=== PATIENT | male | born 1980 | race Caucasian/White ===

== ENCOUNTER 2016-06-01 19:56 | Emergency (ER) | payer MEDICARE, MEDICAID ==
[~2016-06-01 19:56] MED LIST: /ESCI10TA PO; /LOR25TA PO; /OXYC15TA PO; ALBU17IN INH; AMBI5TAB PO; AMIT25TA PO; AMOX875T PO; ANEXSIA PO; BACT2CRE TOP; BACT800T OR; BISA5TAB7 PO; BISAC5TA PO; CEFT250T8 PO; CEPH2CAP PO; COLA100C2 OR; COLA50CA3 PO; CYMB1CAP5 PO; DIAZ10TA2 PO; DIAZ5TAB PO; DRON5CAP6 PO; DULO30CA PO; ENOX40IN3 SC; EXCETAB OR; FENT50PA TD; GABA300C3 PO; GABA600T PO; GILENYA OR; GILENYA PO; HYDROCODONE; HYDROCODONE OR; HYDROCODONE PO; KLON0.5T OR; LEVA500T PO; LEVA750T PO; LEVE750T5 PO; LEVO750T33 PO; MACR100C3 PO; MACR100C42 PO; MARI2.5C PO; MEGA40SU PO; MEGA625S PO; MEGE400SUS PO; METH5TA PO; MILKSUS OR; MOVA1TAB2 PO; MUCI600T34 PO; MULTIVIT PO; NICO14DI3 TD; NICO21PAT TD; NITR100C37 PO; OLAN5TAB PO; ONDA1TAB15 PO; OXYB5TA PO; OXYC10TA12 OR; OXYC10TA97 OR; OXYC30TA72 PO; OXYC30TA84 PO; OXYC40TA6 PO; OXYCO5TA PO; PEG1POW PO; PERC5TAB8 PO; POTA20TA2 OR; PRED10TA2 OR; PSEUDOEPHEDRINE PO; RITA10TA OR; RITA5TAB OR; ROXICODONE PO; SENN1TAB2 PO; TECF240C PO; TYLE325T5 PO; Trimethoprim/Sulfamethoxazole PO; VALI5TAB PO; VENL100T PO; VENL150C43 PO; VENL75TA3 PO; VICODINES TAB OR; ZOLO100T PO; ZYPR5TAB2 PO; [UNRECOGNIZED DRUG - CODE]; [UNRECOGNIZED DRUG - CODE] PO; [UNRECOGNIZED DRUG - CODE] PO; [UNRECOGNIZED DRUG - CODE] PO; [UNRECOGNIZED DRUG - CODE] PO; antibiotic PO
[2016-06-01] MEDS ORDERED: KETOROLAC 30 MG/ML VIAL (J1885) As Ordered ONE (20:31)
--- NOTE | 2016-06-01 21:49 | EDDOCDS ---
Physician Documentation [facility] Name: Seth Faith Age: 36 yrs Sex: Male : 1980 Arrival Date: 06/01/2016 Time: 19:56 Bed 9 Private MD: Ernie Diane Disposition: 06/01/16 20:29 Discharged to Home/Self Care. Impression: Chronic pain syndrome, Opioid dependence. - Condition is Stable. - Medication Reconciliation, Local Pharmacy Hours form. - Follow up: Private Physician; When: Call to arrange an appointment; Reason: Recheck today's complaints. - Problem is chronic. - Symptoms are unchanged. Historical: - Allergies: Latex (Rash); muscle relaxers (makes spasms worse); - Home Meds: 1. Ambien 5 mg Oral tab 1 tab as needed 2. Cipro 500 mg Oral tab 1 tab every 12 hours 3. diazepam 10 mg Oral tab 1 tab 3 times per day 4. gabapentin 300 mg Oral tab 2 tab three times a day 5. Keppra 750 mg Oral tab 2 times per day 6. oxycodone 30 mg Oral tab 1 tab 4-5 times per day 7. ProAir HFA inhalation as needed - PMHx: Multiple Sclerosis; UTI; - PSHx: none; - Social history: Smoking status: Patient uses tobacco products, light tobacco smoker. Patient uses street drugs, marijuana, No barriers to communication noted, The patient speaks fluent Gabonese. - Family history: Not pertinent. - : The pt / caregiver states he / she is not on anticoagulants. Home medication list is obtained from the patient, [employer] import data. - Exposure Risk Screening:: None identified. Vital Signs: 06/01 20:09 BP 122 / 73; Pulse 75; Resp 20; Temp 96.5(O); Pulse Ox 98% on R/A; Weight 58.97 kg / jmv 130.01 lbs (R); Height 6 ft. 2 in. (187.96 cm) (R); Pain 9/10; 21:11 BP 112 / 56; Pulse 82; Resp 20; Temp 97.5(O); Pulse Ox 97% on R/A; Pain 8/10; jmv 20:09 Body Mass Index 16.69 (58.97 kg, 187.96 cm) [facility] MDM: 20:28 ketorolac 60 mg IM once ordered. cs11 20:45 Financial registration complete. zo 20:55 [facility] Payment Agreement was scanned into [employer] and attached to record. zo Administered Medications: 20:36 Drug: ketorolac 60 mg [ketorolac 30 mg/mL (1 mL) injection solution (2 mL)] Route: IM; mlc Site: left gluteus; Signatures: Ravi De Souza Craig, DO DO cs11 Randee Gallardo RN RN mlc The chart was reviewed and I authenticate all verbal orders and agree with the evaluation and treatment provided.Attachments: 20:55 [facility] Payment Agreement zo MTDD
--- NOTE | 2016-06-01 21:49 | EDDOCDS ---
Nurse's Notes [facility] Name: Seth Faith Age: 36 yrs Sex: Male : 1980 Arrival Date: 06/01/2016 Time: 19:56 Bed 9 Private MD: Ernie Diane Diagnosis: Chronic pain syndrome;Opioid dependence Presentation: 06/01 19:59 Presenting complaint: EMS states: back spasms, radiating down to legs. diagnosed with mlc UTI a few days ago. Acute neurological deficits are not present. Mechanism of Injury: No Mechanism of Injury. Adult Sepsis Screening: The patient does not have new or worsening altered mentation. Patient's respiratory rate is less than 22. Systolic blood pressure is greater than 100. Patient has a qSOFA score of 0- Negative Sepsis Screen. Suicide/Homicide risk assessment- the patient denies having any suicidal and/or homicidal ideations and does not present with any other emotional, behavioral or mental health complaints. Status: Patient is not a government services professional or dependent. Transition of care: patient was not received from another setting of care. 19:59 Acuity: ROBYN Level 4 mlc 19:59 Method Of Arrival: Ambulance mlc Triage Assessment: 20:04 General: Appears in no apparent distress, Behavior is cooperative. Pain: Location: low mlc back area and mid back area Pain currently is 9 out of 10 on a pain scale. Pain radiates to right leg and left leg. HIV screening NA for this visit Offered previously. The patient is triaged at the bedside. See Assessment in Nurses Notes section of ED record. Neurological: Level of Consciousness is awake, alert, obeys commands, Oriented to person, place, time. Respiratory: Airway is patent Respiratory effort is even, unlabored, Respiratory pattern is regular. Derm: Skin is normal. Musculoskeletal: Circulation, motion, and sensation intact. Historical: - Allergies: Latex (Rash); muscle relaxers (makes spasms worse); - Home Meds: 1. Ambien 5 mg Oral tab 1 tab as needed 2. Cipro 500 mg Oral tab 1 tab every 12 hours 3. diazepam 10 mg Oral tab 1 tab 3 times per day 4. gabapentin 300 mg Oral tab 2 tab three times a day 5. Keppra 750 mg Oral tab 2 times per day 6. oxycodone 30 mg Oral tab 1 tab 4-5 times per day 7. ProAir HFA inhalation as needed - PMHx: Multiple Sclerosis; UTI; - PSHx: none; - Social history: Smoking status: Patient uses tobacco products, light tobacco smoker. Patient uses street drugs, marijuana, No barriers to communication noted, The patient speaks fluent Persian. - Family history: Not pertinent. - : The pt / caregiver states he / she is not on anticoagulants. Home medication list is obtained from the patient, [employer] import data. - Exposure Risk Screening:: None identified. Screenin:06 Screening information is obtained from the patient. Fall risk: At risk due to gait mlc disturbance. Assistance ADL's: requires no assistance with activities of daily living. Abuse/DV Screen: The patient / caregiver reports he/she is: not in a situation that causes fear, pain or injury. Nutritional screening: No deficits noted. Advance Directives: Currently, there is no health care proxy. There is an active DNR order but there is no copy available at this time. There is no Power of Visiting Professor. home support is inadequate. Assessment: 20:07 General: see triage assessment . mlc 20:36 Reassessment: Patient appears in no apparent distress at this time. pt medicated per mlc order. pt states that a [employer]ICAL INFORMAT[employer] SPEC is supposed to be coming to his home and helping but has not been showing up. pt states he wishes to speak to a PSA. Kati Yeung, PSA at bedside. . 21:30 General: Appears in no apparent distress, comfortable, Behavior is cooperative. mlc Neurological: Level of Consciousness is awake, alert, obeys commands, Oriented to person, place, time. Respiratory: Airway is patent Respiratory effort is even, unlabored, Respiratory pattern is regular. Derm: Skin is normal. Social Work Consult: 21:07 Social Work Note: Met pt at bedside regarding home care services at home. Pt reports ml4 having [facility] in the home, but does not feel his services are adequate. Admits his elementary school social worker is attempting to transfer his care to [place], however awaiting approval. Correction and Assisting Nursing Care was discussed, however pt refused. Additional referrals for outp services was given at bedside, no concerns noted. Vital Signs: 20:09 BP 122 / 73; Pulse 75; Resp 20; Temp 96.5(O); Pulse Ox 98% on R/A; Weight 58.97 kg (R); jmv Height 6 ft. 2 in. (187.96 cm) (R); Pain 9/10; 21:11 BP 112 / 56; Pulse 82; Resp 20; Temp 97.5(O); Pulse Ox 97% on R/A; Pain 8/10; jmv 20:09 Body Mass Index 16.69 (58.97 kg, 187.96 cm) [facility] Vitals: 20:04 Log In Time N/A - ambulance arrival. mlc ED Course: 19:58 Patient visited by Karli Rodríguez PCA. tmm1 19:58 Ernie Diane is Private Physician. tmm1 19:58 Randee Gallardo RN is Primary Nurse. tmm1 19:58 Patient moved to Waiting tmm1 19:58 Patient moved to 9 tmm1 19:59 Zachary Camara DO is Attending Physician. cs11 19:59 Patient visited by Zachary Camara DO. cs11 20:01 Triage Initiated mlc 20:08 Patient visited by Randee Gallardo RN. mlc 20:12 Patient visited by Catalino Grant PCA. jmv 20:12 Pt greeted and oriented to ED. Patient advised of names of staff involved in care, [facility] location of call cary, wait times and NPO status. Patient has correct armband on for positive identification. Placed in gown. Bed in low position. Call light in reach. Side rails up X2. Pulse ox on. NIBP on. 20:29 Patient visited by Kati Yeung PSA. ml4 20:37 Patient visited by Randee Gallardo RN. mlc 20:55 [facility] Payment Agreement was scanned into [employer] and attached to record. zo 21:07 Patient visited by Kati Yeung PSA. ml4 21:12 Patient visited by Catalino Grant PCA. jmv 21:30 The patient / caregiver is instructed regarding the plan of care and ED course. mlc 21:30 No IV's were initiated during this patient's visit. No procedures done that require mlc assistance. 21:31 Patient visited by Randee Gallardo RN. mlc 21:48 Cleaned of incontinence. alvaro 21:49 Patient visited by Stephanie Singer PCA. alvaro Administered Medications: 20:36 Drug: ketorolac 60 mg [ketorolac 30 mg/mL (1 mL) injection solution (2 mL)] Route: IM; mlc Site: left gluteus; Order Results: There are currently no results for this order. Outcome: 20:29 Discharge ordered by Provider. cs11 21:30 Discharge Assessment: Patient awake, alert and oriented x 3. No cognitive and/or mlc functional deficits noted. Patient verbalized understanding of disposition instructions. patient administered narcotics - no. The following High Risk Discharge criteria are identified: None. Discharged to home via ambulance. Condition: stable. Discharge instructions given to patient, Instructed on discharge instructions, Demonstrated understanding of instructions, Pt was receptive of discharge instructions/ teaching. No special radiology studies were completed. Property sent home with patient. 21:49 Patient left the ED. mlc Signatures: Kati Yeung, PSA PSA ml4 Ravi De Souza Destiny, LAUNDRY BAG PUNCH OPERATOR LAUNDRY BAG PUNCH OPERATOR alvaro Zachary Camara, DO DO cs11 aKrli Rodríguez, LAUNDRY BAG PUNCH OPERATOR LAUNDRY BAG PUNCH OPERATOR tmm1 Randee Gallardo,RN RN mlc Catalino Grant, LAUNDRY BAG PUNCH OPERATOR LAUNDRY BAG PUNCH OPERATOR jmv MTDD
--- NOTE | 2016-06-03 22:49 | EDDOCDS ---
Physician Documentation [facility] Name: Seth Faith Age: 36 yrs Sex: Male : 1980 Arrival Date: 06/01/2016 Time: 19:56 Bed 9 Private MD: Ernie Diane Disposition: 06/01/16 20:29 Discharged to Home/Self Care. Impression: Chronic pain syndrome, Opioid dependence. - Condition is Stable. - Medication Reconciliation, Local Pharmacy Hours form. - Follow up: Private Physician; When: Call to arrange an appointment; Reason: Recheck today's complaints. - Problem is chronic. - Symptoms are unchanged. Historical: - Allergies: Latex (Rash); muscle relaxers (makes spasms worse); - Home Meds: 1. Ambien 5 mg Oral tab 1 tab as needed 2. Cipro 500 mg Oral tab 1 tab every 12 hours 3. diazepam 10 mg Oral tab 1 tab 3 times per day 4. gabapentin 300 mg Oral tab 2 tab three times a day 5. Keppra 750 mg Oral tab 2 times per day 6. oxycodone 30 mg Oral tab 1 tab 4-5 times per day 7. ProAir HFA inhalation as needed - PMHx: Multiple Sclerosis; UTI; - PSHx: none; - Social history: Smoking status: Patient uses tobacco products, light tobacco smoker. Patient uses street drugs, marijuana, No barriers to communication noted, The patient speaks fluent Comoran. - Family history: Not pertinent. - : The pt / caregiver states he / she is not on anticoagulants. Home medication list is obtained from the patient, [place] import data. - Exposure Risk Screening:: None identified. Vital Signs: 06/01 20:09 BP 122 / 73; Pulse 75; Resp 20; Temp 96.5(O); Pulse Ox 98% on R/A; Weight 58.97 kg / jmv 130.01 lbs (R); Height 6 ft. 2 in. (187.96 cm) (R); Pain 9/10; 21:11 BP 112 / 56; Pulse 82; Resp 20; Temp 97.5(O); Pulse Ox 97% on R/A; Pain 8/10; jmv 20:09 Body Mass Index 16.69 (58.97 kg, 187.96 cm) [facility] MDM: 20:28 ketorolac 60 mg IM once ordered. cs11 20:45 Financial registration complete. zo 20:55 [facility] Payment Agreement was scanned into [employer] and attached to record. zo 06/02 06:23 T-Sheet-- Draft Copy was scanned into [employer] and attached to record. hs2 Administered Medications: 06/01 20:36 Drug: ketorolac 60 mg [ketorolac 30 mg/mL (1 mL) injection solution (2 mL)] Route: IM; mlc Site: left gluteus; Signatures: Ravi De Souza Craig, DO cs11 Randee GallardoRN RN mlc Adelina Chowdhury, Reg Reg hs2 The chart was reviewed and I authenticate all verbal orders and agree with the evaluation and treatment provided.Attachments: 20:55 [facility] Payment Agreement zo 06/02 06:23 T-Sheet-- Draft Copy hs2 Chart Complete MTDD
--- NOTE | 2016-06-03 22:49 | EDDOCDS ---
Physician Documentation [facility] Name: Seth Faith Age: 36 yrs Sex: Male : 1980 Arrival Date: 06/01/2016 Time: 19:56 Bed 9 Private MD: Ernie Diane Disposition: 06/01/16 20:29 Discharged to Home/Self Care. Impression: Chronic pain syndrome, Opioid dependence. - Condition is Stable. - Medication Reconciliation, Local Pharmacy Hours form. - Follow up: Private Physician; When: Call to arrange an appointment; Reason: Recheck today's complaints. - Problem is chronic. - Symptoms are unchanged. Historical: - Allergies: Latex (Rash); muscle relaxers (makes spasms worse); - Home Meds: 1. Ambien 5 mg Oral tab 1 tab as needed 2. Cipro 500 mg Oral tab 1 tab every 12 hours 3. diazepam 10 mg Oral tab 1 tab 3 times per day 4. gabapentin 300 mg Oral tab 2 tab three times a day 5. Keppra 750 mg Oral tab 2 times per day 6. oxycodone 30 mg Oral tab 1 tab 4-5 times per day 7. ProAir HFA inhalation as needed - PMHx: Multiple Sclerosis; UTI; - PSHx: none; - Social history: Smoking status: Patient uses tobacco products, light tobacco smoker. Patient uses street drugs, marijuana, No barriers to communication noted, The patient speaks fluent Honduran. - Family history: Not pertinent. - : The pt / caregiver states he / she is not on anticoagulants. Home medication list is obtained from the patient, [employer] import data. - Exposure Risk Screening:: None identified. Vital Signs: 06/01 20:09 BP 122 / 73; Pulse 75; Resp 20; Temp 96.5(O); Pulse Ox 98% on R/A; Weight 58.97 kg / jmv 130.01 lbs (R); Height 6 ft. 2 in. (187.96 cm) (R); Pain 9/10; 21:11 BP 112 / 56; Pulse 82; Resp 20; Temp 97.5(O); Pulse Ox 97% on R/A; Pain 8/10; jmv 20:09 Body Mass Index 16.69 (58.97 kg, 187.96 cm) [facility] MDM: 20:28 ketorolac 60 mg IM once ordered. cs11 20:45 Financial registration complete. zo 20:55 [facility] Payment Agreement was scanned into [employer] and attached to record. zo 06/02 06:23 T-Sheet-- Draft Copy was scanned into [employer] and attached to record. hs2 Administered Medications: 06/01 20:36 Drug: ketorolac 60 mg [ketorolac 30 mg/mL (1 mL) injection solution (2 mL)] Route: IM; mlc Site: left gluteus; Signatures: Ravi De Souza Craig, DO cs11 Randee GallardoRN RN mlc Adelina Chowdhury, Reg Reg hs2 The chart was reviewed and I authenticate all verbal orders and agree with the evaluation and treatment provided.Attachments: 20:55 [facility] Payment Agreement zo 06/02 06:23 T-Sheet-- Draft Copy hs2 Chart Complete MTDD
--- NOTE | 2016-06-03 22:49 | EDDOCDS ---
Nurse's Notes [facility] Name: Seth Faith Age: 36 yrs Sex: Male : 1980 Arrival Date: 06/01/2016 Time: 19:56 Bed 9 Private MD: Ernie Diane Diagnosis: Chronic pain syndrome;Opioid dependence Presentation: 06/01 19:59 Presenting complaint: EMS states: back spasms, radiating down to legs. diagnosed with mlc UTI a few days ago. Acute neurological deficits are not present. Mechanism of Injury: No Mechanism of Injury. Adult Sepsis Screening: The patient does not have new or worsening altered mentation. Patient's respiratory rate is less than 22. Systolic blood pressure is greater than 100. Patient has a qSOFA score of 0- Negative Sepsis Screen. Suicide/Homicide risk assessment- the patient denies having any suicidal and/or homicidal ideations and does not present with any other emotional, behavioral or mental health complaints. Status: Patient is not a family services manager or dependent. Transition of care: patient was not received from another setting of care. 19:59 Acuity: ROBYN Level 4 mlc 19:59 Method Of Arrival: Ambulance mlc Triage Assessment: 20:04 General: Appears in no apparent distress, Behavior is cooperative. Pain: Location: low mlc back area and mid back area Pain currently is 9 out of 10 on a pain scale. Pain radiates to right leg and left leg. HIV screening NA for this visit Offered previously. The patient is triaged at the bedside. See Assessment in Nurses Notes section of ED record. Neurological: Level of Consciousness is awake, alert, obeys commands, Oriented to person, place, time. Respiratory: Airway is patent Respiratory effort is even, unlabored, Respiratory pattern is regular. Derm: Skin is normal. Musculoskeletal: Circulation, motion, and sensation intact. Historical: - Allergies: Latex (Rash); muscle relaxers (makes spasms worse); - Home Meds: 1. Ambien 5 mg Oral tab 1 tab as needed 2. Cipro 500 mg Oral tab 1 tab every 12 hours 3. diazepam 10 mg Oral tab 1 tab 3 times per day 4. gabapentin 300 mg Oral tab 2 tab three times a day 5. Keppra 750 mg Oral tab 2 times per day 6. oxycodone 30 mg Oral tab 1 tab 4-5 times per day 7. ProAir HFA inhalation as needed - PMHx: Multiple Sclerosis; UTI; - PSHx: none; - Social history: Smoking status: Patient uses tobacco products, light tobacco smoker. Patient uses street drugs, marijuana, No barriers to communication noted, The patient speaks fluent Korean. - Family history: Not pertinent. - : The pt / caregiver states he / she is not on anticoagulants. Home medication list is obtained from the patient, Glio import data. - Exposure Risk Screening:: None identified. Screenin:06 Screening information is obtained from the patient. Fall risk: At risk due to gait mlc disturbance. Assistance ADL's: requires no assistance with activities of daily living. Abuse/DV Screen: The patient / caregiver reports he/she is: not in a situation that causes fear, pain or injury. Nutritional screening: No deficits noted. Advance Directives: Currently, there is no health care proxy. There is an active DNR order but there is no copy available at this time. There is no Power of Telecommunication Operator. home support is inadequate. Assessment: 20:07 General: see triage assessment . mlc 20:36 Reassessment: Patient appears in no apparent distress at this time. pt medicated per mlc order. pt states that a BIOMEDICAL ENGINEERING SUPERVISOR is supposed to be coming to his home and helping but has not been showing up. pt states he wishes to speak to a PSA. Kati Yeung, PSA at bedside. . 21:30 General: Appears in no apparent distress, comfortable, Behavior is cooperative. mlc Neurological: Level of Consciousness is awake, alert, obeys commands, Oriented to person, place, time. Respiratory: Airway is patent Respiratory effort is even, unlabored, Respiratory pattern is regular. Derm: Skin is normal. Social Work Consult: 21:07 Social Work Note: Met pt at bedside regarding home care services at home. Pt reports ml4 having [facility] in the home, but does not feel his services are adequate. Admits his social security benefits interviewer is attempting to transfer his care to [place], however awaiting approval. Long Term and Assisting Nursing Care was discussed, however pt refused. Additional referrals for outp services was given at bedside, no concerns noted. Vital Signs: 20:09 BP 122 / 73; Pulse 75; Resp 20; Temp 96.5(O); Pulse Ox 98% on R/A; Weight 58.97 kg (R); jmv Height 6 ft. 2 in. (187.96 cm) (R); Pain 9/10; 21:11 BP 112 / 56; Pulse 82; Resp 20; Temp 97.5(O); Pulse Ox 97% on R/A; Pain 8/10; jmv 20:09 Body Mass Index 16.69 (58.97 kg, 187.96 cm) [facility] Vitals: 20:04 Log In Time N/A - ambulance arrival. mlc ED Course: 19:58 Patient visited by Karli Rodríguez PCA. tmm1 19:58 Ernie Diane is Private Physician. tmm1 19:58 Randee Gallardo RN is Primary Nurse. tmm1 19:58 Patient moved to Waiting tmm1 19:58 Patient moved to 9 tmm1 19:59 Zachary Camara DO is Attending Physician. cs11 19:59 Patient visited by Zachary Camara DO. cs11 20:01 Triage Initiated mlc 20:08 Patient visited by Randee Gallardo RN. mlc 20:12 Patient visited by Catalino Grant PCA. jmv 20:12 Pt greeted and oriented to ED. Patient advised of names of staff involved in care, [facility] location of call cary, wait times and NPO status. Patient has correct armband on for positive identification. Placed in gown. Bed in low position. Call light in reach. Side rails up X2. Pulse ox on. NIBP on. 20:29 Patient visited by Kati Yeung PSA. ml4 20:37 Patient visited by Randee Gallardo RN. mlc 20:55 [facility] Payment Agreement was scanned into [employer] and attached to record. zo 21:07 Patient visited by Kati Yeung PSA. ml4 21:12 Patient visited by Catalino Grant PCA. jmv 21:30 The patient / caregiver is instructed regarding the plan of care and ED course. mlc 21:30 No IV's were initiated during this patient's visit. No procedures done that require mlc assistance. 21:31 Patient visited by Randee Gallardo RN. mlc 21:48 Cleaned of incontinence. alvaro 21:49 Patient visited by Stephanie Singer PCA. alvaro 06/02 06:23 T-Sheet-- Draft Copy was scanned into [employer] and attached to record. hs2 Administered Medications: 01/01 20:36 Drug: ketorolac 60 mg [ketorolac 30 mg/mL (1 mL) injection solution (2 mL)] Route: IM; mlc Site: left gluteus; Order Results: There are currently no results for this order. Outcome: 20:29 Discharge ordered by Provider. cs11 21:30 Discharge Assessment: Patient awake, alert and oriented x 3. No cognitive and/or mlc functional deficits noted. Patient verbalized understanding of disposition instructions. patient administered narcotics - no. The following High Risk Discharge criteria are identified: None. Discharged to home via ambulance. Condition: stable. Discharge instructions given to patient, Instructed on discharge instructions, Demonstrated understanding of instructions, Pt was receptive of discharge instructions/ teaching. No special radiology studies were completed. Property sent home with patient. 21:49 Patient left the ED. [facility] [place] Signatures: Kati Yeung, PSA PSA ml4 Ravi De Souza Destiny, CONTENT ANALYST CONTENT ANALYST alvaro Zachary Camara, DO DO cs11 Karli Rodríguez, CONTENT ANALYST CONTENT ANALYST tmm1 Randee Gallardo,CHERISE RN mlc Adelnia Chowdhury, Reg Reg hs2 Catalino Grant, CONTENT ANALYST CONTENT ANALYST jmv Chart Complete MTDD
== END 2016-06-01 21:49 | disposition home or self-care (01) ==
LOC: M ED 19:56
DX: G89.29 Other chronic pain (principal); F11.20 Opioid dependence, uncomplicated; G35 Multiple sclerosis; Z72.0 Tobacco use; Z79.899 Other long term (current) drug therapy; Z91.040 Latex allergy status; Z88.8 Allergy status to other drugs, medicaments and biological substances
CPT/HCPCS: 96372; 99283; J1885

== ENCOUNTER 2016-06-02 15:14 | Emergency (ER) | payer MEDICARE, MEDICAID ==
[2016-06-02 18:35] LABS: BASO % 0.5 % (0.0-1.0); EOS # 0.2 K/mm3 (0.0-0.50); EOS % 1.8 % (0.0-3.0); LARGE UNSTAINED CELL # 0.2 K/mm3 (0.0-0.4); LARGE UNSTAINED CELL % 2.4 % (0.0-4.0); LYMPH # 2.7 K/mm3 (1.5-4.5); LYMPH % 31.5 % (24.0-44.0); MEAN CORPUSCULAR VOLUME 87.4 fl (80.0-96.0); MONO # 0.6 K/mm3 (0.0-0.8); MONO % 6.7 % (0.0-5.0); NEUTROPHILS # 4.8 K/mm3 (1.8-7.7); PLATELET COUNT, AUTOMATED 370 k/mm3 (150-450); RED CELL DISTRIBUTION WIDTH 13.9 % (11.5-14.5); WHITE BLOOD COUNT 8.4 K/mm3 (4.0-10.0)
[2016-06-02 19:01] LABS: ALBUMIN 3.6 GM/DL (3.2-5.2); ALBUMIN/GLOBULIN RATIO 1.09 (1.00-1.93); ALKALINE PHOSPHATASE 126 U/L (45-117); ALT/SGPT 12 U/L (12-78); ANION GAP 8 MEQ/L (8-16); AST/SGOT 11 U/L (15-37); BILIRUBIN,DIRECT < 0.1 MG/DL (0.0-0.2); BILIRUBIN,TOTAL 0.3 MG/DL (0.2-1.0); BLOOD UREA NITROGEN 20 MG/DL (7-18); CARBON DIOXIDE LEVEL 29 MEQ/L (21-32); CHLORIDE LEVEL 109 MEQ/L (98-107); CREATININE FOR GFR 0.68 MG/DL (0.70-1.30); GLOMERULAR FILTRATION RATE > 60.0 (>60); GLUCOSE, FASTING 79 MG/DL (70-105); POTASSIUM SERUM 3.6 MEQ/L (3.5-5.1); SODIUM LEVEL 146 MEQ/L (136-145); TOTAL PROTEIN 6.9 GM/DL (6.4-8.2)
--- NOTE | 2016-06-02 20:00 | EDDOCDS ---
Physician Documentation [facility] Name: Seth Faith Age: 36 yrs Sex: Male : 1980 Arrival Date: 06/02/2016 Time: 15:14 Bed 14 Private MD: Disposition: 06/02 19:12 Critical Care: Critical care not applicable. pc Disposition: 06/02/16 19:14 Discharged to Home/Self Care. Impression: Chronic pain syndrome, Malingerer [conscious simulation], Multiple sclerosis. - Condition is Stable. - Discharge Instructions: Chronic Pain. - Medication Reconciliation, Local Pharmacy Hours form. - Follow up: Ernie Diane; When: Tomorrow; Reason: Continuance of care. - Problem is chronic. - Symptoms are unchanged. Historical: - Allergies: Latex (Rash); muscle relaxers (makes spasms worse); - Home Meds: 1. Ambien 5 mg Oral tab 1 tab as needed 2. Cipro 500 mg Oral tab 1 tab every 12 hours 3. diazepam 10 mg Oral tab 1 tab 3 times per day hasnt taken in 1 week 4. gabapentin 300 mg Oral tab 2 tab three times a day 5. Keppra 750 mg Oral tab 2 times per day 6. oxycodone 30 mg Oral tab 1 tab 4-5 times per day couple of days 7. ProAir HFA inhalation as needed - PMHx: Multiple Sclerosis; UTI; - PSHx: none; - Social history: Smoking status: Patient states former smoker of tobacco. No barriers to communication noted, The patient speaks fluent Mauritanian, Speaks appropriately for age. - Family history: Not pertinent. - : The pt / caregiver states he / she is not on anticoagulants. Home medication list is obtained from the patient. - Exposure Risk Screening:: None identified. Vital Signs: 15:22 BP 117 / 72; Pulse 74; Resp 18; Temp 98.5(O); Pulse Ox 99% on R/A; Weight 58.97 kg / nb2 130.01 lbs (R); Height 6 ft. 2 in. (187.96 cm) (R); Pain 9/10; 17:16 BP 112 / 68; Pulse 78; Resp 16; Pulse Ox 100% on R/A; js13 19:24 BP 125 / 81; Pulse 70; Resp 18; Temp 98.3(TE); Pulse Ox 100% on R/A; Pain 8/10; alvaro 15:22 Body Mass Index 16.69 (58.97 kg, 187.96 cm) nb2 MDM: 17:45 IV Saline Lock ordered. fg 17:45 Undress patient appropriately for examination ordered. fg 17:46 NOTHING BY MOUTH+DIET ordered. EDMS 17:46 Basic Metabolic Profile Ordered. EDMS 17:46 CBC with Diff Ordered. EDMS 17:46 Lipase Ordered. EDMS 17:46 Liver Profile Ordered. EDMS 18:46 Financial registration complete. zo 18:46 [facility] Payment Agreement was scanned into [employer] and attached to record. zo 19:05 Basic Metabolic Profile Reviewed. pc 19:05 CBC with Diff Reviewed. pc 19:05 Liver Profile Reviewed. pc 19:05 Lipase Reviewed. pc 19:12 Data reviewed: old medical records, vital signs, nurses notes, lab test results. Test pc interpretation: LAB - all labs as ordered have been reviewed, interpreted and considered in the overall management of the clinical presentation;. The patient has been re-examined and re-evaluated. The clinical presentation did not require any ED treatment or interventions. as he is tolerating PO fluids, has had a normal bowel movement in the ED and has essentially slept through most of his ED visit, per RN reports. Disposition: The historical points, examination findings, and any diagnostic results supporting the provided diagnosis, were discussed with the patient or legal guardian. The need for outpatient follow up with the provider listed on their discharge instructions was discussed. They were encouraged to return to [facility], or the nearest ED, if symptoms worsen/persist, or for any other questions/concerns. Administered Medications: 19:12 CANCELLED (Other Intervention Used): NS 0.9% 1000 ml IV at bolus once pc Signatures: Dispatcher [employer] EDMN Kendrick Sears MD MD pc Michelson, Staci, RN RN srm Newman, Jill New, RN RN jan Olin, Zoeann zo Sullivan, Jennifer, RN RN js13 Gill, Frances, MD MD fg The chart was reviewed and I authenticate all verbal orders and agree with the evaluation and treatment provided.Corrections: (The following items were deleted from the chart) 19:12 19:07 NS 0.9% 1000 ml IV at bolus once ordered. pc pc Attachments: 18:46 [facility] Payment Agreement zo MTDD
--- NOTE | 2016-06-02 20:00 | EDDOCDS ---
Nurse's Notes [facility] Name: Seth Faith Age: 36 yrs Sex: Male : 1980 Arrival Date: 06/02/2016 Time: 15:14 Bed 14 Private MD: Diagnosis: Chronic pain syndrome;Malingerer [conscious simulation];Multiple sclerosis Presentation: 06/02 15:18 Presenting complaint: Patient states: all over abd pain and lower back spasms. hx of srm same- seen x4 in past 6 days. Risk factors: the patient reports not having a history of previous torsion. Adult Sepsis Screening: The patient does not have new or worsening altered mentation. Patient's respiratory rate is less than 22. Systolic blood pressure is greater than 100. Patient has a qSOFA score of 0- Negative Sepsis Screen. Suicide/Homicide risk assessment- the patient denies having any suicidal and/or homicidal ideations and does not present with any other emotional, behavioral or mental health complaints. Status: Patient is not a underwriting service representative or dependent. Transition of care: patient was not received from another setting of care. 15:18 Acuity: ROBYN Level 3 [facility] 15:18 Method Of Arrival: Ambulance [facility] Triage Assessment: 15:21 General: Appears in no apparent distress, ill, Behavior is appropriate for age, srm cooperative. Pain: Pain currently is 9 out of 10 on a pain scale. HIV screening NA for this visit Offered previously. GI: Reports all over abd pain. Historical: - Allergies: Latex (Rash); muscle relaxers (makes spasms worse); - Home Meds: 1. Ambien 5 mg Oral tab 1 tab as needed 2. Cipro 500 mg Oral tab 1 tab every 12 hours 3. diazepam 10 mg Oral tab 1 tab 3 times per day hasnt taken in 1 week 4. gabapentin 300 mg Oral tab 2 tab three times a day 5. Keppra 750 mg Oral tab 2 times per day 6. oxycodone 30 mg Oral tab 1 tab 4-5 times per day couple of days 7. ProAir HFA inhalation as needed - PMHx: Multiple Sclerosis; UTI; - PSHx: none; - Social history: Smoking status: Patient states former smoker of tobacco. No barriers to communication noted, The patient speaks fluent Malay, Speaks appropriately for age. - Family history: Not pertinent. - : The pt / caregiver states he / she is not on anticoagulants. Home medication list is obtained from the patient. - Exposure Risk Screening:: None identified. Screenin:22 Screening information is obtained from the patient. Fall risk: At risk due to MS. srm Assistance ADL's: requires no assistance with activities of daily living. Abuse/DV Screen: The patient / caregiver reports he/she is: not in a situation that causes fear, pain or injury. Nutritional screening: No deficits noted. Advance Directives: There is an active DNR order but there is no copy available at this time. home support is adequate. Assessment: 15:24 General: Appears in no apparent distress, Behavior is appropriate for age, cooperative. js13 General: Patient is laughing and joking with staff. . Pain: Location: abdomen. Neurological: Level of Consciousness is awake, alert. Respiratory: Airway is patent Respiratory effort is even, unlabored, Respiratory pattern is regular, symmetrical. GI: Abdomen is non- distended Abd is soft Abd is tender to palpation. Derm: Skin is pink, warm & dry. 16:00 General: Appears in no apparent distress, patient is sleeping soundly resp unlabored. ml6 Pain:. GI: Abdomen is flat, non- distended Bowel sounds present X 4 quads. Abd is soft and non tender X 4 quads. 16:09 General: Appears in no apparent distress, comfortable, to be sleeping. Respiratory: js13 Airway is patent Respiratory effort is even, unlabored, Respiratory pattern is regular, symmetrical. Derm: Skin is pink, warm & dry. 17:16 Adult Sepsis Screening: The patient does not have new or worsening altered mentation. js13 Patient's respiratory rate is less than 22. Systolic blood pressure is greater than 100. Patient has a qSOFA score of 0- Negative Sepsis Screen. General: Appears in no apparent distress, comfortable, Behavior is appropriate for age, cooperative. Pain: Location: abdomen. Neurological: Level of Consciousness is awake, alert. Respiratory: Airway is patent Respiratory effort is even, unlabored, Respiratory pattern is regular, symmetrical. GI: Abdomen is flat, non- distended Bowel sounds present X 4 quads. Abd is soft and non tender. Derm: Skin is pink, warm & dry. 17:57 General: IV access cancelled per provider.. js13 18:12 General: Appears in no apparent distress, comfortable, Behavior is appropriate for age, js13 cooperative. Pain: Location: abdomen. Neurological: Level of Consciousness is awake, alert. Respiratory: Airway is patent Respiratory effort is even, unlabored, Respiratory pattern is regular, symmetrical. GI: Abdomen is flat, non- distended Bowel sounds present X 4 quads. Abd is soft and non tender. Derm: Skin is pink, warm & dry. 18:43 General: Patient was incontinent of a large amount of stool. . js13 19:23 General: Appears in no apparent distress, comfortable, Behavior is appropriate for age, js13 cooperative. Pain: Location: abdomen. Neurological: Level of Consciousness is awake, alert. Respiratory: Airway is patent Respiratory effort is even, unlabored, Respiratory pattern is regular, symmetrical. GI: Abdomen is flat, non- distended Bowel sounds present X 4 quads. Abd is soft and non tender. Derm: Skin is pink, warm & dry. Vital Signs: 15:22 BP 117 / 72; Pulse 74; Resp 18; Temp 98.5(O); Pulse Ox 99% on R/A; Weight 58.97 kg (R); nb2 Height 6 ft. 2 in. (187.96 cm) (R); Pain 9/10; 17:16 BP 112 / 68; Pulse 78; Resp 16; Pulse Ox 100% on R/A; js13 19:24 BP 125 / 81; Pulse 70; Resp 18; Temp 98.3(TE); Pulse Ox 100% on R/A; Pain 8/10; alvaro 15:22 Body Mass Index 16.69 (58.97 kg, 187.96 cm) nb2 Vitals: 15:22 Log In Time N/A - ambulance arrival. nb2 ED Course: 15:15 Patient visited by Na Oliva, Concrete Swimming Pool Installer. deg 15:15 Patient moved to Waiting deg 15:16 Fabi Salomon,RN is Primary Nurse. deg 15:16 Patient moved to 14 deg 15:19 Triage Initiated [facility] 15:22 Patient visited by Marsha Curtis. nb2 15:22 Bed in low position. Call light in reach. Side rails up X2. nb2 15:22 The patient / caregiver is instructed regarding the plan of care and ED course. [facility] 15:26 Patient visited by Fabi Salomon,CHERISE. [facility] 16:10 Patient visited by Fabi Salomon RN. js13 17:24 Patient visited by Fabi Salomon RN. js13 17:43 Sara Sorto MD is Attending Physician. fg 17:54 Pt greeted and oriented to ED. Patient advised of names of staff involved in care, dem1 location of call cary, wait times and NPO status. Placed in gown. 17:55 Patient visited by Kris Borrero. dem1 17:57 No IV's were initiated during this patient's visit. No procedures done that require genia assistance. 18:13 Patient visited by Fabi Salomon RN. js13 18:34 Patient visited by Sara Sorto MD. fg 18:46 [facility] Payment Agreement was scanned into [employer] and attached to record. zo 18:57 Repositioned patient. Cleaned of incontinence. dem1 18:58 Patient visited by Kris Borrero. dem1 19:04 Primary Nurse role handed off by Fabi Salomon RN js13 19:05 Attending Physician role handed off by Sara Sorto MD pc 19:05 Kendrick Sears MD is Attending Physician. pc 19:14 Ernie Diane is Referral Physician. pc 19:24 Patient visited by Stephanie Singer PCA. alvaro 19:25 Patient visited by Fabi Salomon RN. js13 Administered Medications: 19:12 CANCELLED (Other Intervention Used): NS 0.9% 1000 ml IV at bolus once pc Order Results: Lab Order: Basic Metabolic Profile; SPEC'M 06/02/16 18:14 Test: GLUCOSE, FASTING; Value: 79; Range: 70-105; Units: MG/DL; Status: F Test: BLOOD UREA NITROGEN; Value: 20; Range: 7-18; Abnormal: Above high normal; Units: MG/DL; Status: F Test: CREATININE FOR GFR; Value: 0.68; Range: 0.70-1.30; Abnormal: Below low normal; Units: MG/DL; Status: F Test: GLOMERULAR FILTRATION RATE; Value: > 60.0; Range: >60; Status: F Test: SODIUM LEVEL; Value: 146; Range: 136-145; Abnormal: Above high normal; Units: MEQ/L; Status: F Test: POTASSIUM SERUM; Value: 3.6; Range: 3.5-5.1; Units: MEQ/L; Status: F Test: CHLORIDE LEVEL; Value: 109; Range: 98-107; Abnormal: Above high normal; Units: MEQ/L; Status: F Test: CARBON DIOXIDE LEVEL; Value: 29; Range: 21-32; Units: MEQ/L; Status: F Test: ANION GAP; Value: 8; Range: 8-16; Units: MEQ/L; Status: F Test: CALCIUM LEVEL; Value: 9.0; Range: 8.5-10.1; Units: MG/DL; Status: F Test Note: ; Units are mL/min/1.73 m2 Chronic Kidney Disease Staging per NKF: Stage I & II GFR >=60 Normal to Mildly Decreased Stage III GFR 30-59 Moderately Decreased Stage IV GFR 15-29 Severely Decreased Stage V GFR <15 Very Little GFR Left ESRD GFR <15 on [employer] Lab Order: CBC with Diff; SPEC'M 06/02/16 18:14 Test: WHITE BLOOD COUNT; Value: 8.4; Range: 4.0-10.0; Units: K/mm3; Status: F Test: RED BLOOD COUNT; Value: 4.61; Range: 4.30-6.10; Units: M/mm3; Status: F Test: HEMOGLOBIN; Value: 12.9; Range: 14.0-18.0; Abnormal: Below low normal; Units: g/dl; Status: F Test: HEMATOCRIT; Value: 40.3; Range: 42.0-52.0; Abnormal: Below low normal; Units: %; Status: F Test: MEAN CORPUSCULAR VOLUME; Value: 87.4; Range: 80.0-96.0; Units: fl; Status: F Test: MEAN CORPUSCULAR HEMOGLOBIN; Value: 28.0; Range: 27.0-33.0; Units: pg; Status: F Test: MEAN CORPUSCULAR HGB CONC; Value: 32.0; Range: 32.0-36.5; Units: g/dl; Status: F Test: RED CELL DISTRIBUTION WIDTH; Value: 13.9; Range: 11.5-14.5; Units: %; Status: F Test: PLATELET COUNT, AUTOMATED; Value: 370; Range: 150-450; Units: k/mm3; Status: F Test: NEUTROPHILS %; Value: 57.0; Range: 36.0-66.0; Units: %; Status: F Test: LYMPH %; Value: 31.5; Range: 24.0-44.0; Units: %; Status: F Test: MONO %; Value: 6.7; Range: 0.0-5.0; Abnormal: Above high normal; Units: %; Status: F Test: EOS %; Value: 1.8; Range: 0.0-3.0; Units: %; Status: F Test: BASO %; Value: 0.5; Range: 0.0-1.0; Units: %; Status: F Test: LARGE UNSTAINED CELL %; Value: 2.4; Range: 0.0-4.0; Units: %; Status: F Test: NEUTROPHILS #; Value: 4.8; Range: 1.8-7.7; Units: K/mm3; Status: F Test: LYMPH #; Value: 2.7; Range: 1.5-4.5; Units: K/mm3; Status: F Test: MONO #; Value: 0.6; Range: 0.0-0.8; Units: K/mm3; Status: F Test: EOS #; Value: 0.2; Range: 0.0-0.50; Units: K/mm3; Status: F Test: BASO #; Value: 0.0; Range: 0.0-0.2; Units: K/mm3; Status: F Test: LARGE UNSTAINED CELL #; Value: 0.2; Range: 0.0-0.4; Units: K/mm3; Status: F Lab Order: Lipase; SPEC'M 06/02/16 18:14 Test: LIPASE; Value: 131; Range: 73-393; Units: U/L; Status: F Lab Order: Liver Profile; SPEC'M 06/02/16 18:14 Test: AST/SGOT; Value: 11; Range: 15-37; Abnormal: Below low normal; Units: U/L; Status: F Test: ALT/SGPT; Value: 12; Range: 12-78; Units: U/L; Status: F Test: ALKALINE PHOSPHATASE; Value: 126; Range: 45-117; Abnormal: Above high normal; Units: U/L; Status: F Test: BILIRUBIN,TOTAL; Value: 0.3; Range: 0.2-1.0; Units: MG/DL; Status: F Test: BILIRUBIN,DIRECT; Value: < 0.1; Range: 0.0-0.2; Units: MG/DL; Status: F Test: TOTAL PROTEIN; Value: 6.9; Range: 6.4-8.2; Units: GM/DL; Status: F Test: ALBUMIN; Value: 3.6; Range: 3.2-5.2; Units: GM/DL; Status: F Test: ALBUMIN/GLOBULIN RATIO; Value: 1.09; Range: 1.00-1.93; Status: F Outcome: 19:14 Discharge ordered by Provider. 19:23 Discharge Assessment: Patient awake, alert and oriented x 3. No cognitive and/or js13 functional deficits noted. Patient verbalized understanding of disposition instructions. patient administered narcotics - no. The following High Risk Discharge criteria are identified: None. Discharged to home via ambulance. Condition: stable. Discharge instructions given to patient, Instructed on discharge instructions, follow up and referral plans. Demonstrated understanding of instructions, Pt was receptive of discharge instructions/ teaching. No special radiology studies were completed. Property :Personal belongings accompany Pt. 19:59 Patient left the ED. mahogany Signatures: Kendrick Sears MD MD pc Murray, Denise, Concrete Swimming Pool Installer Unit deg Lisbet Martinez, RN CHERISE Singh, Jina Roberson RN Ravi Ch Matthew, RN RN ml6 Stephanie Singer, TELEPHONE TRIAGE NURSE TELEPHONE TRIAGE NURSE Kris Zaragoza Jennifer, RN RN js13 Sara Sorto MD MD fg Baart, Nicole nb2 MTDD
--- NOTE | 2016-06-04 21:00 | EDDOCDS ---
Physician Documentation [facility] Name: Seth Faith Age: 36 yrs Sex: Male : 1980 Arrival Date: 06/02/2016 Time: 15:14 Bed 14 Private MD: Disposition: 06/02 19:12 Critical Care: Critical care not applicable. pc Disposition: 06/02/16 19:14 Discharged to Home/Self Care. Impression: Chronic pain syndrome, Malingerer [conscious simulation], Multiple sclerosis. - Condition is Stable. - Discharge Instructions: Chronic Pain. - Medication Reconciliation, Local Pharmacy Hours form. - Follow up: Ernie Diane; When: Tomorrow; Reason: Continuance of care. - Problem is chronic. - Symptoms are unchanged. Historical: - Allergies: Latex (Rash); muscle relaxers (makes spasms worse); - Home Meds: 1. Ambien 5 mg Oral tab 1 tab as needed 2. Cipro 500 mg Oral tab 1 tab every 12 hours 3. diazepam 10 mg Oral tab 1 tab 3 times per day hasnt taken in 1 week 4. gabapentin 300 mg Oral tab 2 tab three times a day 5. Keppra 750 mg Oral tab 2 times per day 6. oxycodone 30 mg Oral tab 1 tab 4-5 times per day couple of days 7. ProAir HFA inhalation as needed - PMHx: Multiple Sclerosis; UTI; - PSHx: none; - Social history: Smoking status: Patient states former smoker of tobacco. No barriers to communication noted, The patient speaks fluent Danish, Speaks appropriately for age. - Family history: Not pertinent. - : The pt / caregiver states he / she is not on anticoagulants. Home medication list is obtained from the patient. - Exposure Risk Screening:: None identified. Vital Signs: 15:22 BP 117 / 72; Pulse 74; Resp 18; Temp 98.5(O); Pulse Ox 99% on R/A; Weight 58.97 kg / nb2 130.01 lbs (R); Height 6 ft. 2 in. (187.96 cm) (R); Pain 9/10; 17:16 BP 112 / 68; Pulse 78; Resp 16; Pulse Ox 100% on R/A; js13 19:24 BP 125 / 81; Pulse 70; Resp 18; Temp 98.3(TE); Pulse Ox 100% on R/A; Pain 8/10; alvaro 15:22 Body Mass Index 16.69 (58.97 kg, 187.96 cm) nb2 MDM: 17:45 IV Saline Lock ordered. fg 17:45 Undress patient appropriately for examination ordered. fg 17:46 NOTHING BY MOUTH+DIET ordered. EDMS 17:46 Basic Metabolic Profile Ordered. EDMS 17:46 CBC with Diff Ordered. EDMS 17:46 Lipase Ordered. EDMS 17:46 Liver Profile Ordered. EDMS 18:46 Financial registration complete. zo 18:46 [facility] [place] Payment Agreement was scanned into [employer] and attached to record. zo 19:05 Basic Metabolic Profile Reviewed. pc 19:05 CBC with Diff Reviewed. pc 19:05 Liver Profile Reviewed. pc 19:05 Lipase Reviewed. pc 19:12 Data reviewed: old medical records, vital signs, nurses notes, lab test results. Test pc interpretation: LAB - all labs as ordered have been reviewed, interpreted and considered in the overall management of the clinical presentation;. The patient has been re-examined and re-evaluated. The clinical presentation did not require any ED treatment or interventions. as he is tolerating PO fluids, has had a normal bowel movement in the ED and has essentially slept through most of his ED visit, per RN reports. Disposition: The historical points, examination findings, and any diagnostic results supporting the provided diagnosis, were discussed with the patient or legal guardian. The need for outpatient follow up with the provider listed on their discharge instructions was discussed. They were encouraged to return to [facility], or the nearest ED, if symptoms worsen/persist, or for any other questions/concerns. 06/03 03:53 T-Sheet-- Draft Copy was scanned into [employer] and attached to record. hs2 03:53 Undo -Financial registration. hs2 03:53 Financial registration complete. hs2 Administered Medications: 06/02 19:12 CANCELLED (Other Intervention Used): NS 0.9% 1000 ml IV at bolus once pc Signatures: Dispatcher [employer] Kendrick Hernandez MD MD pc Michelson, Staci, RN RN srm Newman, Jill New, RN RN jan Olin, Zoeann zo Sullivan, Jennifer, RN RN jsSara Jeronimo MD MD Adelina Chowdhury, Reg Reg hs2 The chart was reviewed and I authenticate all verbal orders and agree with the evaluation and treatment provided.Corrections: (The following items were deleted from the chart) 19:12 19:07 NS 0.9% 1000 ml IV at bolus once ordered. ben contreras Attachments: 18:46 [facility] [place] Payment Agreement zo 06/03 03:53 T-Sheet-- Draft Copy hs2 Chart Complete MTDD
--- NOTE | 2016-06-04 21:00 | EDDOCDS ---
Nurse's Notes [facility] Name: Seth Faith Age: 36 yrs Sex: Male : 1980 Arrival Date: 06/02/2016 Time: 15:14 Bed 14 Private MD: Diagnosis: Chronic pain syndrome;Malingerer [conscious simulation];Multiple sclerosis Presentation: 06/02 15:18 Presenting complaint: Patient states: all over abd pain and lower back spasms. hx of srm same- seen x4 in past 6 days. Risk factors: the patient reports not having a history of previous torsion. Adult Sepsis Screening: The patient does not have new or worsening altered mentation. Patient's respiratory rate is less than 22. Systolic blood pressure is greater than 100. Patient has a qSOFA score of 0- Negative Sepsis Screen. Suicide/Homicide risk assessment- the patient denies having any suicidal and/or homicidal ideations and does not present with any other emotional, behavioral or mental health complaints. Status: Patient is not a service desk lead or dependent. Transition of care: patient was not received from another setting of care. 15:18 Acuity: ROBYN Level 3 [facility] 15:18 Method Of Arrival: Ambulance [facility] Triage Assessment: 15:21 General: Appears in no apparent distress, ill, Behavior is appropriate for age, srm cooperative. Pain: Pain currently is 9 out of 10 on a pain scale. HIV screening NA for this visit Offered previously. GI: Reports all over abd pain. Historical: - Allergies: Latex (Rash); muscle relaxers (makes spasms worse); - Home Meds: 1. Ambien 5 mg Oral tab 1 tab as needed 2. Cipro 500 mg Oral tab 1 tab every 12 hours 3. diazepam 10 mg Oral tab 1 tab 3 times per day hasnt taken in 1 week 4. gabapentin 300 mg Oral tab 2 tab three times a day 5. Keppra 750 mg Oral tab 2 times per day 6. oxycodone 30 mg Oral tab 1 tab 4-5 times per day couple of days 7. ProAir HFA inhalation as needed - PMHx: Multiple Sclerosis; UTI; - PSHx: none; - Social history: Smoking status: Patient states former smoker of tobacco. No barriers to communication noted, The patient speaks fluent Pashto, Speaks appropriately for age. - Family history: Not pertinent. - : The pt / caregiver states he / she is not on anticoagulants. Home medication list is obtained from the patient. - Exposure Risk Screening:: None identified. Screenin:22 Screening information is obtained from the patient. Fall risk: At risk due to MS. srm Assistance ADL's: requires no assistance with activities of daily living. Abuse/DV Screen: The patient / caregiver reports he/she is: not in a situation that causes fear, pain or injury. Nutritional screening: No deficits noted. Advance Directives: There is an active DNR order but there is no copy available at this time. home support is adequate. Assessment: 15:24 General: Appears in no apparent distress, Behavior is appropriate for age, cooperative. js13 General: Patient is laughing and joking with staff. . Pain: Location: abdomen. Neurological: Level of Consciousness is awake, alert. Respiratory: Airway is patent Respiratory effort is even, unlabored, Respiratory pattern is regular, symmetrical. GI: Abdomen is non- distended Abd is soft Abd is tender to palpation. Derm: Skin is pink, warm & dry. 16:00 General: Appears in no apparent distress, patient is sleeping soundly resp unlabored. ml6 Pain:. GI: Abdomen is flat, non- distended Bowel sounds present X 4 quads. Abd is soft and non tender X 4 quads. 16:09 General: Appears in no apparent distress, comfortable, to be sleeping. Respiratory: js13 Airway is patent Respiratory effort is even, unlabored, Respiratory pattern is regular, symmetrical. Derm: Skin is pink, warm & dry. 17:16 Adult Sepsis Screening: The patient does not have new or worsening altered mentation. js13 Patient's respiratory rate is less than 22. Systolic blood pressure is greater than 100. Patient has a qSOFA score of 0- Negative Sepsis Screen. General: Appears in no apparent distress, comfortable, Behavior is appropriate for age, cooperative. Pain: Location: abdomen. Neurological: Level of Consciousness is awake, alert. Respiratory: Airway is patent Respiratory effort is even, unlabored, Respiratory pattern is regular, symmetrical. GI: Abdomen is flat, non- distended Bowel sounds present X 4 quads. Abd is soft and non tender. Derm: Skin is pink, warm & dry. 17:57 General: IV access cancelled per provider.. js13 18:12 General: Appears in no apparent distress, comfortable, Behavior is appropriate for age, js13 cooperative. Pain: Location: abdomen. Neurological: Level of Consciousness is awake, alert. Respiratory: Airway is patent Respiratory effort is even, unlabored, Respiratory pattern is regular, symmetrical. GI: Abdomen is flat, non- distended Bowel sounds present X 4 quads. Abd is soft and non tender. Derm: Skin is pink, warm & dry. 18:43 General: Patient was incontinent of a large amount of stool. . js13 19:23 General: Appears in no apparent distress, comfortable, Behavior is appropriate for age, js13 cooperative. Pain: Location: abdomen. Neurological: Level of Consciousness is awake, alert. Respiratory: Airway is patent Respiratory effort is even, unlabored, Respiratory pattern is regular, symmetrical. GI: Abdomen is flat, non- distended Bowel sounds present X 4 quads. Abd is soft and non tender. Derm: Skin is pink, warm & dry. Vital Signs: 15:22 BP 117 / 72; Pulse 74; Resp 18; Temp 98.5(O); Pulse Ox 99% on R/A; Weight 58.97 kg (R); nb2 Height 6 ft. 2 in. (187.96 cm) (R); Pain 9/10; 17:16 BP 112 / 68; Pulse 78; Resp 16; Pulse Ox 100% on R/A; js13 19:24 BP 125 / 81; Pulse 70; Resp 18; Temp 98.3(TE); Pulse Ox 100% on R/A; Pain 8/10; alvaro 15:22 Body Mass Index 16.69 (58.97 kg, 187.96 cm) nb2 Vitals: 15:22 Log In Time N/A - ambulance arrival. nb2 ED Course: 15:15 Patient visited by Na Oliva, Charge Master Specialist. deg 15:15 Patient moved to Waiting deg 15:16 Fabi Salomon,RN is Primary Nurse. deg 15:16 Patient moved to 14 deg 15:19 Triage Initiated [facility] 15:22 Patient visited by Marsha Curtis. nb2 15:22 Bed in low position. Call light in reach. Side rails up X2. nb2 15:22 The patient / caregiver is instructed regarding the plan of care and ED course. [facility] 15:26 Patient visited by Fabi Salomon,CHERISE. [facility] 16:10 Patient visited by Fabi Salomon RN. js13 17:24 Patient visited by Fabi Salomon RN. js13 17:43 Sara Sorto MD is Attending Physician. fg 17:54 Pt greeted and oriented to ED. Patient advised of names of staff involved in care, dem1 location of call cary, wait times and NPO status. Placed in gown. 17:55 Patient visited by Kris Borrero. dem1 17:57 No IV's were initiated during this patient's visit. No procedures done that require [facility] assistance. 18:13 Patient visited by Fabi Salomon RN. js13 18:34 Patient visited by Sara Sorto MD. fg 18:46 [facility] [place] Agreement was scanned into [employer] and attached to record. zo 18:57 Repositioned patient. Cleaned of incontinence. dem1 18:58 Patient visited by Kris Borrero. dem1 19:04 Primary Nurse role handed off by Faib Salomon RN js13 19:05 Attending Physician role handed off by Sara Sorto MD pc 19:05 Kendrick Sears MD is Attending Physician. pc 19:14 Ernie Diane is Referral Physician. pc 19:24 Patient visited by Stephanie Singer PCA. alvaro 19:25 Patient visited by Fabi Salomon RN. js13 06/03 03:53 T-Sheet-- Draft Copy was scanned into [employer] and attached to record. hs2 Administered Medications: 06/02 19:12 CANCELLED (Other Intervention Used): NS 0.9% 1000 ml IV at bolus once pc Order Results: Lab Order: Basic Metabolic Profile; SPEC'M 06/02/16 18:14 Test: GLUCOSE, FASTING; Value: 79; Range: 70-105; Units: MG/DL; Status: F Test: BLOOD UREA NITROGEN; Value: 20; Range: 7-18; Abnormal: Above high normal; Units: MG/DL; Status: F Test: CREATININE FOR GFR; Value: 0.68; Range: 0.70-1.30; Abnormal: Below low normal; Units: MG/DL; Status: F Test: GLOMERULAR FILTRATION RATE; Value: > 60.0; Range: >60; Status: F Test: SODIUM LEVEL; Value: 146; Range: 136-145; Abnormal: Above high normal; Units: MEQ/L; Status: F Test: POTASSIUM SERUM; Value: 3.6; Range: 3.5-5.1; Units: MEQ/L; Status: F Test: CHLORIDE LEVEL; Value: 109; Range: 98-107; Abnormal: Above high normal; Units: MEQ/L; Status: F Test: CARBON DIOXIDE LEVEL; Value: 29; Range: 21-32; Units: MEQ/L; Status: F Test: ANION GAP; Value: 8; Range: 8-16; Units: MEQ/L; Status: F Test: CALCIUM LEVEL; Value: 9.0; Range: 8.5-10.1; Units: MG/DL; Status: F Test Note: ; Units are mL/min/1.73 m2 Chronic Kidney Disease Staging per NKF: Stage I & II GFR >=60 Normal to Mildly Decreased Stage III GFR 30-59 Moderately Decreased Stage IV GFR 15-29 Severely Decreased Stage V GFR <15 Very Little GFR Left ESRD GFR <15 on ARMHOLE RAISER LOCKSTITCH Lab Order: CBC with Diff; SPEC'M 06/02/16 18:14 Test: WHITE BLOOD COUNT; Value: 8.4; Range: 4.0-10.0; Units: K/mm3; Status: F Test: RED BLOOD COUNT; Value: 4.61; Range: 4.30-6.10; Units: M/mm3; Status: F Test: HEMOGLOBIN; Value: 12.9; Range: 14.0-18.0; Abnormal: Below low normal; Units: g/dl; Status: F Test: HEMATOCRIT; Value: 40.3; Range: 42.0-52.0; Abnormal: Below low normal; Units: %; Status: F Test: MEAN CORPUSCULAR VOLUME; Value: 87.4; Range: 80.0-96.0; Units: fl; Status: F Test: MEAN CORPUSCULAR HEMOGLOBIN; Value: 28.0; Range: 27.0-33.0; Units: pg; Status: F Test: MEAN CORPUSCULAR HGB CONC; Value: 32.0; Range: 32.0-36.5; Units: g/dl; Status: F Test: RED CELL DISTRIBUTION WIDTH; Value: 13.9; Range: 11.5-14.5; Units: %; Status: F Test: PLATELET COUNT, AUTOMATED; Value: 370; Range: 150-450; Units: k/mm3; Status: F Test: NEUTROPHILS %; Value: 57.0; Range: 36.0-66.0; Units: %; Status: F Test: LYMPH %; Value: 31.5; Range: 24.0-44.0; Units: %; Status: F Test: MONO %; Value: 6.7; Range: 0.0-5.0; Abnormal: Above high normal; Units: %; Status: F Test: EOS %; Value: 1.8; Range: 0.0-3.0; Units: %; Status: F Test: BASO %; Value: 0.5; Range: 0.0-1.0; Units: %; Status: F Test: LARGE UNSTAINED CELL %; Value: 2.4; Range: 0.0-4.0; Units: %; Status: F Test: NEUTROPHILS #; Value: 4.8; Range: 1.8-7.7; Units: K/mm3; Status: F Test: LYMPH #; Value: 2.7; Range: 1.5-4.5; Units: K/mm3; Status: F Test: MONO #; Value: 0.6; Range: 0.0-0.8; Units: K/mm3; Status: F Test: EOS #; Value: 0.2; Range: 0.0-0.50; Units: K/mm3; Status: F Test: BASO #; Value: 0.0; Range: 0.0-0.2; Units: K/mm3; Status: F Test: LARGE UNSTAINED CELL #; Value: 0.2; Range: 0.0-0.4; Units: K/mm3; Status: F Lab Order: Lipase; SPEC'M 06/02/16 18:14 Test: LIPASE; Value: 131; Range: 73-393; Units: U/L; Status: F Lab Order: Liver Profile; SPEC'M 06/02/16 18:14 Test: AST/SGOT; Value: 11; Range: 15-37; Abnormal: Below low normal; Units: U/L; Status: F Test: ALT/SGPT; Value: 12; Range: 12-78; Units: U/L; Status: F Test: ALKALINE PHOSPHATASE; Value: 126; Range: 45-117; Abnormal: Above high normal; Units: U/L; Status: F Test: BILIRUBIN,TOTAL; Value: 0.3; Range: 0.2-1.0; Units: MG/DL; Status: F Test: BILIRUBIN,DIRECT; Value: < 0.1; Range: 0.0-0.2; Units: MG/DL; Status: F Test: TOTAL PROTEIN; Value: 6.9; Range: 6.4-8.2; Units: GM/DL; Status: F Test: ALBUMIN; Value: 3.6; Range: 3.2-5.2; Units: GM/DL; Status: F Test: ALBUMIN/GLOBULIN RATIO; Value: 1.09; Range: 1.00-1.93; Status: F Outcome: 19:14 Discharge ordered by Provider. pc 19:23 Discharge Assessment: Patient awake, alert and oriented x 3. No cognitive and/or js13 functional deficits noted. Patient verbalized understanding of disposition instructions. patient administered narcotics - no. The following High Risk Discharge criteria are identified: None. Discharged to home via ambulance. Condition: stable. Discharge instructions given to patient, Instructed on discharge instructions, follow up and referral plans. Demonstrated understanding of instructions, Pt was receptive of discharge instructions/ teaching. No special radiology studies were completed. Property :Personal belongings accompany Pt. 19:59 Patient left the ED. mahogany Signatures: Kendrick Sears MD MD pc Murray, Denise, Charge Master Specialist Unit deg Lisbet Martinez, RN RN ajit Singh, CHERISE Holland RN, Zoeann zo Lowe, Matthew, RN RN ml6 Stephanie Singer, COMMERCIAL PLUMBER COMMERCIAL PLUMBER Kris Zaragoza Jennifer, RN RN js13 Sara Sorto MD MD fg Stanton, Hillary, Reg Reg hs2 Marsha Curtis2 Chart Complete MTDD
--- NOTE | 2016-06-04 21:00 | EDDOCDS ---
Physician Documentation [facility] Name: Seth Faith Age: 36 yrs Sex: Male : 1980 Arrival Date: 06/02/2016 Time: 15:14 Bed 14 Private MD: Disposition: 06/02 19:12 Critical Care: Critical care not applicable. pc Disposition: 06/02/16 19:14 Discharged to Home/Self Care. Impression: Chronic pain syndrome, Malingerer [conscious simulation], Multiple sclerosis. - Condition is Stable. - Discharge Instructions: Chronic Pain. - Medication Reconciliation, Local Pharmacy Hours form. - Follow up: Ernie Diane; When: Tomorrow; Reason: Continuance of care. - Problem is chronic. - Symptoms are unchanged. Historical: - Allergies: Latex (Rash); muscle relaxers (makes spasms worse); - Home Meds: 1. Ambien 5 mg Oral tab 1 tab as needed 2. Cipro 500 mg Oral tab 1 tab every 12 hours 3. diazepam 10 mg Oral tab 1 tab 3 times per day hasnt taken in 1 week 4. gabapentin 300 mg Oral tab 2 tab three times a day 5. Keppra 750 mg Oral tab 2 times per day 6. oxycodone 30 mg Oral tab 1 tab 4-5 times per day couple of days 7. ProAir HFA inhalation as needed - PMHx: Multiple Sclerosis; UTI; - PSHx: none; - Social history: Smoking status: Patient states former smoker of tobacco. No barriers to communication noted, The patient speaks fluent Zimbabwean, Speaks appropriately for age. - Family history: Not pertinent. - : The pt / caregiver states he / she is not on anticoagulants. Home medication list is obtained from the patient. - Exposure Risk Screening:: None identified. Vital Signs: 15:22 BP 117 / 72; Pulse 74; Resp 18; Temp 98.5(O); Pulse Ox 99% on R/A; Weight 58.97 kg / nb2 130.01 lbs (R); Height 6 ft. 2 in. (187.96 cm) (R); Pain 9/10; 17:16 BP 112 / 68; Pulse 78; Resp 16; Pulse Ox 100% on R/A; js13 19:24 BP 125 / 81; Pulse 70; Resp 18; Temp 98.3(TE); Pulse Ox 100% on R/A; Pain 8/10; alvaro 15:22 Body Mass Index 16.69 (58.97 kg, 187.96 cm) nb2 MDM: 17:45 IV Saline Lock ordered. fg 17:45 Undress patient appropriately for examination ordered. fg 17:46 NOTHING BY MOUTH+DIET ordered. EDMS 17:46 Basic Metabolic Profile Ordered. EDMS 17:46 CBC with Diff Ordered. EDMS 17:46 Lipase Ordered. EDMS 17:46 Liver Profile Ordered. EDMS 18:46 Financial registration complete. zo 18:46 [facility] Payment Agreement was scanned into [employer] and attached to record. zo 19:05 Basic Metabolic Profile Reviewed. pc 19:05 CBC with Diff Reviewed. pc 19:05 Liver Profile Reviewed. pc 19:05 Lipase Reviewed. pc 19:12 Data reviewed: old medical records, vital signs, nurses notes, lab test results. Test pc interpretation: LAB - all labs as ordered have been reviewed, interpreted and considered in the overall management of the clinical presentation;. The patient has been re-examined and re-evaluated. The clinical presentation did not require any ED treatment or interventions. as he is tolerating PO fluids, has had a normal bowel movement in the ED and has essentially slept through most of his ED visit, per RN reports. Disposition: The historical points, examination findings, and any diagnostic results supporting the provided diagnosis, were discussed with the patient or legal guardian. The need for outpatient follow up with the provider listed on their discharge instructions was discussed. They were encouraged to return to [facility], or the nearest ED, if symptoms worsen/persist, or for any other questions/concerns. 06/03 03:53 T-Sheet-- Draft Copy was scanned into [employer] and attached to record. hs2 03:53 Undo -Financial registration. hs2 03:53 Financial registration complete. hs2 Administered Medications: 06/02 19:12 CANCELLED (Other Intervention Used): NS 0.9% 1000 ml IV at bolus once pc Signatures: Dispatcher [employer] Kendrick Hernandez MD MD pc Michelson, Staci, RN RN srm Newman, Jill New, RN RN jan Olin, Zoeann zo Sullivan, Jennifer, RN RN jsSara Jeronimo MD MD Adelina Chowdhury, Reg Reg hs2 The chart was reviewed and I authenticate all verbal orders and agree with the evaluation and treatment provided.Corrections: (The following items were deleted from the chart) 19:12 19:07 NS 0.9% 1000 ml IV at bolus once ordered. ben contreras Attachments: 18:46 [facility] Payment Agreement zo 06/03 03:53 T-Sheet-- Draft Copy hs2 Chart Complete MTDD
== END 2016-06-02 19:59 | disposition home or self-care (01) ==
LOC: M ED 15:14
DX: G89.29 Other chronic pain (principal); R10.9 Unspecified abdominal pain; G35 Multiple sclerosis; Z87.440 Personal history of urinary (tract) infections; Z87.891 Personal history of nicotine dependence; Z79.899 Other long term (current) drug therapy; Z88.8 Allergy status to other drugs, medicaments and biological substances; Z91.040 Latex allergy status

== ENCOUNTER 2016-07-05 17:58 | Emergency (ER) | payer MEDICARE, MEDICAID ==
[~2016-07-05 17:58] MED LIST changes: +OXYC-517 PO; -OXYCO5TA PO
[2016-07-05] MEDS ORDERED: LACTULOSE 20 GM/30 ML SYRUP UD As Ordered ONE (19:21)
[2016-07-05] MEDS ORDERED: MAGNESIUM CITRATE 300 ML BTL As Ordered ONE (21:23)
--- NOTE | 2016-07-05 23:06 | EDDOCDS ---
Physician Documentation [facility] Name: Seth Faith Age: 36 yrs Sex: Male : 1980 Arrival Date: 07/05/2016 Time: 17:58 Bed 19 Private MD: Ernie Diane Disposition: 07/05 22:38 Critical Care: Critical care not applicable. le Disposition: 07/05/16 22:33 Discharged to Home/Self Care. Impression: Constipation. - Condition is Stable. - Discharge Instructions: Constipation, Adult, High-Fiber Diet. - Prescriptions for Lactulose 10 gram/15 mL Oral Solution - take 30 milliliters by ORAL route every 4-6 hours Until large bowel movement achieved; 300 milliliter. - Medication Reconciliation, Local Pharmacy Hours form. - Follow up: Ernie Diane; When: Call to arrange an appointment; Reason: Recheck today's complaints, Continuance of care. - Problem is an acute exacerbation. - Symptoms have improved. - Notes: Keep hydrated Return to the ED for any further concerns Historical: - Allergies: Latex (Rash); muscle relaxers (makes spasms worse); - Home Meds: 1. Ambien 5 mg Oral tab 1 tab as needed 2. diazepam 10 mg Oral tab 1 tab TID, has been out for a few weeks 3. gabapentin 300 mg Oral tab 2 tab three times a day (Last dose: 07/05/2016 12:00) 4. Keppra 750 mg Oral tab 1 tab daily 5. oxycodone 30 mg Oral tab 1 tab 4-5 times per day (Last dose: 07/05/2016 15:00) 6. ProAir HFA inhalation as needed - PMHx: Multiple Sclerosis; UTI; - PSHx: none; - Social history: Smoking status: Patient states former smoker of tobacco. Patient uses street drugs, marijuana, No barriers to communication noted, The patient speaks fluent [place], Speaks appropriately for age. - Family history: Not pertinent. - : The pt / caregiver states he / she is not on anticoagulants. Home medication list is obtained from the patient, [employer] import data. - Exposure Risk Screening:: None identified. Vital Signs: 18:13 BP 130 / 57; Pulse 72; Resp 20; Temp 97.8; Pulse Ox 96% on R/A; Pain 9/10; ld5 23:03 BP 116 / 71 LA Supine (auto/reg); Pulse 72 MON; Resp 18 S; Temp 98.0(O); Pulse Ox 100% cln on R/A; Pain 8/10; MDM: 18:36 Abdomen, Flat\E\Upright,PA Chest Ordered. EDMS 19:16 Enema - [place] ordered. le 19:16 Lactulose Liquid 30 ml PO once ordered. le 21:03 Magnesium Citrate Liquid 300 ml PO once ordered. le 22:55 Financial registration complete. gjb Administered Medications: 19:26 Drug: Lactulose 30 ml [lactulose 20 gram/30 mL oral solution (30 mL)] Route: PO; jf3 21:33 Follow up: Response: No Adverse Reaction jf3 21:28 Drug: Magnesium Citrate 300 ml [magnesium citrate oral solution (300 mL)] Route: PO; jf3 22:51 Follow up: Response: No Adverse Reaction jf3 Signatures: Dispatcher [employer] EDMS Rosie Cardona, Sena Locke RN RN ld5 Kyrie Ramirez RN RN jf3 Meredith Borrego DORA
--- NOTE | 2016-07-05 23:06 | EDDOCDS ---
Nurse's Notes [facility] Name: Seth Faith Age: 36 yrs Sex: Male : 1980 Arrival Date: 07/05/2016 Time: 17:58 Bed 19 Private MD: Ernie Diane Diagnosis: Constipation Presentation: 07/05 18:13 Presenting complaint: Patient states: Generalized body pain starting 4 days ago. Home ld5 meds are not working. Denies nausea/vomiting. Reports constipation. Adult Sepsis Screening: The patient does not have new or worsening altered mentation. Patient's respiratory rate is less than 22. Systolic blood pressure is greater than 100. Patient has a qSOFA score of 0- Negative Sepsis Screen. Status: Patient is not a director of child welfare services or dependent. Transition of care: patient was not received from another setting of care. 18:13 Method Of Arrival: Ambulance ld5 18:13 Acuity: ROBYN Level 3 ld5 18:20 Suicide/Homicide risk assessment- the patient denies having any suicidal and/or ld5 homicidal ideations and does not present with any other emotional, behavioral or mental health complaints. Triage Assessment: 18:17 General: Appears in no apparent distress. Pain: Location: body Pain currently is 9 out ld5 of 10 on a pain scale. At worst was 10 out of 10 on a pain scale. HIV screening NA for this visit Offered previously. Respiratory: Airway is patent Respiratory effort is even, unlabored. GI: Reports constipation. : Coburn in place to gravity drainage. Historical: - Allergies: Latex (Rash); muscle relaxers (makes spasms worse); - Home Meds: 1. Ambien 5 mg Oral tab 1 tab as needed 2. diazepam 10 mg Oral tab 1 tab TID, has been out for a few weeks 3. gabapentin 300 mg Oral tab 2 tab three times a day (Last dose: 07/05/2016 12:00) 4. Keppra 750 mg Oral tab 1 tab daily 5. oxycodone 30 mg Oral tab 1 tab 4-5 times per day (Last dose: 07/05/2016 15:00) 6. ProAir HFA inhalation as needed - PMHx: Multiple Sclerosis; UTI; - PSHx: none; - Social history: Smoking status: Patient states former smoker of tobacco. Patient uses street drugs, marijuana, No barriers to communication noted, The patient speaks fluent Belgian, Speaks appropriately for age. - Family history: Not pertinent. - : The pt / caregiver states he / she is not on anticoagulants. Home medication list is obtained from the patient, [employer] import data. - Exposure Risk Screening:: None identified. Screenin:22 Screening information is obtained from the patient, prior medical records. Fall risk: ld5 At risk due to immobility. Assistance ADL's: Requires assistance with meal preparation, this assistance is provided by family members, housework, assistance is provided by family members. Abuse/DV Screen: The patient / caregiver reports he/she is: not in a situation that causes fear, pain or injury. Nutritional screening: The patient reports a change in bowel habits, constipation, The patient reports last bowel movement was 3 days ago. Advance Directives: There is no active DNR order. home support is adequate. Assessment: 18:51 General: Appears in no apparent distress, uncomfortable, Behavior is cooperative. Pain: jf3 Location: abdomen Pain currently is 9 out of 10 on a pain scale. Neurological: Level of Consciousness is awake, alert, Oriented to person, place, time. Cardiovascular: Capillary refill < 3 seconds Heart tones S1 S2 present Chest pain is denied. Respiratory: Airway is patent Respiratory effort is even, unlabored, Respiratory pattern is regular, symmetrical, Breath sounds are clear bilaterally. Denies shortness of breath. GI: Abdomen is flat, non- distended Bowel sounds present X 4 quads. Abd is soft and non tender X 4 quads. Derm: Skin is normal. 20:30 General: Appears in no apparent distress, Behavior is cooperative, Tap water enema jf3 instilled. Pt had copious amounts of hard stool at rectum that he was unable to pass without assistance. Pt states he is unsure if he feels better yet. Provider aware. Will continue to monitor. 21:31 General: Appears in no apparent distress, Behavior is cooperative, tap water enema jf3 instilled again. No stool visualized at rectum. Pt states pain and relief are intermittently coming and going. Respirations easy and unlabored. Call light in reach. Will continue to monitor. 22:36 General: Appears in no apparent distress, comfortable, Behavior is cooperative, Pt jf3 states he doesn't feel the urge to evacuate but does feel slight relief. moderate amount of stool dis-impacted once more. Provider aware. respirations easy and unlabored. Call light in reach. 22:51 Neurological: Level of Consciousness is awake, alert, Oriented to person, place, time. jf3 Cardiovascular: Capillary refill < 3 seconds. Respiratory: Airway is patent Respiratory effort is even, unlabored, Respiratory pattern is regular, symmetrical. Derm: Skin is normal. Vital Signs: 18:13 BP 130 / 57; Pulse 72; Resp 20; Temp 97.8; Pulse Ox 96% on R/A; Pain 9/10; ld5 23:03 BP 116 / 71 LA Supine (auto/reg); Pulse 72 MON; Resp 18 S; Temp 98.0(O); Pulse Ox 100% cln on R/A; Pain 8/10; Vitals: 18:11 Log In Time N/A - ambulance arrival. ld5 ED Course: 18:00 Patient visited by Xenia Lopez PCA. ar3 18:00 Ernie Diane is Private Physician. ar3 18:00 Patient moved to Waiting ar3 18:00 Patient moved to 19 ar3 18:14 Triage Initiated ld5 18:24 Patient visited by Sena Palomino RN. ld5 18:34 [facility] le 18:51 The patient / caregiver is instructed regarding the plan of care and ED course. jf3 18:52 Patient visited by Kyrie Ramirez RN. jf3 18:55 Patient visited by Rosie Cardona FNP. le 18:55 Patient visited by Rosie Cardona FNP. le 19:28 Patient visited by Kyrie Ramirez RN. jf3 20:31 Patient visited by Stephanie Singer PCA. alvaro 21:33 Patient visited by Kyrie Ramirez RN. jf3 22:32 Ernie Diane is Referral Physician. le 22:51 No IV's were initiated during this patient's visit. No procedures done that require hasmukh3 assistance. 23:05 Patient visited by Feli Montes PCA. cln Administered Medications: 19:26 Drug: Lactulose 30 ml [lactulose 20 gram/30 mL oral solution (30 mL)] Route: PO; jf3 21:33 Follow up: Response: No Adverse Reaction jf3 21:28 Drug: Magnesium Citrate 300 ml [magnesium citrate oral solution (300 mL)] Route: PO; jf3 22:51 Follow up: Response: No Adverse Reaction jf3 Order Results: There are currently no results for this order. Outcome: 22:33 Discharge ordered by Provider. le 23:05 Discharge Assessment: Patient awake, alert and oriented x 3. No cognitive and/or jf3 functional deficits noted. Patient verbalized understanding of disposition instructions. patient administered narcotics - no. The following High Risk Discharge criteria are identified: None. Discharged to home via ambulance. Condition: good. Discharge instructions given to patient, Instructed on discharge instructions, follow up and referral plans. medication usage, Demonstrated understanding of instructions, medications, Pt was receptive of discharge instructions/ teaching. No special radiology studies were completed. Property :Personal belongings accompany Pt. 23:05 Patient left the ED. jf3 Signatures: Rosie Cardona, GARAGE HAND GARAGE HAND Xenia Zepeda, IT ARCHITECT IT ARCHITECT ar3 Sena Palomino,RN RN ld5 Stephanie Singer, IT ARCHITECT IT ARCHITECT Kyrie Bello,RN RN jf3 Feli Montes, IT ARCHITECT IT ARCHITECT cln Corrections: (The following items were deleted from the chart) 18:20 18:13 Presenting complaint: Patient states: Generalized body pain starting 4 days ago. ld5 Home meds are not working. Pt denies nausea/vomiting but reports very dry mouth ld5 18:20 18:13 Acuity: ROBYN Level 4 ld5 ld5 MTDD
--- NOTE | 2016-07-06 08:36 | REP ---
ABDOMEN SERIES: Four views. HISTORY: Abdomen pain. Comparison study May 27, 2016. FINDINGS: AP chest x-ray shows increased interstitial markings in the right apex consistent with pleuroparenchymal scarring. This is unchanged from prior radiographs. The lungs are otherwise clear. Pleural angles are sharp. Cardiomediastinal silhouette is unremarkable. Supine and cross-table lateral views of the abdomen show a Coburn catheter in the bladder and a constipation pattern with formed stool filling and mildly dilating the rectum. There is formed stool in the remainder the colon without large or small bowel dilation elsewhere. There is some diffuse osteopenia. No evidence of free air. No significant air fluid level seen. IMPRESSION: Coburn catheter in the urinary bladder. Linear fibrosis in the right lung apex. Obstipation pattern in the bowel gas. Signed by Jesus Garcia MD 07/06/2016 11:02 A
--- NOTE | 2016-07-08 00:06 | EDDOCDS ---
Physician Documentation [facility] Name: Seth Faith Age: 36 yrs Sex: Male : 1980 Arrival Date: 07/05/2016 Time: 17:58 Bed 19 Private MD: Ernie Diane Disposition: 07/05 22:38 Critical Care: Critical care not applicable. le Disposition: 07/05/16 22:33 Discharged to Home/Self Care. Impression: Constipation. - Condition is Stable. - Discharge Instructions: Constipation, Adult, High-Fiber Diet. - Prescriptions for Lactulose 10 gram/15 mL Oral Solution - take 30 milliliters by ORAL route every 4-6 hours Until large bowel movement achieved; 300 milliliter. - Medication Reconciliation, Local Pharmacy Hours form. - Follow up: Ernie Diane; When: Call to arrange an appointment; Reason: Recheck today's complaints, Continuance of care. - Problem is an acute exacerbation. - Symptoms have improved. - Notes: Keep hydrated Return to the ED for any further concerns Historical: - Allergies: Latex (Rash); muscle relaxers (makes spasms worse); - Home Meds: 1. Ambien 5 mg Oral tab 1 tab as needed 2. diazepam 10 mg Oral tab 1 tab TID, has been out for a few weeks 3. gabapentin 300 mg Oral tab 2 tab three times a day (Last dose: 07/05/2016 12:00) 4. Keppra 750 mg Oral tab 1 tab daily 5. oxycodone 30 mg Oral tab 1 tab 4-5 times per day (Last dose: 07/05/2016 15:00) 6. ProAir HFA inhalation as needed - PMHx: Multiple Sclerosis; UTI; - PSHx: none; - Social history: Smoking status: Patient states former smoker of tobacco. Patient uses street drugs, marijuana, No barriers to communication noted, The patient speaks fluent Ethiopian, Speaks appropriately for age. - Family history: Not pertinent. - : The pt / caregiver states he / she is not on anticoagulants. Home medication list is obtained from the patient, [employer] import data. - Exposure Risk Screening:: None identified. Vital Signs: 18:13 BP 130 / 57; Pulse 72; Resp 20; Temp 97.8; Pulse Ox 96% on R/A; Pain 9/10; ld5 23:03 BP 116 / 71 LA Supine (auto/reg); Pulse 72 MON; Resp 18 S; Temp 98.0(O); Pulse Ox 100% cln on R/A; Pain 8/10; MDM: 18:36 Abdomen, Flat\E\Upright,PA Chest Ordered. EDMS 19:16 Enema - Tapwater ordered. le 19:16 Lactulose Liquid 30 ml PO once ordered. le 21:03 Magnesium Citrate Liquid 300 ml PO once ordered. le 22:55 Financial registration complete[address] [facility] : [facility] Payment Agreement was scanned into [employer] and attached to record. [facility] 07/06 10:32 T-Sheet-- Draft Copy was scanned into [employer] and attached to record. gb Administered Medications: 07/05 19:26 Drug: Lactulose 30 ml [lactulose 20 gram/30 mL oral solution (30 mL)] Route: PO; jf3 21:33 Follow up: Response: No Adverse Reaction jf3 21:28 Drug: Magnesium Citrate 300 ml [magnesium citrate oral solution (300 mL)] Route: PO; jf3 22:51 Follow up: Response: No Adverse Reaction jf3 Signatures: Dispatcher [employer] EDMS Khushboo Schrader, Reg Reg gb Rosie Cardona, Sena LockeRN RN ld5 Kyrie Ramirez,RN RN jf3 Meredith Borrego The chart was reviewed and I authenticate all verbal orders and agree with the evaluation and treatment provided.Attachments: : [facility] Payment Agreement [facility] 07/06 10:32 T-Sheet-- Draft Copy gb Chart Complete MTDD
--- NOTE | 2016-07-08 00:06 | EDDOCDS ---
Nurse's Notes [facility] Name: Seth Faith Age: 36 yrs Sex: Male : 1980 Arrival Date: 07/05/2016 Time: 17:58 Bed 19 Private MD: Ernie Diane Diagnosis: Constipation Presentation: 07/05 18:13 Presenting complaint: Patient states: Generalized body pain starting 4 days ago. Home ld5 meds are not working. Denies nausea/vomiting. Reports constipation. Adult Sepsis Screening: The patient does not have new or worsening altered mentation. Patient's respiratory rate is less than 22. Systolic blood pressure is greater than 100. Patient has a qSOFA score of 0- Negative Sepsis Screen. Status: Patient is not a family service aide or dependent. Transition of care: patient was not received from another setting of care. 18:13 Method Of Arrival: Ambulance ld5 18:13 Acuity: ROBYN Level 3 ld5 18:20 Suicide/Homicide risk assessment- the patient denies having any suicidal and/or ld5 homicidal ideations and does not present with any other emotional, behavioral or mental health complaints. Triage Assessment: 18:17 General: Appears in no apparent distress. Pain: Location: body Pain currently is 9 out ld5 of 10 on a pain scale. At worst was 10 out of 10 on a pain scale. HIV screening NA for this visit Offered previously. Respiratory: Airway is patent Respiratory effort is even, unlabored. GI: Reports constipation. : Coburn in place to gravity drainage. Historical: - Allergies: Latex (Rash); muscle relaxers (makes spasms worse); - Home Meds: 1. Ambien 5 mg Oral tab 1 tab as needed 2. diazepam 10 mg Oral tab 1 tab TID, has been out for a few weeks 3. gabapentin 300 mg Oral tab 2 tab three times a day (Last dose: 07/05/2016 12:00) 4. Keppra 750 mg Oral tab 1 tab daily 5. oxycodone 30 mg Oral tab 1 tab 4-5 times per day (Last dose: 07/05/2016 15:00) 6. ProAir HFA inhalation as needed - PMHx: Multiple Sclerosis; UTI; - PSHx: none; - Social history: Smoking status: Patient states former smoker of tobacco. Patient uses street drugs, marijuana, No barriers to communication noted, The patient speaks fluent French, Speaks appropriately for age. - Family history: Not pertinent. - : The pt / caregiver states he / she is not on anticoagulants. Home medication list is obtained from the patient, [employer] import data. - Exposure Risk Screening:: None identified. Screenin:22 Screening information is obtained from the patient, prior medical records. Fall risk: ld5 At risk due to immobility. Assistance ADL's: Requires assistance with meal preparation, this assistance is provided by family members, housework, assistance is provided by family members. Abuse/DV Screen: The patient / caregiver reports he/she is: not in a situation that causes fear, pain or injury. Nutritional screening: The patient reports a change in bowel habits, constipation, The patient reports last bowel movement was 3 days ago. Advance Directives: There is no active DNR order. home support is adequate. Assessment: 18:51 General: Appears in no apparent distress, uncomfortable, Behavior is cooperative. Pain: jf3 Location: abdomen Pain currently is 9 out of 10 on a pain scale. Neurological: Level of Consciousness is awake, alert, Oriented to person, place, time. Cardiovascular: Capillary refill < 3 seconds Heart tones S1 S2 present Chest pain is denied. Respiratory: Airway is patent Respiratory effort is even, unlabored, Respiratory pattern is regular, symmetrical, Breath sounds are clear bilaterally. Denies shortness of breath. GI: Abdomen is flat, non- distended Bowel sounds present X 4 quads. Abd is soft and non tender X 4 quads. Derm: Skin is normal. 20:30 General: Appears in no apparent distress, Behavior is cooperative, Tap water enema jf3 instilled. Pt had copious amounts of hard stool at rectum that he was unable to pass without assistance. Pt states he is unsure if he feels better yet. Provider aware. Will continue to monitor. 21:31 General: Appears in no apparent distress, Behavior is cooperative, tap water enema jf3 instilled again. No stool visualized at rectum. Pt states pain and relief are intermittently coming and going. Respirations easy and unlabored. Call light in reach. Will continue to monitor. 22:36 General: Appears in no apparent distress, comfortable, Behavior is cooperative, Pt jf3 states he doesn't feel the urge to evacuate but does feel slight relief. moderate amount of stool dis-impacted once more. Provider aware. respirations easy and unlabored. Call light in reach. 22:51 Neurological: Level of Consciousness is awake, alert, Oriented to person, place, time. jf3 Cardiovascular: Capillary refill < 3 seconds. Respiratory: Airway is patent Respiratory effort is even, unlabored, Respiratory pattern is regular, symmetrical. Derm: Skin is normal. Vital Signs: 18:13 BP 130 / 57; Pulse 72; Resp 20; Temp 97.8; Pulse Ox 96% on R/A; Pain 9/10; ld5 23:03 BP 116 / 71 LA Supine (auto/reg); Pulse 72 MON; Resp 18 S; Temp 98.0(O); Pulse Ox 100% cln on R/A; Pain 8/10; Vitals: 18:11 Log In Time N/A - ambulance arrival. ld5 ED Course: 18:00 Patient visited by Xenia Lopez PCA. ar3 18:00 Ernie Diane is Private Physician. ar3 18:00 Patient moved to Waiting ar3 18:00 Patient moved to 19 ar3 18:14 Triage Initiated ld5 18:24 Patient visited by Sena Palomino RN. ld5 18:34 Rosie Card[facility]NP [facility] le 18:51 The patient / caregiver is instructed regarding the plan of care and ED course. jf3 18:52 Patient visited by Kyrie Ramirez RN. jf3 18:55 Patient visited by Rosie Cardona FNP. le 18:55 Patient visited by Rosie Cardona FNP. le 19:28 Patient visited by Kyrie Ramirez RN. jf3 20:31 Patient visited by Stephanie Singer PCA. alvaro 21:33 Patient visited by Kyrie Ramirez RN. jf3 22:32 Ernie Diane is Referral Physician. le 22:51 No IV's were initiated during this patient's visit. No procedures done that require jf3 assistance. 23:05 Patient visited by Feli Montes PCA. cln 23:08 [facility] Payment Agreement was scanned into [employer] and attached to record. gjb 07/06 08:46 Abdomen, Flat\E\Upright,PA Chest Returned. EDMS 10:32 T-Sheet-- Draft Copy was scanned into [employer] and attached to record. gb Administered Medications: 07/05 19:26 Drug: Lactulose 30 ml [lactulose 20 gram/30 mL oral solution (30 mL)] Route: PO; jf3 21:33 Follow up: Response: No Adverse Reaction jf3 21:28 Drug: Magnesium Citrate 300 ml [magnesium citrate oral solution (300 mL)] Route: PO; jf3 22:51 Follow up: Response: No Adverse Reaction jf3 Order Results: Radiology Order: Abdomen, Flat\E\Upright,PA Chest Test: Abdomen, Flat\E\Upright,PA Chest REASON FOR EXAMINATION: Abdomen Pain; ABDOMEN SERIES: Four views.; ; HISTORY: Abdomen pain.; ; Comparison study May 27, 2016.; ; FINDINGS: AP chest x-ray shows increased interstitial markings in the right apex; consistent with pleuroparenchymal scarring. This is unchanged from prior; radiographs. The lungs are otherwise clear. Pleural angles are sharp.; Cardiomediastinal silhouette is unremarkable.; ; Supine and cross-table lateral views of the abdomen show a Coburn catheter in the; bladder and a constipation pattern with formed stool filling and mildly dilating; the rectum. There is formed stool in the remainder the colon without large or; small bowel dilation elsewhere. There is some diffuse osteopenia. No evidence; of free air. No significant air fluid level seen.; ; IMPRESSION:; ; Coburn catheter in the urinary bladder. Linear fibrosis in the right lung apex.; Obstipation pattern in the bowel gas.; ; ; Signed by; Jesus Garcia MD 07/06/2016 11:02 A; Outcome: 22:33 Discharge ordered by Provider. le 23:05 Discharge Assessment: Patient awake, alert and oriented x 3. No cognitive and/or jf3 functional deficits noted. Patient verbalized understanding of disposition instructions. patient administered narcotics - no. The following High Risk Discharge criteria are identified: None. Discharged to home via ambulance. Condition: good. Discharge instructions given to patient, Instructed on discharge instructions, follow up and referral plans. medication usage, Demonstrated understanding of instructions, medications, Pt was receptive of discharge instructions/ teaching. No special radiology studies were completed. Property :Personal belongings accompany Pt. 23:05 Patient left the ED. jf3 Signatures: Dispatcher [employer] EDMS Khushboo Schrader, Rosie Underwood, FRANCISCA Zepeda Xenia, ENGAGEMENT MGR ENGAGEMENT MGR ar3 Sena Palomino,RN RN ld5 Stephanie Singer, ENGAGEMENT MGR ENGAGEMENT MGR Kyrie Bello,RN RN jf3 Meredith Borregob Jyoti, Feli, ENGAGEMENT MGR ENGAGEMENT MGR cln Corrections: (The following items were deleted from the chart) 18:13 Presenting complaint: Patient states: Generalized body pain starting 4 days ago. ld5 Home meds are not working. Pt denies nausea/vomiting but reports very dry mouth ld5 : 18:13 Acuity: ROBYN Level 4 ld5 ld5 Chart Complete MTDD
--- NOTE | 2016-07-08 00:06 | EDDOCDS ---
Physician Documentation [facility] Name: Seth Faith Age: 36 yrs Sex: Male : 1980 Arrival Date: 07/05/2016 Time: 17:58 Bed 19 Private MD: Ernie Diane Disposition: 07/05 22:38 Critical Care: Critical care not applicable. le Disposition: 07/05/16 22:33 Discharged to Home/Self Care. Impression: Constipation. - Condition is Stable. - Discharge Instructions: Constipation, Adult, High-Fiber Diet. - Prescriptions for Lactulose 10 gram/15 mL Oral Solution - take 30 milliliters by ORAL route every 4-6 hours Until large bowel movement achieved; 300 milliliter. - Medication Reconciliation, Local Pharmacy Hours form. - Follow up: Ernie Diane; When: Call to arrange an appointment; Reason: Recheck today's complaints, Continuance of care. - Problem is an acute exacerbation. - Symptoms have improved. - Notes: Keep hydrated Return to the ED for any further concerns Historical: - Allergies: Latex (Rash); muscle relaxers (makes spasms worse); - Home Meds: 1. Ambien 5 mg Oral tab 1 tab as needed 2. diazepam 10 mg Oral tab 1 tab TID, has been out for a few weeks 3. gabapentin 300 mg Oral tab 2 tab three times a day (Last dose: 07/05/2016 12:00) 4. Keppra 750 mg Oral tab 1 tab daily 5. oxycodone 30 mg Oral tab 1 tab 4-5 times per day (Last dose: 07/05/2016 15:00) 6. ProAir HFA inhalation as needed - PMHx: Multiple Sclerosis; UTI; - PSHx: none; - Social history: Smoking status: Patient states former smoker of tobacco. Patient uses street drugs, marijuana, No barriers to communication noted, The patient speaks fluent Paraguayan, Speaks appropriately for age. - Family history: Not pertinent. - : The pt / caregiver states he / she is not on anticoagulants. Home medication list is obtained from the patient, [employer] import data. - Exposure Risk Screening:: None identified. Vital Signs: 18:13 BP 130 / 57; Pulse 72; Resp 20; Temp 97.8; Pulse Ox 96% on R/A; Pain 9/10; ld5 23:03 BP 116 / 71 LA Supine (auto/reg); Pulse 72 MON; Resp 18 S; Temp 98.0(O); Pulse Ox 100% cln on R/A; Pain 8/10; MDM: 18:36 Abdomen, Flat\E\Upright,PA Chest Ordered. EDMS 19:16 Enema - Tapwater ordered. le 19:16 Lactulose Liquid 30 ml PO once ordered. le 21:03 Magnesium Citrate Liquid 300 ml PO once ordered. le 22:55 Financial registration complete. [facility] : [facility] Payment Agreement was scanned into [employer] and attached to record. [facility] 07/06 10:32 T-Sheet-- Draft Copy was scanned into [employer] and attached to record. gb Administered Medications: 07/05 19:26 Drug: Lactulose 30 ml [lactulose 20 gram/30 mL oral solution (30 mL)] Route: PO; jf3 21:33 Follow up: Response: No Adverse Reaction jf3 21:28 Drug: Magnesium Citrate 300 ml [magnesium citrate oral solution (300 mL)] Route: PO; jf3 22:51 Follow up: Response: No Adverse Reaction jf3 Signatures: Dispatcher [employer] EDMS Khushboo Schrader, Reg Reg gb Rosie Cardona, Sena LockeRN RN ld5 Kyrie Ramirez,RN RN jf3 Meredith Borrego The chart was reviewed and I authenticate all verbal orders and agree with the evaluation and treatment provided.Attachments: : [facility] Payment Agreement [facility] 07/06 10:32 T-Sheet-- Draft Copy gb Chart Complete MTDD
== END 2016-07-05 23:05 | disposition home or self-care (01) ==
LOC: M ED 17:58
DX: K59.00 Constipation, unspecified (principal); J98.4 Other disorders of lung; G35 Multiple sclerosis; Z87.440 Personal history of urinary (tract) infections; Z96.0 Presence of urogenital implants; Z87.891 Personal history of nicotine dependence; Z79.891 Long term (current) use of opiate analgesic; Z79.899 Other long term (current) drug therapy; Z91.040 Latex allergy status; Z88.8 Allergy status to other drugs, medicaments and biological substances

== ENCOUNTER 2016-07-11 14:38 | Emergency (ER) | payer MEDICARE, MEDICAID ==
--- NOTE | 2016-07-11 15:34 | REP ---
The supine abdomen two views: Comparison is 2016. There is no bowel obstruction. The bowel gas pattern is normal. The large volume of fecal residue throughout the colon on the previous study has decreased in volume. However, a large volume of fecal residue remains. There is an electronic device or instrument superimposed over the pelvis as previously. Skeletal structures and soft tissues otherwise are unremarkable. Signed by Alejandro Altman MD 07/11/2016 03:26 P
--- NOTE | 2016-07-11 18:21 | EDDOCDS ---
Nurse's Notes [facility] Name: Seth Faith Age: 36 yrs Sex: Male : 1980 Arrival Date: 07/11/2016 Time: 14:38 Bed 12 Private MD: Ernie Diane Diagnosis: Constipation Presentation: 07/11 14:48 Presenting complaint: Patient states: "Last time I was here I was disimpacted. It feels mb9 like everything has just moved down and it feels like I'm gonna poop". pt reports last BM was 4 days ago when he was last here. Risk factors: the patient reports. Suicide/Homicide risk assessment- the patient denies having any suicidal and/or homicidal ideations and does not present with any other emotional, behavioral or mental health complaints. Status: Patient is not a business services vice president or dependent. Transition of care: patient was not received from another setting of care. 14:48 Acuity: ROBYN Level 4 mb9 14:48 Method Of Arrival: Ambulance mb9 16:20 Adult Sepsis Screening: The patient does not have new or worsening altered mentation. kc3 Patient's respiratory rate is less than 22. Systolic blood pressure is greater than 100. Patient has a qSOFA score of 0- Negative Sepsis Screen. Triage Assessment: 14:54 General: Appears in no apparent distress, Behavior is appropriate for age, cooperative. mb9 Pain: Location: abdomen Pain currently is 8 out of 10 on a pain scale. HIV screening NA for this visit Offered previously. The patient is triaged at the bedside. See Assessment in Nurses Notes section of ED record. Respiratory: Airway is patent Respiratory effort is even, unlabored. GI: Abdomen is flat, non- distended Reports constipation. Historical: - Allergies: Latex (Rash); muscle relaxers (makes spasms worse); - Home Meds: 1. Ambien 5 mg Oral tab 1 tab as needed 2. diazepam 10 mg Oral tab 1 tab TID, has been out for a few weeks 3. gabapentin 300 mg Oral tab 2 tab three times a day 4. Keppra 750 mg Oral tab 1 tab daily 5. oxycodone 30 mg Oral tab 1 tab 4-5 times per day 6. ProAir HFA inhalation as needed 7. lactulose 10 gram/15 mL (15 mL) Oral soln 30 mL 4 times per day - PMHx: Multiple Sclerosis; UTI; - PSHx: none; - Family history: Not pertinent. - Social history: Smoking status: No barriers to communication noted, The patient speaks fluent Urdu, Speaks appropriately for age. - : The pt / caregiver states he / she is not on anticoagulants. Home medication list is obtained from the patient. - Exposure Risk Screening:: None identified. Screenin:20 Screening information is obtained from the patient. Fall risk: At risk due to kc3 immobility, The following interventions are performed due to a positive Fall Risk Screen: Fall Risk is added to Special Handling on the patient Summary Screen. A Fall Risk Bracelet was applied to the patient. Side Rails are placed in the up position. A Call Truong is given with instruction to call for help when getting out of bed. Fall Alert bracelet is placed on the patient. Assistance ADL's: Requires assistance with meal preparation, this assistance is provided by family members, bathing, assistance is provided by family members, dressing, assistance is provided by family members, toileting, assistance is provided by family members, ambulation, assistance is provided by family members, housework, assistance is provided by family members, medication administration, assistance is provided by family members. Abuse/DV Screen: The patient / caregiver reports he/she is: not in a situation that causes fear, pain or injury. Nutritional screening: No deficits noted. Advance Directives: Currently, there is no health care proxy. home support is adequate. Assessment: 16:18 General: Appears in no apparent distress, comfortable, Behavior is appropriate for age, kc3 cooperative. Neurological: Level of Consciousness is awake, alert, obeys commands. Respiratory: Respiratory effort is even, unlabored. GI: Abdomen is flat, Bowel sounds present X 4 quads. Abd is soft and non tender. Derm: Skin is pink, warm & dry. 17:27 General: Appears in no apparent distress, comfortable, Behavior is appropriate for age, kc3 cooperative, Enema given a second time. Pt remains on bedpan. . Neurological: Level of Consciousness is awake, alert, obeys commands. Respiratory: Respiratory effort is even, unlabored. Derm: Skin is normal. Vital Signs: 14:47 BP 119 / 74 (auto/); mb9 14:49 Pulse 78; Resp 17; Pulse Ox 98% ; Pain 8/10; mb9 18:20 BP 122 / 78; Pulse 68; Resp 18; Temp 97.8; Pulse Ox 98% ; Pain 7/10; [facility] Vitals: 14:49 Log In Time N/A - ambulance arrival. mb9 ED Course: 14:39 Patient visited by Nichole Reynolds, Computer Typesetter Keyliner. lbd 14:39 Patient moved to Waiting lbd 14:40 Ernie Diane is Private Physician. lbd 14:41 Heidy Bass,RN is Primary Nurse. lbd 14:41 Rob Florentino FNP is [facility]. ke 14:41 Patient visited by Rob Florentino FNP. ke 14:41 Patient visited by Rob Florentino FNP. ke 14:41 Patient moved to 12 lbd 14:51 Triage Initiated mb9 15:07 Patient visited by Rob Florentino FNP. ke 15:38 Patient visited by Rob Florentino FNP. ke 15:52 [facility] Payment Agreement was scanned into [employer] and attached to record. gjb 15:52 KUB Returned. EDMS 16:07 Patient visited by Rob Florentino FNP. ke 16:20 Tapwater enema given. Patient tolerated well. kc3 16:21 The patient / caregiver is instructed regarding the plan of care and ED course. kc3 16:40 Patient visited by Rob Florentino FNP. ke 16:43 Ernie Diane is Referral Physician. ke 17:28 No IV's were initiated during this patient's visit. No procedures done that require kc3 assistance. Order Results: Radiology Order: KUB Test: KUB REASON FOR EXAMINATION: constipation; The supine abdomen two views:; ; Comparison is 2016.; ; There is no bowel obstruction. The bowel gas pattern is normal.; ; The large volume of fecal residue throughout the colon on the previous study has; decreased in volume. However, a large volume of fecal residue remains.; ; There is an electronic device or instrument superimposed over the pelvis as; previously.; ; Skeletal structures and soft tissues otherwise are unremarkable.; ; ; Signed by; Alejandro Altman MD 07/11/2016 03:26 P; Outcome: 16:43 Discharge ordered by Provider. ke 17:28 No special radiology studies were completed. kc3 18:21 Patient left the ED. [facility] Signatures: Dispatcher [employer] EDMS Nichole Reynolds, Computer Typesetter Keyliner Unit lbd Rob Florentino, PANEL FITTER PANEL FITTER Geno Bolden,RN RN [place] Max IsaacsRN RN mb9 Heidy Bass,RN RN kc3 Meredith Borrego DORA
--- NOTE | 2016-07-11 18:21 | EDDOCDS ---
Physician Documentation [facility] Name: Seth Faith Age: 36 yrs Sex: Male : 1980 Arrival Date: 07/11/2016 Time: 14:38 Bed 12 Private MD: Ernie Diane Disposition: 07/11/16 16:43 Discharged to Home/Self Care. Impression: Constipation. - Condition is Stable. - Discharge Instructions: Constipation, Adult. - Prescriptions for Lactulose 10 gram/15 mL Oral Solution - take 30 milliliter by ORAL route once daily; 300 milliliter. - Medication Reconciliation, Local Pharmacy Hours form. - Follow up: Ernie Diane; When: As needed; Reason: Continuance of care. - Problem is an acute exacerbation. - Symptoms have improved. Historical: - Allergies: Latex (Rash); muscle relaxers (makes spasms worse); - Home Meds: 1. Ambien 5 mg Oral tab 1 tab as needed 2. diazepam 10 mg Oral tab 1 tab TID, has been out for a few weeks 3. gabapentin 300 mg Oral tab 2 tab three times a day 4. Keppra 750 mg Oral tab 1 tab daily 5. oxycodone 30 mg Oral tab 1 tab 4-5 times per day 6. ProAir HFA inhalation as needed 7. lactulose 10 gram/15 mL (15 mL) Oral soln 30 mL 4 times per day - PMHx: Multiple Sclerosis; UTI; - PSHx: none; - Family history: Not pertinent. - Social history: Smoking status: No barriers to communication noted, The patient speaks fluent [place], Speaks appropriately for age. - : The pt / caregiver states he / she is not on anticoagulants. Home medication list is obtained from the patient. - Exposure Risk Screening:: None identified. Vital Signs: 07/11 14:47 BP 119 / 74 (auto/); mb9 14:49 Pulse 78; Resp 17; Pulse Ox 98% ; Pain 8/10; mb9 18:20 BP 122 / 78; Pulse 68; Resp 18; Temp 97.8; Pulse Ox 98% ; Pain 7/10; cjh MDM: 14:47 KUB Ordered. EDMS 15:25 Enema - Tapwater ordered. ke 15:49 Financial registration complete. gjb 15:52 [facility] Payment Agreement was scanned into [email or web address] and attached to record. gjb Signatures: Dispatcher [employer] EDRob Carvalho, Geno MarcumRN RN cjh Max IsaacsRN RN mb9 Heidy Bass RN RN kc3 Meredith Borrego The chart was reviewed and I authenticate all verbal orders and agree with the evaluation and treatment provided.Attachments: 15:52 [facility] Payment Agreement glenn MTDD
--- NOTE | 2016-07-13 19:21 | EDDOCDS ---
Physician Documentation [facility] Name: Seth Faith Age: 36 yrs Sex: Male : 1980 Arrival Date: 07/11/2016 Time: 14:38 Bed 12 Private MD: Ernie Diane Disposition: 07/11/16 16:43 Discharged to Home/Self Care. Impression: Constipation. - Condition is Stable. - Discharge Instructions: Constipation, Adult. - Prescriptions for Lactulose 10 gram/15 mL Oral Solution - take 30 milliliter by ORAL route once daily; 300 milliliter. - Medication Reconciliation, Local Pharmacy Hours form. - Follow up: Ernie Diane; When: As needed; Reason: Continuance of care. - Problem is an acute exacerbation. - Symptoms have improved. Historical: - Allergies: Latex (Rash); muscle relaxers (makes spasms worse); - Home Meds: 1. Ambien 5 mg Oral tab 1 tab as needed 2. diazepam 10 mg Oral tab 1 tab TID, has been out for a few weeks 3. gabapentin 300 mg Oral tab 2 tab three times a day 4. Keppra 750 mg Oral tab 1 tab daily 5. oxycodone 30 mg Oral tab 1 tab 4-5 times per day 6. ProAir HFA inhalation as needed 7. lactulose 10 gram/15 mL (15 mL) Oral soln 30 mL 4 times per day - PMHx: Multiple Sclerosis; UTI; - PSHx: none; - Family history: Not pertinent. - Social history: Smoking status: No barriers to communication noted, The patient speaks fluent Turkmen, Speaks appropriately for age. - : The pt / caregiver states he / she is not on anticoagulants. Home medication list is obtained from the patient. - Exposure Risk Screening:: None identified. Vital Signs: 07/11 14:47 BP 119 / 74 (auto/); mb9 14:49 Pulse 78; Resp 17; Pulse Ox 98% ; Pain 8/10; mb9 18:20 BP 122 / 78; Pulse 68; Resp 18; Temp 97.8; Pulse Ox 98% ; Pain 7/10; [facility] MDM: 14:47 KUB Ordered. EDMS 15:25 Enema - Tapwater ordered. carmina 15:49 Financial registration complete. gjade 15:52 [facility] Payment Agreement was scanned into [employer] and attached to record. gjb 07/12 10:40 T-Sheet-- Draft Copy was scanned into [employer] and attached to record. gb Signatures: Dispatcher [employer] EDKhushboo Torrez, Reg Reg gb Rob Florentino, BOARD OPERATOR BOARD OPERATOR Geno Bolden,RN RN cj Max IsaacsRN RN mb9 Heidy BassRN RN kc3 Meredith Borrego [facility] The chart was reviewed and I authenticate all verbal orders and agree with the evaluation and treatment provided.Attachments: 07/11 15:52 [facility] Payment Agreement [facility] 07/12 10:40 T-Sheet-- Draft Copy gb Chart Complete MTDD
--- NOTE | 2016-07-13 19:21 | EDDOCDS ---
Physician Documentation [facility] Name: Seth Faith Age: 36 yrs Sex: Male : 1980 Arrival Date: 07/11/2016 Time: 14:38 Bed 12 Private MD: Ernie Diane Disposition: 07/11/16 16:43 Discharged to Home/Self Care. Impression: Constipation. - Condition is Stable. - Discharge Instructions: Constipation, Adult. - Prescriptions for Lactulose 10 gram/15 mL Oral Solution - take 30 milliliter by ORAL route once daily; 300 milliliter. - Medication Reconciliation, Local Pharmacy Hours form. - Follow up: Ernie Diane; When: As needed; Reason: Continuance of care. - Problem is an acute exacerbation. - Symptoms have improved. Historical: - Allergies: Latex (Rash); muscle relaxers (makes spasms worse); - Home Meds: 1. Ambien 5 mg Oral tab 1 tab as needed 2. diazepam 10 mg Oral tab 1 tab TID, has been out for a few weeks 3. gabapentin 300 mg Oral tab 2 tab three times a day 4. Keppra 750 mg Oral tab 1 tab daily 5. oxycodone 30 mg Oral tab 1 tab 4-5 times per day 6. ProAir HFA inhalation as needed 7. lactulose 10 gram/15 mL (15 mL) Oral soln 30 mL 4 times per day - PMHx: Multiple Sclerosis; UTI; - PSHx: none; - Family history: Not pertinent. - Social history: Smoking status: No barriers to communication noted, The patient speaks fluent Mexican, Speaks appropriately for age. - : The pt / caregiver states he / she is not on anticoagulants. Home medication list is obtained from the patient. - Exposure Risk Screening:: None identified. Vital Signs: 07/11 14:47 BP 119 / 74 (auto/); mb9 14:49 Pulse 78; Resp 17; Pulse Ox 98% ; Pain 8/10; mb9 18:20 BP 122 / 78; Pulse 68; Resp 18; Temp 97.8; Pulse Ox 98% ; Pain 7/10; [facility] MDM: 14:47 KUB Ordered. EDMS 15:25 Enema - Tapwater ordered. carmina 15:49 Financial registration complete. gjade 15:52 [facility] Payment Agreement was scanned into [employer] and attached to record. gjb 07/12 10:40 T-Sheet-- Draft Copy was scanned into [employer] and attached to record. gb Signatures: Dispatcher [employer] EDKhushboo Torrez, Reg Reg gb Rob Florentino, CERAMIC TILER CERAMIC TILER Geno Bolden,RN RN cj Max IsaacsRN RN mb9 Heidy BassRN RN kc3 Meredith Borrego [facility] The chart was reviewed and I authenticate all verbal orders and agree with the evaluation and treatment provided.Attachments: 07/11 15:52 [facility] Payment Agreement [facility] 07/12 10:40 T-Sheet-- Draft Copy gb Chart Complete MTDD
--- NOTE | 2016-07-13 19:21 | EDDOCDS ---
Nurse's Notes [facility] Name: Seth Faith Age: 36 yrs Sex: Male : 1980 Arrival Date: 07/11/2016 Time: 14:38 Bed 12 Private MD: Ernie Diane Diagnosis: Constipation Presentation: 07/11 14:48 Presenting complaint: Patient states: "Last time I was here I was disimpacted. It feels mb9 like everything has just moved down and it feels like I'm gonna poop". pt reports last BM was 4 days ago when he was last here. Risk factors: the patient reports. Suicide/Homicide risk assessment- the patient denies having any suicidal and/or homicidal ideations and does not present with any other emotional, behavioral or mental health complaints. Status: Patient is not a extension service specialist in charge or dependent. Transition of care: patient was not received from another setting of care. 14:48 Acuity: ROBYN Level 4 mb9 14:48 Method Of Arrival: Ambulance mb9 16:20 Adult Sepsis Screening: The patient does not have new or worsening altered mentation. kc3 Patient's respiratory rate is less than 22. Systolic blood pressure is greater than 100. Patient has a qSOFA score of 0- Negative Sepsis Screen. Triage Assessment: 14:54 General: Appears in no apparent distress, Behavior is appropriate for age, cooperative. mb9 Pain: Location: abdomen Pain currently is 8 out of 10 on a pain scale. HIV screening NA for this visit Offered previously. The patient is triaged at the bedside. See Assessment in Nurses Notes section of ED record. Respiratory: Airway is patent Respiratory effort is even, unlabored. GI: Abdomen is flat, non- distended Reports constipation. Historical: - Allergies: Latex (Rash); muscle relaxers (makes spasms worse); - Home Meds: 1. Ambien 5 mg Oral tab 1 tab as needed 2. diazepam 10 mg Oral tab 1 tab TID, has been out for a few weeks 3. gabapentin 300 mg Oral tab 2 tab three times a day 4. Keppra 750 mg Oral tab 1 tab daily 5. oxycodone 30 mg Oral tab 1 tab 4-5 times per day 6. ProAir HFA inhalation as needed 7. lactulose 10 gram/15 mL (15 mL) Oral soln 30 mL 4 times per day - PMHx: Multiple Sclerosis; UTI; - PSHx: none; - Family history: Not pertinent. - Social history: Smoking status: No barriers to communication noted, The patient speaks fluent Bulgarian, Speaks appropriately for age. - : The pt / caregiver states he / she is not on anticoagulants. Home medication list is obtained from the patient. - Exposure Risk Screening:: None identified. Screenin:20 Screening information is obtained from the patient. Fall risk: At risk due to kc3 immobility, The following interventions are performed due to a positive Fall Risk Screen: Fall Risk is added to Special Handling on the patient Summary Screen. A Fall Risk Bracelet was applied to the patient. Side Rails are placed in the up position. A Call Truong is given with instruction to call for help when getting out of bed. Fall Alert bracelet is placed on the patient. Assistance ADL's: Requires assistance with meal preparation, this assistance is provided by family members, bathing, assistance is provided by family members, dressing, assistance is provided by family members, toileting, assistance is provided by family members, ambulation, assistance is provided by family members, housework, assistance is provided by family members, medication administration, assistance is provided by family members. Abuse/DV Screen: The patient / caregiver reports he/she is: not in a situation that causes fear, pain or injury. Nutritional screening: No deficits noted. Advance Directives: Currently, there is no health care proxy. home support is adequate. Assessment: 16:18 General: Appears in no apparent distress, comfortable, Behavior is appropriate for age, kc3 cooperative. Neurological: Level of Consciousness is awake, alert, obeys commands. Respiratory: Respiratory effort is even, unlabored. GI: Abdomen is flat, Bowel sounds present X 4 quads. Abd is soft and non tender. Derm: Skin is pink, warm & dry. 17:27 General: Appears in no apparent distress, comfortable, Behavior is appropriate for age, kc3 cooperative, Enema given a second time. Pt remains on bedpan. . Neurological: Level of Consciousness is awake, alert, obeys commands. Respiratory: Respiratory effort is even, unlabored. Derm: Skin is normal. Vital Signs: 14:47 BP 119 / 74 (auto/); mb9 14:49 Pulse 78; Resp 17; Pulse Ox 98% ; Pain 8/10; mb9 18:20 BP 122 / 78; Pulse 68; Resp 18; Temp 97.8; Pulse Ox 98% ; Pain 7/10; h Vitals: 14:49 Log In Time N/A - ambulance arrival. mb9 ED Course: 14:39 Patient visited by Nichole Reynolds, Patternator. lbd 14:39 Patient moved to Waiting lbd 14:40 Ernie Diane is Private Physician. lbd 14:41 Heidy Bass,RN is Primary Nurse. lbd 14:41 [facility]. ke 14:41 Patient visited by Rob Florentino FNP. ke 14:41 Patient visited by Rob Florentino FNP. ke 14:41 Patient moved to 12 lbd 14:51 Triage Initiated mb9 15:07 Patient visited by Rob Florentino FNP. ke 15:38 Patient visited by Rob Florentino FNP. ke 15:52 [facility] Payment Agreement was scanned into [employer] and attached to record. gjb 15:52 KUB Returned. EDMS 16:07 Patient visited by Rob Florentino FNP. ke 16:20 Tapwater enema given. Patient tolerated well. kc3 16:21 The patient / caregiver is instructed regarding the plan of care and ED course. kc3 16:40 Patient visited by Rob Florentino FNP. ke 16:43 Ernie Diane is Referral Physician. ke 17:28 No IV's were initiated during this patient's visit. No procedures done that require kc3 assistance. 07/12 10:40 T-Sheet-- Draft Copy was scanned into [employer] and attached to record. gb Order Results: Radiology Order: KUB Test: KUB REASON FOR EXAMINATION: constipation; The supine abdomen two views:; ; Comparison is 2016.; ; There is no bowel obstruction. The bowel gas pattern is normal.; ; The large volume of fecal residue throughout the colon on the previous study has; decreased in volume. However, a large volume of fecal residue remains.; ; There is an electronic device or instrument superimposed over the pelvis as; previously.; ; Skeletal structures and soft tissues otherwise are unremarkable.; ; ; Signed by; Alejandro Altman MD 07/11/2016 03:26 P; Outcome: 07/11 16:43 Discharge ordered by Provider. ke 17:28 No special radiology studies were completed. antonino 18:21 Patient left the ED. [facility] Signatures: Dispatcher [employer] EDMS Nichole Reynolds, Patternator Unit lbd Khushboo Schrader, Jeremi Reg Rob Zarate, PAINT STRIPPER PAINT STRIPPER Geno Bolden RN RN [facility] Max IsaacsRN RN mb9 Heidy Bass RN RN kc3 Meredith Borrego Chart Complete MTDD
== END 2016-07-11 18:21 | disposition home or self-care (01) ==
LOC: M ED 14:38
DX: K56.41 Fecal impaction (principal); G35 Multiple sclerosis; Z79.891 Long term (current) use of opiate analgesic; Z79.899 Other long term (current) drug therapy; Z88.5 Allergy status to narcotic agent; Z91.040 Latex allergy status

== ENCOUNTER 2016-07-22 17:31 | Emergency (ER) | payer MEDICARE, OTHER ==
--- NOTE | 2016-07-22 22:19 | EDDOCDS ---
Nurse's Notes [facility] Name: Seth Faith Age: 36 yrs Sex: Male : 1980 Arrival Date: 07/22/2016 Time: 17:31 Bed I4 / M4 Private MD: Ernie Diane H. Diagnosis: Fecal impaction;Constipation-chronic Presentation: 07/22 17:39 Presenting complaint: EMS states: called 911 for pain in left side of abdomen. Patient hs1 reported to EMS no bowel movement since he was last here a couple weeks ago. Patient states that he believes his pain is his body "being the way it is". Risk factors: the patient reports not having a history of previous torsion. Adult Sepsis Screening: The patient does not have new or worsening altered mentation. Patient's respiratory rate is less than 22. Systolic blood pressure is greater than 100. Patient has a qSOFA score of 0- Negative Sepsis Screen. Suicide/Homicide risk assessment- the patient denies having any suicidal and/or homicidal ideations and does not present with any other emotional, behavioral or mental health complaints. Status: Patient is not a health services information specialist or dependent. Transition of care: patient was not received from another setting of care. 17:39 Acuity: ROBYN Level 3 hs1 17:39 Method Of Arrival: Ambulance hs1 Triage Assessment: 17:43 General: Appears in no apparent distress, Behavior is appropriate for age, cooperative. hs1 Pain: Location: abdomen Pain currently is 8 out of 10 on a pain scale. HIV screening NA for this visit Offered previously. Neurological: No deficits noted. GI: Abdomen is non- distended. Historical: - Allergies: Latex (Rash); muscle relaxers (makes spasms worse); - Home Meds: 1. Ambien 5 mg Oral tab 1 tab as needed 2. diazepam 10 mg Oral tab 1 tab TID, has been out for a few weeks has been out for past month 3. gabapentin 300 mg Oral tab 2 tab three times a day 4. Keppra 750 mg Oral tab 1 tab daily 5. lactulose 10 gram/15 mL (15 mL) Oral soln 30 mL 4 times per day out of medication 6. oxycodone 30 mg Oral tab 1 tab 4-5 times per day 7. ProAir HFA inhalation as needed - PMHx: Multiple Sclerosis; UTI; - PSHx: none; - Social history: No barriers to communication noted, The patient speaks fluent Tunisian, Speaks appropriately for age, Smoking status: Patient uses tobacco products, current some day smoker. Patient uses street drugs, marijuana. - Family history: Not pertinent. - : The pt / caregiver states he / she is not on anticoagulants. Home medication list is obtained from the patient, Unable to Verify Home Med List with the patient / caregiver. - Exposure Risk Screening:: None identified. Screenin:43 Screening information is obtained from the patient. Fall risk: At risk due to hs1 immobility. Assistance ADL's: requires no assistance with activities of daily living. Abuse/DV Screen: The patient / caregiver reports he/she is: not in a situation that causes fear, pain or injury. Nutritional screening: No deficits noted. Advance Directives: There is no active DNR order. home support is adequate. Assessment: 16:38 General: Appears in no apparent distress. Pain: Location: abdomen. GI: Abdomen is flat, hs1 non- distended Bowel sounds present X 4 quads. Abd is soft X 4 quads Abd is tender to palpation X 4 quads. Derm: Skin is pink, warm & dry. normal. 22:14 General: Appears in no apparent distress, Behavior is. General: Behavior is appropriate kas2 for age, cooperative. Pain: Denies pain. Neurological: Level of Consciousness is awake, alert, Oriented to person, place, time. Cardiovascular: Rhythm is regular. Respiratory: Airway is patent Respiratory effort is even, unlabored, Respiratory pattern is regular, symmetrical. GI: Abdomen is flat, non- distended Bowel sounds present X 4 quads. Abd is soft X 4 quads. Derm: Skin is intact, Skin is dry, Skin is pink, warm & dry. Skin temperature is. Vital Signs: 17:44 BP 130 / 83; Pulse 79; Resp 18; Temp 98.3(O); Pulse Ox 99% on R/A; Weight 58.97 kg; jml1 Height 6 ft. 2 in. (187.96 cm); Pain 8/10; 22:15 BP 133 / 74; Pulse 75; Resp 18; Temp 97.8; Pulse Ox 99% ; ajs 17:44 Body Mass Index 16.69 (58.97 kg, 187.96 cm) [facility] Vitals: 17:43 Log In Time N/A - ambulance arrival. hs1 ED Course: 17:32 Patient visited by Stone Chapa PCA. jrd 17:32 Ernie Diane is Private Physician. jrd 17:32 Patient moved to Waiting jrd 17:33 Patient moved to I4 / M4 jrd 17:38 Patient visited by Katey Pablo RN. hs1 17:40 Triage Initiated hs1 17:43 Patient visited by Katey Pablo RN. hs1 17:44 Patient visited by Laci Kendrick. jml1 18:37 [facility] Payment Agreement was scanned into [employer] and attached to record. zo 18:58 Patient visited by Katey Pablo RN. hs1 19:21 Juan Tobias PA-C is PHCP. cc10 19:22 Blanca Esquivel MD is Attending Physician. cc10 19:22 Patient visited by Juan Tobias PA-C. cc10 19:22 Patient visited by Juan Tobias PA-C. cc10 20:00 Patient visited by Neeta Roberts RN. kas2 20:36 Patient visited by Heidy Bass RN. kc3 20:52 Patient visited by Juan Tobias PA-C. cc10 21:56 Patient visited by Neeta Roberts RN. kas2 22:08 Ernie Diane is Referral Physician. cc10 22:15 Patient visited by Sammie Blevins. ajs 22:16 Patient visited by Neeta Roberts RN. kas2 22:18 The patient / caregiver is instructed regarding the plan of care and ED course. kas2 22:18 No IV's were initiated during this patient's visit. No procedures done that require kas2 assistance. Order Results: There are currently no results for this order. Outcome: 22:08 Discharge ordered by Provider. cc10 22:17 Discharge Assessment: patient administered narcotics - no. The following High Risk kas2 Discharge criteria are identified: None. Discharged to home. Condition: good Condition: stable Condition: improved. No special radiology studies were completed. Property :Personal belongings accompany Pt. 22:18 Patient left the ED. kas2 Signatures: Ravi De Souza Hannah, RN RN hs1 Sammie Blevins Jamie jml1 Juan Tobias, PA-C PA-C cc10 Stone Chapa, FINGER BUFFS ASSEMBLER FINGER BUFFS ASSEMBLER jrd Heidy Bass,RN RN kc3 Neeta Roberts,CHERISE RN kas2 MTDD
--- NOTE | 2016-07-22 22:19 | EDDOCDS ---
Physician Documentation [facility] Name: Seth Faith Age: 36 yrs Sex: Male : 1980 Arrival Date: 07/22/2016 Time: 17:31 Bed I4 / M4 Private MD: Ernie Diane H. Disposition: 07/22/16 22:08 Discharged to Home/Self Care. Impression: Fecal impaction, Constipation - chronic. - Condition is Stable. - Discharge Instructions: Constipation, Adult, Fecal Impaction. - Prescriptions for Magnesium Citrate Oral Solution - take 1 bottle by ORAL route once daily; 1 bottle. - Medication Reconciliation form. - Follow up: Ernie Diane; When: Tomorrow; Reason: Recheck today's complaints, Continuance of care. - Problem is chronic. - Symptoms have improved. Historical: - Allergies: Latex (Rash); muscle relaxers (makes spasms worse); - Home Meds: 1. Ambien 5 mg Oral tab 1 tab as needed 2. diazepam 10 mg Oral tab 1 tab TID, has been out for a few weeks has been out for past month 3. gabapentin 300 mg Oral tab 2 tab three times a day 4. Keppra 750 mg Oral tab 1 tab daily 5. lactulose 10 gram/15 mL (15 mL) Oral soln 30 mL 4 times per day out of medication 6. oxycodone 30 mg Oral tab 1 tab 4-5 times per day 7. ProAir HFA inhalation as needed - PMHx: Multiple Sclerosis; UTI; - PSHx: none; - Social history: No barriers to communication noted, The patient speaks fluent Bengali, Speaks appropriately for age, Smoking status: Patient uses tobacco products, current some day smoker. Patient uses street drugs, marijuana. - Family history: Not pertinent. - : The pt / caregiver states he / she is not on anticoagulants. Home medication list is obtained from the patient, Unable to Verify Home Med List with the patient / caregiver. - Exposure Risk Screening:: None identified. Vital Signs: 07/22 17:44 BP 130 / 83; Pulse 79; Resp 18; Temp 98.3(O); Pulse Ox 99% on R/A; Weight 58.97 kg / jml1 130.01 lbs; Height 6 ft. 2 in. (187.96 cm); Pain 8/10; 22:15 BP 133 / 74; Pulse 75; Resp 18; Temp 97.8; Pulse Ox 99% ; ajs 17:44 Body Mass Index 16.69 (58.97 kg, 187.96 cm) jml1 Procedures: 21:04 Fecal disimpaction: digital disimpaction was performed, with a large amount of stool cc10 expressed. The patient tolerated the intervention well. MDM: 18:37 [facility] [place] Agreement was scanned into [employer] and attached to record. zo 19:27 Abdomen, Flat\E\Upright,PA Chest Ordered. EDMS 20:33 Enema - Oil Retention ordered. cc10 20:51 Financial registration complete. zo Signatures: Dispatcher [employer] EDMS Ravi De Souza Hannah, RN RN hs1 Juan Tobias, PA-C PA-C cc10 Neeta RobertsRN RN kas2 The chart was reviewed and I authenticate all verbal orders and agree with the evaluation and treatment provided.Attachments: 18:37 [facility] [place] Payment Agreement zo MTDD
--- NOTE | 2016-07-22 23:48 | EDDOCDS ---
Nurse's Notes [facility] Name: Seth Faith Age: 36 yrs Sex: Male : 1980 Arrival Date: 07/22/2016 Time: 17:31 Bed I4 / M4 Private MD: Ernie Diane H. Diagnosis: Fecal impaction;Constipation-chronic Presentation: 07/22 17:39 Presenting complaint: EMS states: called 911 for pain in left side of abdomen. Patient hs1 reported to EMS no bowel movement since he was last here a couple weeks ago. Patient states that he believes his pain is his body "being the way it is". Risk factors: the patient reports not having a history of previous torsion. Adult Sepsis Screening: The patient does not have new or worsening altered mentation. Patient's respiratory rate is less than 22. Systolic blood pressure is greater than 100. Patient has a qSOFA score of 0- Negative Sepsis Screen. Suicide/Homicide risk assessment- the patient denies having any suicidal and/or homicidal ideations and does not present with any other emotional, behavioral or mental health complaints. Status: Patient is not a service center manager or dependent. Transition of care: patient was not received from another setting of care. 17:39 Acuity: ROBYN Level 3 hs1 17:39 Method Of Arrival: Ambulance hs1 Triage Assessment: 17:43 General: Appears in no apparent distress, Behavior is appropriate for age, cooperative. hs1 Pain: Location: abdomen Pain currently is 8 out of 10 on a pain scale. HIV screening NA for this visit Offered previously. Neurological: No deficits noted. GI: Abdomen is non- distended. Historical: - Allergies: Latex (Rash); muscle relaxers (makes spasms worse); - Home Meds: 1. Ambien 5 mg Oral tab 1 tab as needed 2. diazepam 10 mg Oral tab 1 tab TID, has been out for a few weeks has been out for past month 3. gabapentin 300 mg Oral tab 2 tab three times a day 4. Keppra 750 mg Oral tab 1 tab daily 5. lactulose 10 gram/15 mL (15 mL) Oral soln 30 mL 4 times per day out of medication 6. oxycodone 30 mg Oral tab 1 tab 4-5 times per day 7. ProAir HFA inhalation as needed - PMHx: Multiple Sclerosis; UTI; - PSHx: none; - Social history: No barriers to communication noted, The patient speaks fluent Burundian, Speaks appropriately for age, Smoking status: Patient uses tobacco products, current some day smoker. Patient uses street drugs, marijuana. - Family history: Not pertinent. - : The pt / caregiver states he / she is not on anticoagulants. Home medication list is obtained from the patient, Unable to Verify Home Med List with the patient / caregiver. - Exposure Risk Screening:: None identified. Screenin:43 Screening information is obtained from the patient. Fall risk: At risk due to hs1 immobility. Assistance ADL's: requires no assistance with activities of daily living. Abuse/DV Screen: The patient / caregiver reports he/she is: not in a situation that causes fear, pain or injury. Nutritional screening: No deficits noted. Advance Directives: There is no active DNR order. home support is adequate. Assessment: 16:38 General: Appears in no apparent distress. Pain: Location: abdomen. GI: Abdomen is flat, hs1 non- distended Bowel sounds present X 4 quads. Abd is soft X 4 quads Abd is tender to palpation X 4 quads. Derm: Skin is pink, warm & dry. normal. 22:14 General: Appears in no apparent distress, Behavior is. General: Behavior is appropriate kas2 for age, cooperative. Pain: Denies pain. Neurological: Level of Consciousness is awake, alert, Oriented to person, place, time. Cardiovascular: Rhythm is regular. Respiratory: Airway is patent Respiratory effort is even, unlabored, Respiratory pattern is regular, symmetrical. GI: Abdomen is flat, non- distended Bowel sounds present X 4 quads. Abd is soft X 4 quads. Derm: Skin is intact, Skin is dry, Skin is pink, warm & dry. Skin temperature is. Vital Signs: 17:44 BP 130 / 83; Pulse 79; Resp 18; Temp 98.3(O); Pulse Ox 99% on R/A; Weight 58.97 kg; jml1 Height 6 ft. 2 in. (187.96 cm); Pain 8/10; 22:15 BP 133 / 74; Pulse 75; Resp 18; Temp 97.8; Pulse Ox 99% ; ajs 17:44 Body Mass Index 16.69 (58.97 kg, 187.96 cm) [facility] Vitals: 17:43 Log In Time N/A - ambulance arrival. hs1 ED Course: 17:32 Patient visited by Stone Chapa PCA. jrd 17:32 Ernie Diane is Private Physician. jrd 17:32 Patient moved to Waiting jrd 17:33 Patient moved to I4 / M4 jrd 17:38 Patient visited by Katey Pablo RN. hs1 17:40 Triage Initiated hs1 17:43 Patient visited by Katey Pablo RN. hs1 17:44 Patient visited by Laci Kendrick. jml1 18:37 [facility] Payment Agreement was scanned into [employer] and attached to record. zo 18:58 Patient visited by Katey Pablo RN. hs1 19:21 Juan Tobias PA-C is PHCP. cc10 19:22 Blanca Esquivel MD is Attending Physician. cc10 19:22 Patient visited by Juan Tobias PA-C. cc10 19:22 Patient visited by Juan Tobias PA-C. cc10 20:00 Patient visited by Neeta Roberts RN. kas2 20:36 Patient visited by Heidy Bass RN. kc3 20:52 Patient visited by Juan Tobias PA-C. cc10 21:56 Patient visited by Neeta Roberts RN. kas2 22:08 Ernie Diane is Referral Physician. cc10 22:15 Patient visited by Sammie Blevins. ajs 22:16 Patient visited by Neeta Roberts RN. kas2 22:18 The patient / caregiver is instructed regarding the plan of care and ED course. kas2 22:18 No IV's were initiated during this patient's visit. No procedures done that require kas2 assistance. Order Results: There are currently no results for this order. Outcome: 22:08 Discharge ordered by Provider. cc10 22:17 Discharge Assessment: patient administered narcotics - no. The following High Risk kas2 Discharge criteria are identified: None. Discharged to home. Condition: good Condition: stable Condition: improved. No special radiology studies were completed. Property :Personal belongings accompany Pt. 22:18 Patient left the ED. kas2 23:47 Patient left the ED. kas2 Signatures: Ravi De Souza Hannah, RN RN hs1 Sammie Blevins Jamie jml1 Juan Tobias, PA-C PA-C cc10 Stone Chapa, DEANN PROTECTOR PLATE ATTACHER d Heidy Bass,RN RN kc3 Neeta RobertsRN RN kas2 [facility]
--- NOTE | 2016-07-22 23:48 | EDDOCDS ---
Physician Documentation [facility] Name: Seth Faith Age: 36 yrs Sex: Male : 1980 Arrival Date: 07/22/2016 Time: 17:31 Bed I4 / M4 Private MD: Ernie Diane H. Disposition: 07/22/16 22:08 Discharged to Home/Self Care. Impression: Fecal impaction, Constipation - chronic. - Condition is Stable. - Discharge Instructions: Constipation, Adult, Fecal Impaction. - Prescriptions for Magnesium Citrate Oral Solution - take 1 bottle by ORAL route once daily; 1 bottle. - Medication Reconciliation form. - Follow up: Ernie Diane; When: Tomorrow; Reason: Recheck today's complaints, Continuance of care. - Problem is chronic. - Symptoms have improved. Historical: - Allergies: Latex (Rash); muscle relaxers (makes spasms worse); - Home Meds: 1. Ambien 5 mg Oral tab 1 tab as needed 2. diazepam 10 mg Oral tab 1 tab TID, has been out for a few weeks has been out for past month 3. gabapentin 300 mg Oral tab 2 tab three times a day 4. Keppra 750 mg Oral tab 1 tab daily 5. lactulose 10 gram/15 mL (15 mL) Oral soln 30 mL 4 times per day out of medication 6. oxycodone 30 mg Oral tab 1 tab 4-5 times per day 7. ProAir HFA inhalation as needed - PMHx: Multiple Sclerosis; UTI; - PSHx: none; - Social history: No barriers to communication noted, The patient speaks fluent Slovak, Speaks appropriately for age, Smoking status: Patient uses tobacco products, current some day smoker. Patient uses street drugs, marijuana. - Family history: Not pertinent. - : The pt / caregiver states he / she is not on anticoagulants. Home medication list is obtained from the patient, Unable to Verify Home Med List with the patient / caregiver. - Exposure Risk Screening:: None identified. Vital Signs: 07/22 17:44 BP 130 / 83; Pulse 79; Resp 18; Temp 98.3(O); Pulse Ox 99% on R/A; Weight 58.97 kg / jml1 130.01 lbs; Height 6 ft. 2 in. (187.96 cm); Pain 8/10; 22:15 BP 133 / 74; Pulse 75; Resp 18; Temp 97.8; Pulse Ox 99% ; ajs 17:44 Body Mass Index 16.69 (58.97 kg, 187.96 cm) jml1 Procedures: 21:04 Fecal disimpaction: digital disimpaction was performed, with a large amount of stool cc10 expressed. The patient tolerated the intervention well. MDM: 18:37 [facility] [place] was scanned into [employer] and attached to record. zo 19:27 Abdomen, Flat\E\Upright,PA Chest Ordered. EDMS 20:33 Enema - Oil Retention ordered. cc10 20:51 Financial registration complete. zo Signatures: Dispatcher [employer] EDMS Ravi De Souza Hannah, RN RN hs1 Juan Tobias, PA-C PA-C cc10 Neeta RobertsRN RN kas2 The chart was reviewed and I authenticate all verbal orders and agree with the evaluation and treatment provided.Attachments: 18:37 [facility] [place] zo MTDD
--- NOTE | 2016-07-23 08:06 | REP ---
EXAMINATION OF THE ABDOMEN: HISTORY: Abdominal pain. On multiple views of the abdomen, there are no findings of free air. The bowel pattern is within normal limits. No ileus or bowel obstruction. There is what is presumed to be a catheter or lead passed into the bladder. Remaining structures unremarkable. IMPRESSION: No significant findings. There is considerable stool in colon. Unreviewed
--- NOTE | 2016-07-25 00:48 | EDDOCDS ---
Physician Documentation [facility] Name: Seth Faith Age: 36 yrs Sex: Male : 1980 Arrival Date: 07/22/2016 Time: 17:31 Bed I4 / M4 Private MD: Ernie Diane H. Disposition: 07/22/16 22:08 Discharged to Home/Self Care. Impression: Fecal impaction, Constipation - chronic. - Condition is Stable. - Discharge Instructions: Constipation, Adult, Fecal Impaction. - Prescriptions for Magnesium Citrate Oral Solution - take 1 bottle by ORAL route once daily; 1 bottle. - Medication Reconciliation form. - Follow up: Ernie Diane; When: Tomorrow; Reason: Recheck today's complaints, Continuance of care. - Problem is chronic. - Symptoms have improved. Historical: - Allergies: Latex (Rash); muscle relaxers (makes spasms worse); - Home Meds: 1. Ambien 5 mg Oral tab 1 tab as needed 2. diazepam 10 mg Oral tab 1 tab TID, has been out for a few weeks has been out for past month 3. gabapentin 300 mg Oral tab 2 tab three times a day 4. Keppra 750 mg Oral tab 1 tab daily 5. lactulose 10 gram/15 mL (15 mL) Oral soln 30 mL 4 times per day out of medication 6. oxycodone 30 mg Oral tab 1 tab 4-5 times per day 7. ProAir HFA inhalation as needed - PMHx: Multiple Sclerosis; UTI; - PSHx: none; - Social history: No barriers to communication noted, The patient speaks fluent Faroese, Speaks appropriately for age, Smoking status: Patient uses tobacco products, current some day smoker. Patient uses street drugs, marijuana. - Family history: Not pertinent. - : The pt / caregiver states he / she is not on anticoagulants. Home medication list is obtained from the patient, Unable to Verify Home Med List with the patient / caregiver. - Exposure Risk Screening:: None identified. Vital Signs: 07/22 17:44 BP 130 / 83; Pulse 79; Resp 18; Temp 98.3(O); Pulse Ox 99% on R/A; Weight 58.97 kg / jml1 130.01 lbs; Height 6 ft. 2 in. (187.96 cm); Pain 8/10; 22:15 BP 133 / 74; Pulse 75; Resp 18; Temp 97.8; Pulse Ox 99% ; ajs 17:44 Body Mass Index 16.69 (58.97 kg, 187.96 cm) jml1 Procedures: 21:04 Fecal disimpaction: digital disimpaction was performed, with a large amount of stool cc10 expressed. The patient tolerated the intervention well. MDM: 18:37 [facility] Payment Agreement was scanned into [employer] and attached to record. zo 19:27 Abdomen, Flat\E\Upright,PA Chest Ordered. EDMS 20:33 Enema - Oil Retention ordered. cc10 20:51 Financial registration complete. zo 07/23 10:51 T-Sheet-- Draft Copy was scanned into [employer] and attached to record. gb Signatures: Dispatcher [employer] EDMS Khushboo Schrader, Reg Reg gb Ravi De Souza zo Katey Pablo, RN RN hs1 Juan Tobias, PA-C PA-C cc10 Neeta RobertsRN RN kas2 The chart was reviewed and I authenticate all verbal orders and agree with the evaluation and treatment provided.Attachments: 07/22 18:37 [facility] Payment Agreement zo 07/23 10:51 T-Sheet-- Draft Copy gb Chart Complete MTDD
--- NOTE | 2016-07-25 00:48 | EDDOCDS ---
Physician Documentation [facility] Name: Seth Faith Age: 36 yrs Sex: Male : 1980 Arrival Date: 07/22/2016 Time: 17:31 Bed I4 / M4 Private MD: Ernie Diane H. Disposition: 07/22/16 22:08 Discharged to Home/Self Care. Impression: Fecal impaction, Constipation - chronic. - Condition is Stable. - Discharge Instructions: Constipation, Adult, Fecal Impaction. - Prescriptions for Magnesium Citrate Oral Solution - take 1 bottle by ORAL route once daily; 1 bottle. - Medication Reconciliation form. - Follow up: Ernie Diane; When: Tomorrow; Reason: Recheck today's complaints, Continuance of care. - Problem is chronic. - Symptoms have improved. Historical: - Allergies: Latex (Rash); muscle relaxers (makes spasms worse); - Home Meds: 1. Ambien 5 mg Oral tab 1 tab as needed 2. diazepam 10 mg Oral tab 1 tab TID, has been out for a few weeks has been out for past month 3. gabapentin 300 mg Oral tab 2 tab three times a day 4. Keppra 750 mg Oral tab 1 tab daily 5. lactulose 10 gram/15 mL (15 mL) Oral soln 30 mL 4 times per day out of medication 6. oxycodone 30 mg Oral tab 1 tab 4-5 times per day 7. ProAir HFA inhalation as needed - PMHx: Multiple Sclerosis; UTI; - PSHx: none; - Social history: No barriers to communication noted, The patient speaks fluent Wolof, Speaks appropriately for age, Smoking status: Patient uses tobacco products, current some day smoker. Patient uses street drugs, marijuana. - Family history: Not pertinent. - : The pt / caregiver states he / she is not on anticoagulants. Home medication list is obtained from the patient, Unable to Verify Home Med List with the patient / caregiver. - Exposure Risk Screening:: None identified. Vital Signs: 07/22 17:44 BP 130 / 83; Pulse 79; Resp 18; Temp 98.3(O); Pulse Ox 99% on R/A; Weight 58.97 kg / jml1 130.01 lbs; Height 6 ft. 2 in. (187.96 cm); Pain 8/10; 22:15 BP 133 / 74; Pulse 75; Resp 18; Temp 97.8; Pulse Ox 99% ; ajs 17:44 Body Mass Index 16.69 (58.97 kg, 187.96 cm) jml1 Procedures: 21:04 Fecal disimpaction: digital disimpaction was performed, with a large amount of stool cc10 expressed. The patient tolerated the intervention well. MDM: 18:37 [place] [place] Agreement was scanned into [employer] and attached to record. zo 19:27 Abdomen, Flat\E\Upright,PA Chest Ordered. EDMS 20:33 Enema - Oil Retention ordered. cc10 20:51 Financial registration complete. zo 07/23 10:51 T-Sheet-- Draft Copy was scanned into [employer] and attached to record. gb Signatures: Dispatcher [employer] EDMS Khushboo Schrader, Reg Reg gb Ravi De Souza zo Katey Pablo, RN RN hs1 Juan Tobias, PA-C PA-C cc10 Neeta RobertsRN RN kas2 The chart was reviewed and I authenticate all verbal orders and agree with the evaluation and treatment provided.Attachments: 07/22 18:37 [facility] [place] Agreement zo 07/23 10:51 T-Sheet-- Draft Copy gb Chart Complete MTDD
--- NOTE | 2016-07-25 00:48 | EDDOCDS ---
Nurse's Notes [facility] Name: Seth Faith Age: 36 yrs Sex: Male : 1980 Arrival Date: 07/22/2016 Time: 17:31 Bed I4 / M4 Private MD: Ernie Diane H. Diagnosis: Fecal impaction;Constipation-chronic Presentation: 07/22 17:39 Presenting complaint: EMS states: called 911 for pain in left side of abdomen. Patient hs1 reported to EMS no bowel movement since he was last here a couple weeks ago. Patient states that he believes his pain is his body "being the way it is". Risk factors: the patient reports not having a history of previous torsion. Adult Sepsis Screening: The patient does not have new or worsening altered mentation. Patient's respiratory rate is less than 22. Systolic blood pressure is greater than 100. Patient has a qSOFA score of 0- Negative Sepsis Screen. Suicide/Homicide risk assessment- the patient denies having any suicidal and/or homicidal ideations and does not present with any other emotional, behavioral or mental health complaints. Status: Patient is not a dietary services manager or dependent. Transition of care: patient was not received from another setting of care. 17:39 Acuity: ROBYN Level 3 hs1 17:39 Method Of Arrival: Ambulance hs1 Triage Assessment: 17:43 General: Appears in no apparent distress, Behavior is appropriate for age, cooperative. hs1 Pain: Location: abdomen Pain currently is 8 out of 10 on a pain scale. HIV screening NA for this visit Offered previously. Neurological: No deficits noted. GI: Abdomen is non- distended. Historical: - Allergies: Latex (Rash); muscle relaxers (makes spasms worse); - Home Meds: 1. Ambien 5 mg Oral tab 1 tab as needed 2. diazepam 10 mg Oral tab 1 tab TID, has been out for a few weeks has been out for past month 3. gabapentin 300 mg Oral tab 2 tab three times a day 4. Keppra 750 mg Oral tab 1 tab daily 5. lactulose 10 gram/15 mL (15 mL) Oral soln 30 mL 4 times per day out of medication 6. oxycodone 30 mg Oral tab 1 tab 4-5 times per day 7. ProAir HFA inhalation as needed - PMHx: Multiple Sclerosis; UTI; - PSHx: none; - Social history: No barriers to communication noted, The patient speaks fluent Luxembourger, Speaks appropriately for age, Smoking status: Patient uses tobacco products, current some day smoker. Patient uses street drugs, marijuana. - Family history: Not pertinent. - : The pt / caregiver states he / she is not on anticoagulants. Home medication list is obtained from the patient, Unable to Verify Home Med List with the patient / caregiver. - Exposure Risk Screening:: None identified. Screenin:43 Screening information is obtained from the patient. Fall risk: At risk due to hs1 immobility. Assistance ADL's: requires no assistance with activities of daily living. Abuse/DV Screen: The patient / caregiver reports he/she is: not in a situation that causes fear, pain or injury. Nutritional screening: No deficits noted. Advance Directives: There is no active DNR order. home support is adequate. Assessment: 16:38 General: Appears in no apparent distress. Pain: Location: abdomen. GI: Abdomen is flat, hs1 non- distended Bowel sounds present X 4 quads. Abd is soft X 4 quads Abd is tender to palpation X 4 quads. Derm: Skin is pink, warm & dry. normal. 22:14 General: Appears in no apparent distress, Behavior is. General: Behavior is appropriate kas2 for age, cooperative. Pain: Denies pain. Neurological: Level of Consciousness is awake, alert, Oriented to person, place, time. Cardiovascular: Rhythm is regular. Respiratory: Airway is patent Respiratory effort is even, unlabored, Respiratory pattern is regular, symmetrical. GI: Abdomen is flat, non- distended Bowel sounds present X 4 quads. Abd is soft X 4 quads. Derm: Skin is intact, Skin is dry, Skin is pink, warm & dry. Skin temperature is. Vital Signs: 17:44 BP 130 / 83; Pulse 79; Resp 18; Temp 98.3(O); Pulse Ox 99% on R/A; Weight 58.97 kg; jml1 Height 6 ft. 2 in. (187.96 cm); Pain 8/10; 22:15 BP 133 / 74; Pulse 75; Resp 18; Temp 97.8; Pulse Ox 99% ; ajs 17:44 Body Mass Index 16.69 (58.97 kg, 187.96 cm) [facility] Vitals: 17:43 Log In Time N/A - ambulance arrival. hs1 ED Course: 17:32 Patient visited by Stone Chapa PCA. jrd 17:32 Ernie Diane is Private Physician. jrd 17:32 Patient moved to Waiting jrd 17:33 Patient moved to I4 / M4 jrd 17:38 Patient visited by Kaety Pablo RN. hs1 17:40 Triage Initiated hs1 17:43 Patient visited by Katey Pablo RN. hs1 17:44 Patient visited by Laci Kendrick. jml1 18:37 [facility] Payment Agreement was scanned into [employer] and attached to record. zo 18:58 Patient visited by Katey Pablo RN. hs1 19:21 Juan Tobias PA-C is PHCP. cc10 19:22 Blanca Esquivel MD is Attending Physician. cc10 19:22 Patient visited by Juan Tobias PA-C. cc10 19:22 Patient visited by Juan Tobias PA-C. cc10 20:00 Patient visited by Neeta Roberts RN. kas2 20:36 Patient visited by Heidy Bass RN. kc3 20:52 Patient visited by Juan Tobias PA-C. cc10 21:56 Patient visited by Neeta Roberts RN. kas2 22:08 Ernie Diane is Referral Physician. cc10 22:15 Patient visited by Sammie Blevins. ajs 22:16 Patient visited by Neeta Roberts RN. kas2 22:18 The patient / caregiver is instructed regarding the plan of care and ED course. kas2 22:18 No IV's were initiated during this patient's visit. No procedures done that require kas2 assistance. 07/23 08:44 Abdomen, Flat\\E\\Upright,PA Chest Returned. EDMS 10:51 T-Sheet-- Draft Copy was scanned into [employer] and attached to record. gb Order Results: Radiology Order: Abdomen, Flat\\E\\Upright,PA Chest Test: Abdomen, Flat\\E\\Upright,PA Chest REASON FOR EXAMINATION: Abdomen Pain; EXAMINATION OF THE ABDOMEN:; ; HISTORY: Abdominal pain.; ; On multiple views of the abdomen, there are no findings of free air. The bowel; pattern is within normal limits. No ileus or bowel obstruction.; ; There is what is presumed to be a catheter or lead passed into the bladder.; ; Remaining structures unremarkable.; ; IMPRESSION:; No significant findings. There is considerable stool in colon.; ; Unreviewed; Outcome: 07/22 22:08 Discharge ordered by Provider. cc10 22:17 Discharge Assessment: patient administered narcotics - no. The following High Risk [facility] Discharge criteria are identified: None. Discharged to home. Condition: good Condition: stable Condition: improved. No special radiology studies were completed. Property :Personal belongings accompany Pt. 22:18 Patient left the ED. kas2 23:47 Patient left the ED. kas2 Signatures: Dispatcher [employer] EDMS Khushboo Schrader, Ravi Mcgrath Hannah, RN RN hs1 Sammie Blevins Jamie jml1 Juan Tobias, PA-C PA-C cc10 Stone Chapa, LINEN ROOM WORKER LINEN ROOM WORKER Heidy Blackburn,RN RN kc3 Neeta Roberts,RN RN kas2 Chart Complete DORA
== END 2016-07-22 23:47 | disposition home or self-care (01) ==
LOC: M ED 17:31
DX: K56.41 Fecal impaction (principal); K59.09 Other constipation; G35 Multiple sclerosis; Z72.0 Tobacco use; Z79.891 Long term (current) use of opiate analgesic; Z79.899 Other long term (current) drug therapy; Z88.5 Allergy status to narcotic agent; Z91.040 Latex allergy status

== ENCOUNTER 2016-08-04 07:16 | Emergency (ER) | payer MEDICARE, OTHER ==
[~2016-08-04] VITALS: Ht 185.4 cm; Wt 59.0 kg
[2016-08-04 07:27] VITALS: BP 135/72
[2016-08-04 08:45] LABS: BASO % 0.4 % (0.0-1.0); EOS # 0.2 K/mm3 (0.0-0.50); EOS % 2.5 % (0.0-3.0); LARGE UNSTAINED CELL # 0.1 K/mm3 (0.0-0.4); LARGE UNSTAINED CELL % 0.8 % (0.0-4.0); LYMPH % 31.2 % (24.0-44.0); MEAN CORPUSCULAR HEMOGLOBIN 28.7 pg (27.0-33.0); MEAN CORPUSCULAR HGB CONC 33.3 g/dl (32.0-36.5); MEAN CORPUSCULAR VOLUME 86.3 fl (80.0-96.0); MONO # 0.6 K/mm3 (0.0-0.8); MONO % 6.8 % (0.0-5.0); NEUTROPHILS # 5.4 K/mm3 (1.8-7.7); NEUTROPHILS % 58.3 % (36.0-66.0); PLATELET COUNT, AUTOMATED 328 k/mm3 (150-450); RED CELL DISTRIBUTION WIDTH 13.9 % (11.5-14.5); WHITE BLOOD COUNT 9.2 K/mm3 (4.0-10.0)
--- NOTE | 2016-08-04 08:50 | REP ---
Abdominal series: Three views. History: Abdominal pain. Comparison study July 22, 2016. Findings: There is right apical pleuroparenchymal fibrosis as seen on previous chest x-ray. Lung kraft are otherwise clear. Heart is not enlarged. No free subdiaphragmatic air is seen. Supine view of the abdomen and cross-table lateral view of the upper abdomen is presented. There is no evidence of free intraperitoneal air. Bowel gas pattern is unremarkable with air and stool in a nondistended colon. Moderate distal stool is seen. There is a urinary catheter noted in the region of the bladder and a 2.2 cm calculus is seen consistent with a bladder stone. Previous CTs have shown bladder calculi. Impression: 1. 2.2 cm bladder stone. Coburn catheter. 2. Moderate distal colonic stool. 3. Right apical pleuroparenchymal fibrosis unchanged. Signed by Jesus Garcia MD 08/04/2016 02:26 P
[2016-08-04 09:15] LABS: ALBUMIN 3.7 GM/DL (3.2-5.2); ALBUMIN/GLOBULIN RATIO 1.12 (1.00-1.93); ALKALINE PHOSPHATASE 100 U/L (45-117); ALT/SGPT 15 U/L (12-78); ANION GAP 8 MEQ/L (8-16); AST/SGOT 19 U/L (15-37); BILIRUBIN,DIRECT < 0.1 MG/DL (0.0-0.2); BILIRUBIN,TOTAL 0.3 MG/DL (0.2-1.0); BLOOD UREA NITROGEN 13 MG/DL (7-18); CALCIUM LEVEL 8.7 MG/DL (8.5-10.1); CARBON DIOXIDE LEVEL 28 MEQ/L (21-32); CHLORIDE LEVEL 108 MEQ/L (98-107); CREATININE FOR GFR 0.61 MG/DL (0.70-1.30); GLOMERULAR FILTRATION RATE > 60.0 (>60); GLUCOSE, FASTING 84 MG/DL (70-105); POTASSIUM SERUM 3.8 MEQ/L (3.5-5.1); SODIUM LEVEL 144 MEQ/L (136-145)
== END 2016-08-04 15:23 | disposition home or self-care (01) ==
LOC: EDBD 07:16 → M ED 07:48
DX: K59.09 Other constipation (principal); G35 Multiple sclerosis; N21.0 Calculus in bladder; Z96.0 Presence of urogenital implants; Z79.899 Other long term (current) drug therapy; Z88.8 Allergy status to other drugs, medicaments and biological substances; Z91.040 Latex allergy status

== ENCOUNTER 2016-08-07 18:48 | Emergency (ER) | payer MEDICARE, OTHER ==
[2016-08-07 19:20] VITALS: BP 153/71
[2016-08-07] MEDS ORDERED: LORazepam 1 MG TAB PO STA (19:36)
[2016-08-07] MEDS ORDERED: ONDANSETRON 4 MG ORAL DISINTEGRATING TAB (S0181) PO ONE (19:45)
[2016-08-07] MEDS ORDERED: oxyCODONE 10 MG CR TAB PO ONE (21:00)
[2016-08-07] MEDS ORDERED: PERCOCET 5MG/325MG TAB PO ONE (21:00)
[2016-08-07] MEDS ORDERED: oxyCODONE 5MG TAB PO ONE (21:00)
[2016-08-08] MEDS ORDERED: OXYCODONE/APAP 5MG/325MG(BULK) 1 TAB TAB PO ONE (00:30)
[2016-08-08] MEDS ORDERED: diazePAM 2 MG TAB PO ONE (00:45)
[2016-08-09] MEDS ORDERED: LACT20EL PO (13:41)
== END 2016-08-08 02:21 | disposition home or self-care (01) ==
LOC: EDBD 18:48 → M ED 20:15
DX: K59.09 Other constipation (principal); G35 Multiple sclerosis; Z91.040 Latex allergy status; Z88.8 Allergy status to other drugs, medicaments and biological substances; Z79.899 Other long term (current) drug therapy; F17.210 Nicotine dependence, cigarettes, uncomplicated; I95.9 Hypotension, unspecified; J40 Bronchitis, not specified as acute or chronic; R10.9 Unspecified abdominal pain; R19.7 Diarrhea, unspecified; Z87.442 Personal history of urinary calculi; Z87.440 Personal history of urinary (tract) infections; H53.2 Diplopia; H93.19 Tinnitus, unspecified ear; M19.90 Unspecified osteoarthritis, unspecified site; M51.9 Unspecified thoracic, thoracolumbar and lumbosacral intervertebral disc disorder; F41.9 Anxiety disorder, unspecified; F32.9 Major depressive disorder, single episode, unspecified; F10.10 Alcohol abuse, uncomplicated; F19.10 Other psychoactive substance abuse, uncomplicated

== ENCOUNTER 2016-08-09 04:35 | Inpatient (IN) | payer MEDICARE, OTHER ==
[~2016-08-09] VITALS: Ht 185.4 cm; Wt 57.1 kg
[2016-08-09] MEDS ORDERED: NS 500 ML IV ONE (08:15)
[2016-08-09 08:55] LABS: MEAN CORPUSCULAR HEMOGLOBIN 28.2 pg (27.0-33.0); MEAN CORPUSCULAR HGB CONC 32.8 g/dl (32.0-36.5); MEAN CORPUSCULAR VOLUME 85.9 fl (80.0-96.0); WHITE BLOOD COUNT 7.8 K/mm3 (4.0-10.0)
[2016-08-09] MEDS ORDERED: HYDROmorphone HCL 1 MG/ML SYRINGE (J1170) IV ONE (09:15)
[2016-08-09] MEDS ORDERED: NS 1,000 ML IV ONE (09:15)
[2016-08-09 09:19] LABS: ANION GAP 7 MEQ/L (8-16); BLOOD UREA NITROGEN 20 MG/DL (7-18); CALCIUM LEVEL 9.4 MG/DL (8.5-10.1); CARBON DIOXIDE LEVEL 29 MEQ/L (21-32); CHLORIDE LEVEL 110 MEQ/L (98-107); CREATININE FOR GFR 0.73 MG/DL (0.70-1.30); GLOMERULAR FILTRATION RATE > 60.0 (>60); GLUCOSE, FASTING 92 MG/DL (70-105); POTASSIUM SERUM 4.1 MEQ/L (3.5-5.1); SODIUM LEVEL 146 MEQ/L (136-145)
[2016-08-09] MEDS ORDERED: ISOVUE-370 76% 100ML VIAL (Q9967) As Ordered ONE (09:29)
[2016-08-09 09:36] LABS: EOSINOPHILS 1 % (0-5); POIKILOCYTOSIS 1+
[2016-08-09 09:37] LABS: ANISOCYTOSIS 1+
[2016-08-09 09:38] LABS: ALBUMIN 4.1 GM/DL (3.2-5.2); ALBUMIN/GLOBULIN RATIO 1.11 (1.00-1.93); ALKALINE PHOSPHATASE 109 U/L (45-117); ALT/SGPT 17 U/L (12-78); AST/SGOT 20 U/L (15-37); BILIRUBIN,DIRECT < 0.1 MG/DL (0.0-0.2); BILIRUBIN,TOTAL 0.3 MG/DL (0.2-1.0); TOTAL PROTEIN 7.8 GM/DL (6.4-8.2)
--- NOTE | 2016-08-09 10:50 | REP ---
REASON: Diffuse abdominal pain. COMPARISON: 05/14/2016 Contrast: 100 mL Isovue 370. The lung bases are clear and unchanged. The liver, spleen, pancreas, adrenal glands, and gallbladder are unremarkable. There is spray artifact arising from the patient's right arm being down along the side limiting imaging detail. The abdominal aorta and para-aortic regions are within normal limits. No free fluid or free air is present in the abdomen. The bowel loops and their mesenteries appear to be within normal limits. There is a large amount of stool in the rectosigmoid region. There is a catheter in the urinary bladder. There is no free fluid or free air in the pelvis. Bone window technique throughout the examination shows no evidence of significant change from the prior exam. IMPRESSION: 1. Exam limitations as described above. 2. No evidence of acute intraabdominal or intrapelvic disease with findings as described above. Signed by Fareed Paul DO 08/09/2016 11:30 A
[2016-08-09] MEDS ORDERED: LACT20EL PO (13:41)
[2016-08-09] MEDS ORDERED: ALBUTEROL 90 MCG/ACT 8GM HFA INHALER INH PRN (13:45)
[2016-08-09] MEDS ORDERED: MORPHINE 2 MG/ML 1ML SYRINGE IV PRN (13:45)
--- NOTE | 2016-08-09 14:25 | HPEPDOC ---
General Date of Admission 08/09/16 2:16PM Chief Complaint The patient is a 36-year-old male admitted with a reason for visit of Generalized Pain. Source: Patient Exam Limitations: No limitations Timing/Duration: Constant, Getting worse Severity: Moderate, Severe Associated Symptoms: Loss of appetite History of Present Illness 36 yo male with PMHx MS, chronic pain, sacral ulcer, urinary retention/ neurogenic bladder/chronic caputo, chronic constipation requiring very frequent disimpaction returns to ER for continued worsening generalized pain. Also found to be constipated with impacted stool visible protruding through rectal vault. Patient also states he has been unable to perform his usual ADL's secondary to pain. He uses a power chair for ambulation. He does have home health that comes daily in the morning for about one hour. He is agreeable with the possibility of placement. He denies any other medical complaints. Home Medications Scheduled Gabapentin (Gabapentin) 300 Mg Cap 600 MG PO TID (Reported) Lactulose (Lactulose) 10 Gm/15 Ml Marnie 30 GM PO DAILY (Reported) Levetiracetam (Levetiracetam) 750 Mg Tab 750 MG PO BID (Reported) Scheduled PRN Albuterol Sulfate (Ventolin Hfa) 200 Puff/8 Gm Aers 2 PUFF INH Q4H PRN PRN SHORTNESS OF BREATH (Reported) Diazepam (Diazepam) 10 Mg Tab 10 MG PO TID PRN PRN ANXIETY (Reported) Oxycodone Hcl (Oxycodone HCl) 30 Mg Tab 30 MG PO QID PRN PRN PAIN (Reported) Zolpidem Tartrate (Ambien) 5 Mg Tab 5 MG PO QHS PRN PRN SLEEP (Reported) Allergies Coded Allergies: Latex (Verified Allergy, Intermediate, RASH, 09/07/12) Cyclobenzaprine (Verified Adverse Reaction, Intermediate, MUSCLE RELAXANTS CAUSED INC SPASM, 04/21/13) Past Medical History Medical History As per HPI. Social History * Smoker: Denies Alcohol: Denies Recent Travel/Sick Contacts: Denies: Recent sick contacts, Recent travel Review of Symptoms Constitutional: Reports: Fatigue, Lethargy, Malaise, Weakness Eyes: Denies: Pain, Vision change ENT: Denies: Ear Pain, Head Aches Skin: Denies: Lesions, Rash Pulmonary: Denies: Cough, Dyspnea Cardiovascular: Denies: Chest Pain, Orthopnea, Palpitations, Paroxysmal Noc. Dyspnea Gastrointestinal: Reports: Abdominal Pain, Denies: Nausea, Vomiting Genitourinary: Denies: Dysuria, Frequency Hematologic: Denies: Bruising Musculoskeletal: Reports: Arm Pain, Back Pain, Foot Pain, Joint Pain, Leg Pain , Muscle Pain, Neck Pain, Shoulder Pain Psych: Denies: Thoughts of Self Harm Physical Examination General Exam: Positive: Alert, Cooperative, No Acute Distress Eye Exam: Positive: Conjunctiva & lids normal, PERRLA ENT Exam: Positive: Atraumatic, Mucous membr. moist/pink Neck Exam: Positive: Supple Chest Exam: Positive: Clear to auscultation, Normal air movement Heart Exam: Positive: Rate Normal, Regular Rhythm Telemetry: Positive: No significant arrhythmia Abdomen Exam: Positive: BS Hypoactive, Soft, Negative: Tenderness Extremity Exam: Negative: Edema Psych Exam: Positive: Oriented x 3 Vital Signs Refer to ER documentation. Laboratory Data Labs 24H Laboratory Tests 2 08/09/16 08:45: Aspartate Amino Transf (AST/SGOT) 20, Alanine Aminotransferase (ALT/SGPT) 17, Alkaline Phosphatase 109, Total Bilirubin 0.3, Direct Bilirubin < 0.1, Albumin 4.1, Albumin/Globulin Ratio 1.11, Anion Gap 7L, Anisocytosis 1+, Atypical Lymphocytes 5, Calcium Level 9.4, Eosinophils (Manual) 1, Glomerular Filtration Rate > 60.0, Lymphocytes (Manual) 25, Monocytes (Manual) 8, Neutrophils 61, Platelet Estimate NORMAL, Poikilocytosis 1+, Total Protein 7.8 08/09/16 09:58: Lactic Acid (Sepsis) 0.9 CBC/BMP Laboratory Tests 08/09/16 08:45 Problems (1) Multiple sclerosis exacerbation Status: Chronic Response to Treatment: Progressing Discussed With: Patient Problem Specific Plan: Monitor Clinically Problem Text: Continue with home regimen of analgesics, add morphine IV for breakthrough pain. Recommend pain management consultation Thursday when services are available. He does follow as an outpatient with pain management, but states has not had follow up for over one month. (2) Intractable pain Status: Acute Discussed With: Patient Problem Specific Plan: Consult Specialist, Monitor Clinically Problem Text: As per above for MS. IV morphine for breakthrough, likely pain management consultation Thursday. (3) Neurogenic bladder Status: Chronic Discussed With: Patient Problem Specific Plan: Monitor Clinically Problem Text: Chronic captuo. Secondary to MS. Check UA/UC for possible UTI. (4) Hospital admission due to social situation Status: Acute Response to Treatment: Progressing Discussed With: Patient Problem Specific Plan: Consult Specialist Problem Text: field services director evaluation for possible placement. Plan / VTE VTE Prophylaxis Ordered?: Yes Plan / Urinary Catheter Urinary Catheter: Place Caputo Reason for insertion/continuin: Other-document below Plan Plan 36 yo male for intractable pain secondary to MS, chronic caputo/neurogenic bladder. IV morphine for breakthrough pain. IV fluids for hypernatremia. Pain consultation recommended. Chronic constipation requiring almost daily disimpaction. PFS consultation for possible placement. Diet: Continue Current Activity: Continue Current Therapy: PT, OT Pt and Family Services: Home Care, Other PFS Medications: Change to IV Diagnostics: Repeat Labs in AM, Obtain Cultures Anticipated Discharge: Home With Services, Assisted Living REGULO GARZON MD Aug 09, 2016 14:25
[2016-08-09 16:13] LABS: MAGNESIUM LEVEL 2.5 MG/DL (1.8-2.4); PHOSPHORUS LEVEL 3.9 MG/DL (2.5-4.9)
[2016-08-09 16:33] VITALS: BP 125/83
[2016-08-09] MEDS: GABAPENTIN 300 MG CAP PO SCH ×2 (17:02→20:39)
[2016-08-09] MEDS: oxyCODONE 5MG TAB PO PRN ×2 (17:03→23:32)
[2016-08-09] MEDS: levETIRAcetam 250MG TABLET (KEPPRA) PO SCH (20:39)
[2016-08-09 22:00] VITALS: BP 113/69
[2016-08-09] MEDS: zolPIDEM TARTRATE 5 MG TAB PO PRN (23:31)
[2016-08-10 06:00] VITALS: BP 128/65
[2016-08-10 06:19] LABS: BASO % 0.5 % (0.0-1.0); EOS # 0.3 K/mm3 (0.0-0.50); EOS % 3.3 % (0.0-3.0); LARGE UNSTAINED CELL # 0.2 K/mm3 (0.0-0.4); LARGE UNSTAINED CELL % 1.7 % (0.0-4.0); LYMPH # 3.5 K/mm3 (1.5-4.5); LYMPH % 40.4 % (24.0-44.0); MEAN CORPUSCULAR HEMOGLOBIN 29.1 pg (27.0-33.0); MEAN CORPUSCULAR HGB CONC 33.9 g/dl (32.0-36.5); MEAN CORPUSCULAR VOLUME 85.8 fl (80.0-96.0); MONO # 0.5 K/mm3 (0.0-0.8); MONO % 5.3 % (0.0-5.0); NEUTROPHILS # 4.3 K/mm3 (1.8-7.7); NEUTROPHILS % 48.8 % (36.0-66.0); PLATELET COUNT, AUTOMATED 355 k/mm3 (150-450); RED CELL DISTRIBUTION WIDTH 14.2 % (11.5-14.5); WHITE BLOOD COUNT 8.7 K/mm3 (4.0-10.0)
[2016-08-10 06:41] LABS: ANION GAP 7 MEQ/L (8-16); BLOOD UREA NITROGEN 20 MG/DL (7-18); CALCIUM LEVEL 8.7 MG/DL (8.5-10.1); CARBON DIOXIDE LEVEL 27 MEQ/L (21-32); CHLORIDE LEVEL 112 MEQ/L (98-107); CREATININE FOR GFR 0.67 MG/DL (0.70-1.30); GLOMERULAR FILTRATION RATE > 60.0 (>60); GLUCOSE, FASTING 78 MG/DL (70-105); SODIUM LEVEL 146 MEQ/L (136-145)
[2016-08-10] MEDS: GABAPENTIN 300 MG CAP PO SCH ×3 (09:42→21:47)
[2016-08-10] MEDS: levETIRAcetam 250MG TABLET (KEPPRA) PO SCH ×2 (09:42→21:47)
[2016-08-10] MEDS: oxyCODONE 5MG TAB PO PRN ×2 (09:43→19:01)
[2016-08-10] MEDS: ENOXAPARIN 40 MG/0.4 ML SYRINGE (J1650) SC SCH (09:43)
[2016-08-10] MEDS ORDERED: NALOXONE INJ 0.4 MG/1 ML VIAL (J2310) IV STA (13:37)
[2016-08-10 14:00] VITALS: BP 109/76
--- NOTE | 2016-08-10 14:32 | IPNPDOC ---
Text Note Date of Service The patient was seen on 08/10/16. 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 Objective: Vitals: (see below) General: No acute distress, laying comfortably in bed. HEENT: Moist mucous membranes. Neck: No JVD or lymphadenopathy Cardiac: RRR, No murmurs Pulm: Clear to auscultation b/l. No wheezing, rhonchi. Chronic Coburn Abd: NT /ND + BS Ext: No edema or cyanosis. Bilateral lower extremities contracted with chronic weakness. Distal pulses intact. Labs (see below) Images: MRI brain/Cervical spine pending. Assessment/Plan 1. Generalized weakness/pain and constipation - ? 2/2 opioid medications. Pt was very lethargic today. Discussed case with Dr. Boles - no need for MRI Brain/ cervical spine to r/o MS flare, and recommend to treat UTI with Abx and MS flare with Solumedrol 1g daily x 5 days. Apparently patient has been following up with Dr. Boles every 2-3 weeks for solumedrol as he is refusing maintenance meds. Pain management consult for today. 2. Constipation - started on bowel regimen. 2. Lung cavitary lesion/ bleb - chronic and follows up with pulmonary outpt. 4. History of MS, patient has been wheelchair bound for the past 10 years. 5. DVT prophylaxis SCDs DVT prophy - enoxaparin VS,Fishbone, I+O VS, Fishbone, I+O Laboratory Tests 08/10/16 05:19 Calcium Level 8.7, Red Blood Count 4.32, Mean Corpuscular Volume 85.8, Mean Corpuscular Hemoglobin 29.1, Mean Corpuscular Hemoglobin Concent 33.9, Red Cell Distribution Width 14.2, Neutrophils (%) (Auto) 48.8, Lymphocytes (%) (Auto) 40.4, Monocytes (%) (Auto) 5.3 H, Eosinophils (%) (Auto) 3.3 H, Basophils (%) ( Auto) 0.5, Neutrophils # (Auto) 4.3, Lymphocytes # (Auto) 3.5, Monocytes # (Auto ) 0.5, Eosinophils # (Auto) 0.3, Basophils # (Auto) 0.0 Vital Signs Date Time Temp Pulse Resp B/P Pulse Ox O2 Delivery O2 Flow Rate FiO2 08/10/16 11:14 16 08/10/16 06:00 97.4 64 128/65 96 Room Air I&O- Last 24 Hours up to 6 AM 08/10/16 05:59 Intake Total 600 ml Output Total 250 ml Balance 350 ml LLOYD FALCON MD Aug 10, 2016 14:32
[2016-08-10] MEDS: MEROPENEM INJ 1 GM in D5W MINI-BAG PLUS 100 ML IV SCH (16:12)
[2016-08-10] MEDS: MIRALAX *UNIT DOSE* 17GM PACKET PO SCH ×2 (16:12→21:48)
[2016-08-10] MEDS: DOCUSATE SODIUM 100 MG CAP PO SCH ×2 (16:12→21:47)
[2016-08-10] MEDS ORDERED: IBUPROFEN 600 MG TAB PO PRN (16:45)
[2016-08-10] MEDS ORDERED: oxyCODONE 5MG TAB PO PRN (16:45)
[2016-08-10] MEDS ORDERED: methylPREDNISolone INJ 125 MG/2 ML VIAL (J2930) IV ONE (18:30)
[2016-08-10] MEDS ORDERED: methylPREDNISolone 1,000 MG, VIAL MATE ADAPTER 1 EACH in D5W 250 ML IV ONE (20:00)
[2016-08-10 22:00] VITALS: BP_SYST 102; BP_SYST 110; BP_DIAS 58; BP_DIAS 67; BP_DIAS 68
[2016-08-11] MEDS: oxyCODONE 5MG TAB PO PRN ×4 (00:39→22:31)
[2016-08-11] MEDS: MEROPENEM INJ 1 GM in D5W MINI-BAG PLUS 100 ML IV SCH ×4 (00:39→23:54)
[2016-08-11] MEDS: zolPIDEM TARTRATE 5 MG TAB PO PRN (00:40)
[2016-08-11 06:00] VITALS: BP 105/71
[2016-08-11 06:43] LABS: BASO % 0.1 % (0.0-1.0); EOS % 0.7 % (0.0-3.0); LARGE UNSTAINED CELL % 0.4 % (0.0-4.0); LYMPH # 0.8 K/mm3 (1.5-4.5); LYMPH % 14.9 % (24.0-44.0); MEAN CORPUSCULAR HEMOGLOBIN 28.7 pg (27.0-33.0); MONO # 0.1 K/mm3 (0.0-0.8); MONO % 2.7 % (0.0-5.0); NEUTROPHILS # 4.1 K/mm3 (1.8-7.7); NEUTROPHILS % 81.2 % (36.0-66.0); PLATELET COUNT, AUTOMATED 338 k/mm3 (150-450); RED CELL DISTRIBUTION WIDTH 14.1 % (11.5-14.5)
[2016-08-11 06:59] LABS: ANION GAP 9 MEQ/L (8-16); BLOOD UREA NITROGEN 16 MG/DL (7-18); CALCIUM LEVEL 8.5 MG/DL (8.5-10.1); CARBON DIOXIDE LEVEL 26 MEQ/L (21-32); CHLORIDE LEVEL 108 MEQ/L (98-107); CREATININE FOR GFR 0.76 MG/DL (0.70-1.30); GLOMERULAR FILTRATION RATE > 60.0 (>60); GLUCOSE, FASTING 131 MG/DL (70-105); POTASSIUM SERUM 3.9 MEQ/L (3.5-5.1); SODIUM LEVEL 143 MEQ/L (136-145)
--- NOTE | 2016-08-11 08:16 | PHACANCOPD ---
PHARMACY VANCOMYCIN DOSING Pt Demographics Demographics Patient Age:36 , Weight:57.100 , Gender: male Adjusted Body Weight Date: 08/11/16, Adjusted Body Weight: [57.1] Kg Events Past 24 Hours Events Past 24 Hours: NO: Change in CrCl, Dialysis, Diuretic Therapy, Elevation in WBC, Fever, Other, Pending Diagnostics, Pending Procedures Vancomycin Vancomycin indication: COMPLICATED UTI Vancomycin Target Ranges: 15-20 mcg/ml Vancomycin Load Y/N: Yes Load Dose Date Time Vancomycin Load Dose: 1.25g Date: 08/11/16 Time: 09:00 Vancomycin Dose Date: 08/11/16. Current Vancomycin Dose: [1g q17h @17] Intermittent Dosing?: No Labs Labs Item Value Date Time White Blood Count 8.7 K/mm3 08/10/16 0519 White Blood Count 5.0 K/mm3 08/11/16 0620 Item Value Date Time Creatinine 0.67 MG/DL L 08/10/16518 Creatinine 0.76 MG/DL 08/11/16 06 Micro Microbiology 08/10/16 Blood Culture, Received Pending 08/10/16 Blood Culture, Received Pending 08/09/16 Urine Culture - Final, Complete Enterococcus Faecalis Pseudomonas Aeruginosa Creatinine Clearance Date:08/11/16. Creatinine Clearance: [150.4ml/min]. Pending Labs blood culture Assessment and Plan Maintaining Current Dose?: Yes Reason for dose change: No Dose Change Pharmacist Note Pharmacist Note Date: 08/11/16. Pharmacist note: Pt is a 36 y/o male being treated for complicated uti goal trough 15-20mcg/ml. Pt does have a history of treatment with vancomycin at [facility]. A 1.25g loading dose was initiated at 9 with maintenance consisting of 1g q8h starting at 17:00. A trough was scheduled for 8 :00 08/12. We will continue to monitor and adjust dose as needed. POLLO GUPTA PHARMACY Aug 11, 2016 08:16
[2016-08-11] MEDS ORDERED: VANCOMYCIN HCL 750 MG, VIAL MATE ADAPTER 1 EACH in D5W 250 ML IV ONE (09:00)
[2016-08-11] MEDS ORDERED: methylPREDNISolone INJ 125 MG/2 ML VIAL (J2930) IV SCH ×2 (09:00)
[2016-08-11] MEDS: levETIRAcetam 250MG TABLET (KEPPRA) PO SCH ×2 (09:26→22:30)
[2016-08-11] MEDS: DOCUSATE SODIUM 100 MG CAP PO SCH ×2 (09:27→22:30)
[2016-08-11] MEDS: MIRALAX *UNIT DOSE* 17GM PACKET PO SCH ×2 (09:27→22:30)
[2016-08-11] MEDS: ENOXAPARIN 40 MG/0.4 ML SYRINGE (J1650) SC SCH (09:27)
[2016-08-11] MEDS: GABAPENTIN 300 MG CAP PO SCH ×3 (09:27→22:30)
[2016-08-11] MEDS ORDERED: VANCOMYCIN HCL 500 MG in D5W MINI-BAG PLUS 100 ML IV ONE (10:00)
[2016-08-11] MEDS: methylPREDNISolone 1,000 MG, VIAL MATE ADAPTER 1 EACH in D5W 250 ML IV SCH (12:15)
--- NOTE | 2016-08-11 13:55 | IPNPDOC ---
Text Note Date of Service The patient was seen on 08/11/16. NOTE Subjective: Strength has improved today, although he is not back to his baseline. Pain well controlled. Objective: Vitals: (see below) General: No acute distress, laying comfortably in bed. HEENT: Moist mucous membranes. Neck: No JVD or lymphadenopathy Cardiac: RRR, No murmurs Pulm: Clear to auscultation b/l. No wheezing, rhonchi. Chronic Coburn Abd: NT /ND + BS Ext: No edema or cyanosis. Bilateral lower extremities contracted with chronic weakness. Distal pulses intact. Labs (see below) Images: MRI brain/Cervical spine pending. Assessment/Plan 1. Generalized weakness/pain and constipation - ? 2/2 opioid medications. Pt was very lethargic today. Discussed case with Dr. Boles - no need for MRI Brain/ cervical spine to r/o MS flare, and recommend to treat UTI with Abx and MS flare with Solumedrol 1g daily x 5 days. Apparently patient has been following up with Dr. Boles every 2-3 weeks for solumedrol as he is refusing maintenance meds. Pain management consult for today. 2. Chronic Coburn with complicated UTI; although this may be colonization, will treat given MS flare. 2. Constipation - started on bowel regimen. 2. Lung cavitary lesion/ bleb - chronic and follows up with pulmonary outpt. 4. History of MS, patient has been wheelchair bound for the past 10 years. 5. DVT prophylaxis SCDs DVT prophy - enoxaparin VS,Fishbone, I+O VS, Fishbone, I+O Laboratory Tests 08/11/16 06:20 Calcium Level 8.5, Red Blood Count 4.30, Mean Corpuscular Volume 87.0, Mean Corpuscular Hemoglobin 28.7, Mean Corpuscular Hemoglobin Concent 33.0, Red Cell Distribution Width 14.1, Neutrophils (%) (Auto) 81.2 H, Lymphocytes (%) (Auto) 14.9 L, Monocytes (%) (Auto) 2.7, Eosinophils (%) (Auto) 0.7, Basophils (%) ( Auto) 0.1, Neutrophils # (Auto) 4.1, Lymphocytes # (Auto) 0.8 L, Monocytes # ( Auto) 0.1, Eosinophils # (Auto) 0.0, Basophils # (Auto) 0.0 Vital Signs Date Time Temp Pulse Resp B/P Pulse Ox O2 Delivery O2 Flow Rate FiO2 08/11/16 10:14 17 08/11/16 06:00 98.2 69 105/71 97 Room Air I&O- Last 24 Hours up to 6 AM 08/11/16 06:00 Intake Total 2960 ml Output Total 1000 ml Balance 1960 ml LLOYD FALCON MD Aug 11, 2016 13:55
[2016-08-11 14:00] VITALS: BP 117/57
[2016-08-11] MEDS: diazePAM 10 MG TAB PO PRN (14:51)
[2016-08-11] MEDS: MOM 30ML SUSPENSION UDC PO PRN (17:19)
[2016-08-11] MEDS: VANCOMYCIN HCL 1,000 MG, VIAL MATE ADAPTER 1 EACH in D5W 250 ML IV SCH (17:19)
[2016-08-11 22:00] VITALS: BP 115/58
[2016-08-12] MEDS: VANCOMYCIN HCL 1,000 MG, VIAL MATE ADAPTER 1 EACH in D5W 250 ML IV SCH ×3 (01:07→18:05)
[2016-08-12 06:00] VITALS: BP 113/66
[2016-08-12] MEDS: MEROPENEM INJ 1 GM in D5W MINI-BAG PLUS 100 ML IV SCH ×3 (08:58→23:39)
[2016-08-12] MEDS: levETIRAcetam 250MG TABLET (KEPPRA) PO SCH ×2 (08:59→22:09)
[2016-08-12] MEDS: GABAPENTIN 300 MG CAP PO SCH ×3 (08:59→22:08)
[2016-08-12] MEDS: MIRALAX *UNIT DOSE* 17GM PACKET PO SCH ×2 (08:59→22:09)
[2016-08-12] MEDS: ENOXAPARIN 40 MG/0.4 ML SYRINGE (J1650) SC SCH (09:00)
[2016-08-12] MEDS: DOCUSATE SODIUM 100 MG CAP PO SCH ×2 (09:00→22:08)
[2016-08-12] MEDS: oxyCODONE 5MG TAB PO PRN ×2 (09:01→18:42)
[2016-08-12 09:07] LABS: BASO % 0.1 % (0.0-1.0); EOS % 0.1 % (0.0-3.0); LARGE UNSTAINED CELL # 0.2 K/mm3 (0.0-0.4); LARGE UNSTAINED CELL % 1.1 % (0.0-4.0); LYMPH # 1.4 K/mm3 (1.5-4.5); LYMPH % 10.5 % (24.0-44.0); MEAN CORPUSCULAR HEMOGLOBIN 28.3 pg (27.0-33.0); MEAN CORPUSCULAR HGB CONC 32.4 g/dl (32.0-36.5); MEAN CORPUSCULAR VOLUME 87.5 fl (80.0-96.0); MONO # 0.7 K/mm3 (0.0-0.8); MONO % 4.7 % (0.0-5.0); NEUTROPHILS # 11.5 K/mm3 (1.8-7.7); NEUTROPHILS % 83.5 % (36.0-66.0); PLATELET COUNT, AUTOMATED 338 k/mm3 (150-450); RED CELL DISTRIBUTION WIDTH 14.3 % (11.5-14.5); WHITE BLOOD COUNT 13.7 K/mm3 (4.0-10.0)
[2016-08-12] MEDS: diazePAM 10 MG TAB PO PRN (09:09)
[2016-08-12 09:22] LABS: ANION GAP 6 MEQ/L (8-16); BLOOD UREA NITROGEN 13 MG/DL (7-18); CALCIUM LEVEL 8.4 MG/DL (8.5-10.1); CARBON DIOXIDE LEVEL 31 MEQ/L (21-32); CHLORIDE LEVEL 105 MEQ/L (98-107); CREATININE FOR GFR 0.64 MG/DL (0.70-1.30); GLOMERULAR FILTRATION RATE > 60.0 (>60); GLUCOSE, FASTING 94 MG/DL (70-105); POTASSIUM SERUM 3.8 MEQ/L (3.5-5.1); SODIUM LEVEL 142 MEQ/L (136-145)
--- NOTE | 2016-08-12 11:08 | IPNPDOC ---
Date Seen The patient was seen on 08/12/16. Progress Note Hospitalist Progress Note Subjective: The patient states that the pain in his chest and abdomen has improved, but he is still having significant pain in his legs. He would like to get out of his bed today, and sits in his wheelchair. Objective: Physical Exam: Vitals: Vital Sign - Last 24 Hours 08/11/16 08/11/16 08/11/16 08/11/16 14:00 15:48 22:00 22:31 Temp 97.7 97.0 Pulse 82 78 Resp 18 18 16 18 B/P 117/57 115/58 Pulse Ox 97 95 O2 Delivery Room Air Room Air Room Air 08/11/16 08/12/16 08/12/16 23:12 06:00 09:01 Temp 97.2 Pulse 59 Resp 18 18 18 B/P 113/66 Pulse Ox 97 O2 Delivery Room Air Room Air General: Awake, alert, no acute distress HEENT: Moist mucous membranes CV: Regular rate and rhythm, no murmurs rubs or gallops Lungs: Clear to auscultation bilaterally, and no wheezes Abd: Soft, nontender, normal bowel sounds Extremities: No edema; chronically contracted Neuro: Alert and oriented 3, normal speech Labs and Imaging: Laboratory Tests 08/12/16 08:16 Calcium Level 8.4 L, Red Blood Count 4.36, Mean Corpuscular Volume 87.5, Mean Corpuscular Hemoglobin 28.3, Mean Corpuscular Hemoglobin Concent 32.4, Red Cell Distribution Width 14.3, Neutrophils (%) (Auto) 83.5 H, Lymphocytes (%) (Auto) 10.5 L, Monocytes (%) (Auto) 4.7, Eosinophils (%) (Auto) 0.1, Basophils (%) ( Auto) 0.1, Neutrophils # (Auto) 11.5 H, Lymphocytes # (Auto) 1.4 L, Monocytes # (Auto) 0.7, Eosinophils # (Auto) 0.0, Basophils # (Auto) 0.0 Assessment and Plan: 36-year-old male with MS, chronic pain, sacral ulcer, urinary retention/ neurogenic bladder requiring chronic Coburn, chronic constipation who was admitted with a multiple sclerosis exacerbation. 1. MS exacerbation: Continue home analgesics, as well as 5 days of steroids which was recommended by Dr. Bernabe. Evidently, the patient has been following up with Dr. Bernabe every couple weeks for Solu-Medrol as he is refusing maintenance medications.. Pain management consult was ordered yesterday, awaiting formal consult note at this time. 2. Chronic indwelling Coburn with complicated UTI: Although this may represent colonization, since we are currently treating the patient with Solu-Medrol for his MS flare, we will treat this with antibiotics. Urine culture grew enterococcus and Pseudomonas. The patient is currently on Merrem and drink. 3. Lung cavitary lesion/bleb: This is chronic, but the patient will need outpatient pulmonary follow-up. 4. Chronic constipation: Continue current bowel regimen. Patient has not had a bowel movement by tomorrow, may consider enema. DVT prophylaxis: Lovenox VS, I&O, 24H, Fishbone Vital Signs/I&O Vital Signs Date Time Temp Pulse Resp B/P Pulse Ox O2 Delivery O2 Flow Rate FiO2 08/12/16 09:01 18 08/12/16 06:00 97.2 59 113/66 97 Room Air I&O- Last 24 Hours up to 6 AM 08/12/16 05:59 Intake Total 3125 ml Output Total 1800 ml Balance 1325 ml Laboratory Data 24H LABS Laboratory Tests 2 08/12/16 08:16: Anion Gap 6L, White Blood Count 13.7H, Red Blood Count 4.36, Hemoglobin 12.3L, Hematocrit 38.1L, Mean Corpuscular Volume 87.5, Mean Corpuscular Hemoglobin 28.3 , Mean Corpuscular Hemoglobin Concent 32.4, Red Cell Distribution Width 14.3, Platelet Count 338, Neutrophils (%) (Auto) 83.5H, Lymphocytes (%) (Auto) 10.5L, Monocytes (%) (Auto) 4.7, Eosinophils (%) (Auto) 0.1, Basophils (%) (Auto) 0.1, Neutrophils # (Auto) 11.5H, Lymphocytes # (Auto) 1.4L, Monocytes # (Auto) 0.7, Eosinophils # (Auto) 0.0, Basophils # (Auto) 0.0, C-Reactive Protein, Quantitative < 0.30, Blood Urea Nitrogen 13, Creatinine 0.64L, Sodium Level 142 , Potassium Level 3.8, Chloride Level 105, Carbon Dioxide Level 31, Calcium Level 8.4L, Glomerular Filtration Rate > 60.0, Large Unclassified Cells # 0.2, Large Unclassified Cells % 1.1, Vancomycin Level Trough 12.7 CBC/BMP Laboratory Tests 08/12/16 08:16 Calcium Level 8.4 L, Red Blood Count 4.36, Mean Corpuscular Volume 87.5, Mean Corpuscular Hemoglobin 28.3, Mean Corpuscular Hemoglobin Concent 32.4, Red Cell Distribution Width 14.3, Neutrophils (%) (Auto) 83.5 H, Lymphocytes (%) (Auto) 10.5 L, Monocytes (%) (Auto) 4.7, Eosinophils (%) (Auto) 0.1, Basophils (%) ( Auto) 0.1, Neutrophils # (Auto) 11.5 H, Lymphocytes # (Auto) 1.4 L, Monocytes # (Auto) 0.7, Eosinophils # (Auto) 0.0, Basophils # (Auto) 0.0 Microbiology Microbiology 08/10/16 Blood Culture - Preliminary, Resulted No growth after 24 hours . All specim... 08/10/16 Blood Culture - Preliminary, Resulted No growth after 24 hours . All specim... 08/09/16 Urine Culture - Final, Complete Enterococcus Faecalis Pseudomonas Aeruginosa ABRIL JUARES Aug 12, 2016 11:08
[2016-08-12] MEDS: methylPREDNISolone 1,000 MG, VIAL MATE ADAPTER 1 EACH in D5W 250 ML IV SCH (12:38)
[2016-08-12 14:00] VITALS: BP 119/62
[2016-08-12] MEDS ORDERED: LIDOCAINE 2% 5ML JELLY UROJET TOP ONE (19:30)
[2016-08-12] MEDS ORDERED: LIDOCAINE 2% JELLY 30 ML TOP SCH (19:30)
[2016-08-12 22:00] VITALS: BP 117/59
[2016-08-12] MEDS: MOM 30ML SUSPENSION UDC PO PRN (22:09)
[2016-08-12] MEDS: zolPIDEM TARTRATE 5 MG TAB PO PRN (23:39)
[2016-08-13] MEDS: oxyCODONE 5MG TAB PO PRN ×4 (01:02→23:39)
[2016-08-13] MEDS: VANCOMYCIN HCL 1,000 MG, VIAL MATE ADAPTER 1 EACH in D5W 250 ML IV SCH ×3 (01:09→17:22)
[2016-08-13 06:00] VITALS: BP 131/79
--- NOTE | 2016-08-13 06:25 | CR ---
DATE OF CONSULTATION: 08/12/2016 REASON FOR CONSULTATION: Difficulty Caputo catheter placement. HISTORY OF PRESENT ILLNESS: This is a patient that has a neurogenic bladder due to multiple sclerosis. He had a silicone Caputo catheter Coude, #16-[place]. Today, it was ordered by the primary team to remove it. The nurses removed the Caputo catheter. They realized it was a Coude catheter #16-[place] in diameter that has been there for one month. They could not place another one because there is no Coude catheters latex free. For this reason, they consulted the urology team. PHYSICAL EXAM: The patient is awake, oriented times three. He has a neurological condition with actually difficulty voiding and emptying his bladder spontaneously. He is allergic to latex. At examination, he actually has a bladder that is palpated up to the umbilicus. There is no pain at all. At that moment in time, we decided to actually prep and drape the area of the genitalia. With digital rectal examination assistance we elevated the prostate, and passed a straight #18-[place] silicone caputo catheter into the bladder. We drained clear yellow urine. We then inflated the balloon to 10 mL. IMPRESSION/DIAGNOSIS: Difficulty passing a Caputo catheter in a patient with a neurogenic bladder due to multiple sclerosis. PLAN: Placement of a straight caputo silicone catheter #18-[place] that passed easily with digital rectal examination finger assistance elevating the prostate gland. An #18-[place] catheter with a balloon of 10 mL was placed correctly and left to gravity. Thank you very much for the consultation. The patient should keep the catheter and it should be exchanged every four weeks. DORA
[2016-08-13 07:47] LABS: BASO % 0.1 % (0.0-1.0); EOS # 0.1 K/mm3 (0.0-0.50); EOS % 0.7 % (0.0-3.0); LARGE UNSTAINED CELL # 0.2 K/mm3 (0.0-0.4); LARGE UNSTAINED CELL % 1.1 % (0.0-4.0); LYMPH # 1.4 K/mm3 (1.5-4.5); MEAN CORPUSCULAR HEMOGLOBIN 27.8 pg (27.0-33.0); MEAN CORPUSCULAR HGB CONC 31.9 g/dl (32.0-36.5); MEAN CORPUSCULAR VOLUME 87.2 fl (80.0-96.0); MONO # 0.7 K/mm3 (0.0-0.8); MONO % 5.1 % (0.0-5.0); NEUTROPHILS # 11.6 K/mm3 (1.8-7.7); NEUTROPHILS % 83.1 % (36.0-66.0); PLATELET COUNT, AUTOMATED 324 k/mm3 (150-450); RED CELL DISTRIBUTION WIDTH 14.6 % (11.5-14.5)
[2016-08-13 07:59] LABS: ANION GAP 8 MEQ/L (8-16); BLOOD UREA NITROGEN 17 MG/DL (7-18); CALCIUM LEVEL 8.1 MG/DL (8.5-10.1); CARBON DIOXIDE LEVEL 30 MEQ/L (21-32); CHLORIDE LEVEL 104 MEQ/L (98-107); CREATININE FOR GFR 0.65 MG/DL (0.70-1.30); GLOMERULAR FILTRATION RATE > 60.0 (>60); GLUCOSE, FASTING 99 MG/DL (70-105); POTASSIUM SERUM 4.3 MEQ/L (3.5-5.1); SODIUM LEVEL 142 MEQ/L (136-145)
[2016-08-13] MEDS: ENOXAPARIN 40 MG/0.4 ML SYRINGE (J1650) SC SCH (08:30)
[2016-08-13] MEDS: DOCUSATE SODIUM 100 MG CAP PO SCH ×2 (08:30→20:00)
[2016-08-13] MEDS: levETIRAcetam 250MG TABLET (KEPPRA) PO SCH ×2 (08:30→19:59)
[2016-08-13] MEDS: GABAPENTIN 300 MG CAP PO SCH ×3 (08:30→20:00)
[2016-08-13] MEDS: MIRALAX *UNIT DOSE* 17GM PACKET PO SCH ×2 (08:30→20:00)
[2016-08-13] MEDS: MEROPENEM INJ 1 GM in D5W MINI-BAG PLUS 100 ML IV SCH ×3 (10:09→23:32)
[2016-08-13] MEDS: methylPREDNISolone 1,000 MG, VIAL MATE ADAPTER 1 EACH in D5W 250 ML IV SCH (11:02)
--- NOTE | 2016-08-13 12:25 | IPN ---
DATE: 08/13/2016 This is a 36-year-old gentleman with known exacerbations of multiple sclerosis who follows with Dr. Boles who was admitted for 5 days of therapy for IV Solu-Medrol. He is currently on day #3. He denies chest pain, nausea, vomiting. No abdominal pain. Feels that his pain is a little more adequately controlled and he is requesting assistance with physical therapy with further transfer from bed to wheelchair today. OBJECTIVE: Temperature 98.7, pulse 96, respiratory rate 18, blood pressure (BP) 131/79, SPO2 is 98% on room air. General: The patient appears to be in no acute distress, is alert and oriented. HEENT: Unremarkable. Lungs: Clear. Heart: Regular rate and rhythm. Abdomen: Soft. Extremities: No edema, no calf tenderness. LABS: White count 14.0 - likely steroid demargination, hemoglobin is 12, platelets are 324,000. Sodium 142, potassium 4.3, chloride 104, bicarbonate 30, anion gap 8, BUN 17, creatinine 0.65, glucose 99. CRP is less than 0.3. Blood cultures negative times 48 hours times two. Urine culture previously positive for Enterococcus fecalis and Pseudomonas. ASSESSMENT/PLAN: 1. Multiple sclerosis exacerbation. Continue with analgesics. Will continue with 5 days worth of IV Solu-Medrol per Dr. Boles's recommendation. He is currently refusing maintenance therapy. Pain management consulted and awaiting formal note. 2. Chronic indwelling Coburn catheter with complicated urinary tract infection (UTI). Appreciate Dr. Amador's input. Continue on meropenem and vancomycin. 3. Cavitary lung lesion which is chronic in nature. Continue outpatient followup with pulmonology. 4. Chronic constipation. Continue on bowel regimen. 5. Deep vein thrombosis (DVT) prophylaxis with Lovenox. DISPOSITION: Anticipate home discharge in the next 2-3 days.
[2016-08-13 14:00] VITALS: BP 132/72
[2016-08-13] MEDS: MOM 30ML SUSPENSION UDC PO PRN (19:59)
[2016-08-13] MEDS: MORPHINE 2 MG/ML 1ML SYRINGE IV PRN (20:00)
[2016-08-13 22:00] VITALS: BP 133/60
[2016-08-13] MEDS: zolPIDEM TARTRATE 5 MG TAB PO PRN (23:40)
[2016-08-14] MEDS: VANCOMYCIN HCL 1,000 MG, VIAL MATE ADAPTER 1 EACH in D5W 250 ML IV SCH ×2 (00:08→08:59)
[2016-08-14 06:00] VITALS: BP 126/72
[2016-08-14 07:12] LABS: EOS % 0.4 % (0.0-3.0); LARGE UNSTAINED CELL # 0.2 K/mm3 (0.0-0.4); LARGE UNSTAINED CELL % 1.3 % (0.0-4.0); LYMPH # 1.8 K/mm3 (1.5-4.5); LYMPH % 14.9 % (24.0-44.0); MEAN CORPUSCULAR HEMOGLOBIN 28.2 pg (27.0-33.0); MEAN CORPUSCULAR HGB CONC 32.4 g/dl (32.0-36.5); MONO # 0.8 K/mm3 (0.0-0.8); MONO % 6.9 % (0.0-5.0); NEUTROPHILS # 9.2 K/mm3 (1.8-7.7); NEUTROPHILS % 76.6 % (36.0-66.0); PLATELET COUNT, AUTOMATED 326 k/mm3 (150-450); RED CELL DISTRIBUTION WIDTH 14.7 % (11.5-14.5)
[2016-08-14 07:35] LABS: ANION GAP 8 MEQ/L (8-16); BLOOD UREA NITROGEN 21 MG/DL (7-18); CALCIUM LEVEL 8.3 MG/DL (8.5-10.1); CARBON DIOXIDE LEVEL 30 MEQ/L (21-32); CHLORIDE LEVEL 102 MEQ/L (98-107); CREATININE FOR GFR 0.67 MG/DL (0.70-1.30); GLOMERULAR FILTRATION RATE > 60.0 (>60); GLUCOSE, FASTING 87 MG/DL (70-105); POTASSIUM SERUM 4.6 MEQ/L (3.5-5.1); SODIUM LEVEL 140 MEQ/L (136-145)
[2016-08-14] MEDS ORDERED: FLEET ENEMA PR PRN (08:30)
[2016-08-14] MEDS: MIRALAX *UNIT DOSE* 17GM PACKET PO SCH ×2 (08:58→21:23)
[2016-08-14] MEDS: GABAPENTIN 300 MG CAP PO SCH ×3 (08:58→21:24)
[2016-08-14] MEDS: levETIRAcetam 250MG TABLET (KEPPRA) PO SCH ×2 (08:59→21:23)
[2016-08-14] MEDS: oxyCODONE 5MG TAB PO PRN ×2 (08:59→17:15)
[2016-08-14] MEDS: ENOXAPARIN 40 MG/0.4 ML SYRINGE (J1650) SC SCH (09:00)
[2016-08-14] MEDS: DOCUSATE SODIUM 100 MG CAP PO SCH ×2 (09:00→21:24)
[2016-08-14] MEDS: MEROPENEM INJ 1 GM in D5W MINI-BAG PLUS 100 ML IV SCH (10:40)
[2016-08-14] MEDS: methylPREDNISolone 1,000 MG, VIAL MATE ADAPTER 1 EACH in D5W 250 ML IV SCH (11:39)
[2016-08-14 14:00] VITALS: BP 103/59
[2016-08-14] MEDS: AMPICILLIN 250 MG CAP PO SCH ×2 (17:15→21:23)
[2016-08-14] MEDS: MORPHINE 2 MG/ML 1ML SYRINGE IV PRN (21:30)
--- NOTE | 2016-08-14 21:35 | IPN ---
DATE: 08/14/2016 36-year-old gentleman seen at bedside resting comfortably. Denies any specific complaints overnight. We will give him a dose of Solu-Medrol today and tomorrow and hopefully discharge later tomorrow. No nausea, vomiting. Tolerating meals. OBJECTIVE: Temperature is 99.3, pulse 64, respiratory rate is 20, blood pressure 126/72, SPO2 is 96% on room air. GENERAL: The patient appears to be in no acute distress. Is alert, oriented. HEENT: Unremarkable. LUNGS: Clear. HEART: Regular rate and rhythm. ABDOMEN: Soft. EXTREMITIES: No edema or calf tenderness. LABORATORY DATA: White count 12.0, down from 14, hemoglobin is 12.1, platelets 326,000. Sodium 140, potassium 4.6, chloride 102, bicarbonate 30, anion gap 8, BUN 21, creatinine 0.67, glucose is 87, C-reactive protein is less than 0.30. ASSESSMENT AND PLAN: 1. Multiple sclerosis exacerbation. Continue with analgesics, today is day 4. Solu-Medrol, tomorrow is day 5. We will plan on discharging. 2. Chronic indwelling catheter. Appreciate Dr. Amador's assistance earlier. 3. Urinary tract infection with Enterococcus fecalis. He did have greater than 100,000 colony count. Pseudomonas was less than 40,000. We reports going to de-escalate his antibiotic therapy, discontinue meropenem, vancomycin and switch him to ampicillin today. 4. History of cavitary lesion in the lung, chronic in nature. Can followup outpatient with pulmonology. 5. Chronic constipation. Continue with the current bowel regimen. 6. Deep vein thrombosis (DVT) prophylaxis on Lovenox. DISPOSITION: Anticipate home discharge within the next 24-48 hours.
[2016-08-14 22:00] VITALS: BP 109/60
[2016-08-14] MEDS: diazePAM 10 MG TAB PO PRN (22:55)
[2016-08-15] MEDS: oxyCODONE 5MG TAB PO PRN ×2 (00:31→08:17)
[2016-08-15 06:00] VITALS: BP 108/57
[2016-08-15 06:25] LABS: BASO % 0.1 % (0.0-1.0); EOS % 0.4 % (0.0-3.0); LARGE UNSTAINED CELL # 0.2 K/mm3 (0.0-0.4); LARGE UNSTAINED CELL % 1.8 % (0.0-4.0); LYMPH # 2.1 K/mm3 (1.5-4.5); LYMPH % 20.2 % (24.0-44.0); MEAN CORPUSCULAR HEMOGLOBIN 28.3 pg (27.0-33.0); MEAN CORPUSCULAR HGB CONC 32.3 g/dl (32.0-36.5); MEAN CORPUSCULAR VOLUME 87.6 fl (80.0-96.0); MONO # 0.8 K/mm3 (0.0-0.8); MONO % 8.1 % (0.0-5.0); NEUTROPHILS # 6.6 K/mm3 (1.8-7.7); NEUTROPHILS % 69.5 % (36.0-66.0); PLATELET COUNT, AUTOMATED 322 k/mm3 (150-450); RED CELL DISTRIBUTION WIDTH 14.7 % (11.5-14.5); WHITE BLOOD COUNT 9.5 K/mm3 (4.0-10.0)
[2016-08-15 06:38] LABS: ANION GAP 8 MEQ/L (8-16); BLOOD UREA NITROGEN 22 MG/DL (7-18); CALCIUM LEVEL 8.2 MG/DL (8.5-10.1); CARBON DIOXIDE LEVEL 32 MEQ/L (21-32); CHLORIDE LEVEL 99 MEQ/L (98-107); CREATININE FOR GFR 0.58 MG/DL (0.70-1.30); GLOMERULAR FILTRATION RATE > 60.0 (>60); GLUCOSE, FASTING 96 MG/DL (70-105); POTASSIUM SERUM 4.4 MEQ/L (3.5-5.1); SODIUM LEVEL 139 MEQ/L (136-145)
[2016-08-15] MEDS ORDERED: IBUP60TA PO (07:45)
[2016-08-15] MEDS ORDERED: AMPI25CA PO (07:45)
[2016-08-15] MEDS: ENOXAPARIN 40 MG/0.4 ML SYRINGE (J1650) SC SCH (08:15)
[2016-08-15] MEDS: AMPICILLIN 250 MG CAP PO SCH (08:16)
[2016-08-15] MEDS: GABAPENTIN 300 MG CAP PO SCH (08:16)
[2016-08-15] MEDS: levETIRAcetam 250MG TABLET (KEPPRA) PO SCH (08:16)
[2016-08-15] MEDS: DOCUSATE SODIUM 100 MG CAP PO SCH (08:16)
[2016-08-15] MEDS: MIRALAX *UNIT DOSE* 17GM PACKET PO SCH (08:17)
--- NOTE | 2016-08-15 12:23 | DSES ---
DATE OF ADMISSION: 08/11/2016 DATE OF DISCHARGE: 08/15/2016 PRIMARY CARE PROVIDER: Dr. Fritz NEUROLOGIST: Dr. Boles CONSULTANTS: Pain management. PROCEDURES: None. COMPLICATIONS: None. ADMISSION/DISCHARGE DIAGNOSES: 1. Intractable back pain, which is acute on chronic and longstanding for this patient. 2. Multiple sclerosis exacerbation. 3. Neurogenic bladder. 4. Asthma. 5. Insomnia. BRIEF HOSPITAL COURSE: Mr. Faith is a 36-year-old male who presented to the emergency department with acute on chronic low back pain, generalized weakness, which appears to be worse from previously his normal state of health. He is however, wheelchair-bound and follows regularly with Dr. Boles. Dr. Boles's office was consulted from the emergency department and they did feel that the patient would benefit from 5 days of IV Solu-Medrol. He was placed on the general medical floor and did well, participated with physical therapy and on day of discharge was felt to be back to his baseline and did well with the Solu-Medrol. He will need appropriate followup with his primary care provider and Dr. Boles's office. PHYSICAL EXAMINATION: Temperature is 98.5, pulse 66, respiratory rate 20, blood pressure 108/57, SPO2 is 97% on room air. GENERAL: The patient appears to be in no acute distress. He is alert, pleasant. HEENT: Unremarkable. LUNGS: Clear. HEART: Regular rate and rhythm. ABDOMEN: Soft. EXTREMITIES: No edema or calf tenderness. LABORATORY DATA: White count 9.5, hemoglobin 12.2, platelets 322. Sodium 139, potassium 4.4, chloride 99, bicarb 32, anion gap 8, BUN is 22, creatinine 0.58, glucose 96. C-reactive protein is less than 0.30. Special studies on admission is CT of the abdomen and pelvis with no specific abnormalities. Discharge condition is good. DISPOSITION: Discharge home. DISCHARGE MEDICATIONS: - ampicillin 500 mg three times a day for 10 days for urinary tract infection - Ibuprofen 600 mg every 6 hours as needed - Ventolin inhaler was directed - Diazepam 10 mg three times a day as needed for anxiety - gabapentin 600 mg three times a day - Lactulose 30 grams daily - Keppra 750 mg twice a day - oxycodone 30 mg three times a day as needed - Ambien 5 mg at night as needed for sleep DISCHARGE INSTRUCTIONS: Discharge home. Activity as tolerated. Regular diet. Followup with Dr. Fritz in a week, Dr. Boles in 1-2 weeks. Seek medical attention if symptoms should worsen or progress. He voices understanding. Discharge took approximately 35 minutes.
== END 2016-08-15 09:38 | disposition home health service (06) | DRG 699 ==
LOC: EDBD 04:35 → M ED 06:03 → M ED INP 13:31 → UNDOADMOB 13:31 → M ED INP 16:34 → M MSPAV 16:34 → OBSVTOIN 08-11 14:22 → INTOOBSV 08-11 14:22 → M MSPAV 08-11 14:22
PROVIDERS: ADMIT Internal Medicine; ATTEND Hospitalist
DX: T83.511A Infection and inflammatory reaction due to indwelling urethral catheter, initial encounter (principal); E87.0 Hyperosmolality and hypernatremia; G35 Multiple sclerosis; G89.29 Other chronic pain; N39.0 Urinary tract infection, site not specified; R33.9 Retention of urine, unspecified; N31.9 Neuromuscular dysfunction of bladder, unspecified; K59.00 Constipation, unspecified; R53.1 Weakness; B95.2 Enterococcus as the cause of diseases classified elsewhere; K56.41 Fecal impaction; J43.9 Emphysema, unspecified; Y84.6 Urinary catheterization as the cause of abnormal reaction of the patient, or of later complication, without mention of misadventure at the time of the procedure; Z79.891 Long term (current) use of opiate analgesic; Z79.899 Other long term (current) drug therapy; Z91.040 Latex allergy status; Z88.8 Allergy status to other drugs, medicaments and biological substances; Z99.3 Dependence on wheelchair

== ENCOUNTER 2016-08-17 14:57 | Emergency (ER) | payer MEDICARE, OTHER ==
[~2016-08-17 14:57] MED LIST changes: +AMPI25CA PO; +IBUP60TA PO; +LACT20EL PO
[2016-08-17 15:09] VITALS: BP 101/58
[2016-08-17] MEDS ORDERED: KETAMINE HCL 200 MG/20 ML VIAL IV ONE (16:30)
[2016-08-17 16:57] LABS: BASO % 0.1 % (0.0-1.0); EOS # 0.2 K/mm3 (0.0-0.50); EOS % 1.9 % (0.0-3.0); LARGE UNSTAINED CELL # 0.1 K/mm3 (0.0-0.4); LARGE UNSTAINED CELL % 1.3 % (0.0-4.0); LYMPH # 3.4 K/mm3 (1.5-4.5); LYMPH % 30.5 % (24.0-44.0); MEAN CORPUSCULAR HEMOGLOBIN 28.2 pg (27.0-33.0); MEAN CORPUSCULAR HGB CONC 32.8 g/dl (32.0-36.5); MEAN CORPUSCULAR VOLUME 85.9 fl (80.0-96.0); MONO # 0.6 K/mm3 (0.0-0.8); MONO % 5.3 % (0.0-5.0); NEUTROPHILS # 6.7 K/mm3 (1.8-7.7); NEUTROPHILS % 60.9 % (36.0-66.0); PLATELET COUNT, AUTOMATED 384 k/mm3 (150-450); RED CELL DISTRIBUTION WIDTH 14.6 % (11.5-14.5)
[2016-08-17 17:19] LABS: ANION GAP 6 MEQ/L (8-16); BLOOD UREA NITROGEN 20 MG/DL (7-18); CALCIUM LEVEL 8.2 MG/DL (8.5-10.1); CARBON DIOXIDE LEVEL 30 MEQ/L (21-32); CHLORIDE LEVEL 107 MEQ/L (98-107); CREATININE FOR GFR 0.45 MG/DL (0.70-1.30); GLOMERULAR FILTRATION RATE > 60.0 (>60); GLUCOSE, FASTING 99 MG/DL (70-105); POTASSIUM SERUM 4.2 MEQ/L (3.5-5.1); SODIUM LEVEL 143 MEQ/L (136-145)
[2016-08-17] MEDS ORDERED: NS 1,000 ML IV ONE (17:45)
[2016-08-17] MEDS ORDERED: HYDROmorphone 2 MG TAB PO ONE (17:45)
== END 2016-08-17 21:46 | disposition home or self-care (01) ==
LOC: EDBD 14:57 → M ED 16:13
DX: G89.29 Other chronic pain (principal); G35 Multiple sclerosis; E86.0 Dehydration
CPT/HCPCS: 80048; 85025; 96361; 96374; 96375; 99283; J3360

== ENCOUNTER 2016-08-23 20:15 | Inpatient (IN) | payer MEDICARE, OTHER ==
[~2016-08-23] VITALS: Ht 185.4 cm; Wt 66.0 kg
[~2016-08-23 20:15] MED LIST changes: +AMPI250C59 PO; -AMPI25CA PO; +GABA-282 PO; -GABA300C3 PO
[2016-08-23] MEDS ORDERED: MORPHINE 4 MG/ML 1ML SYRINGE IV ONE (22:45)
[2016-08-23] MEDS ORDERED: METHOCARBAMOL 1,000 MG/10 ML VIAL (J2800) IV ONE (22:45)
[2016-08-23] MEDS ORDERED: NS 1,000 ML IV ONE (22:45)
[2016-08-23 23:27] LABS: BASO % 0.2 % (0.0-1.0); EOS # 0.2 K/mm3 (0.0-0.50); EOS % 1.5 % (0.0-3.0); LARGE UNSTAINED CELL # 0.2 K/mm3 (0.0-0.4); LARGE UNSTAINED CELL % 1.2 % (0.0-4.0); LYMPH % 16.9 % (24.0-44.0); MEAN CORPUSCULAR HEMOGLOBIN 27.8 pg (27.0-33.0); MEAN CORPUSCULAR HGB CONC 31.2 g/dl (32.0-36.5); MEAN CORPUSCULAR VOLUME 89.1 fl (80.0-96.0); MONO # 0.7 K/mm3 (0.0-0.8); MONO % 4.3 % (0.0-5.0); NEUTROPHILS # 12.5 K/mm3 (1.8-7.7); NEUTROPHILS % 75.9 % (36.0-66.0); PLATELET COUNT, AUTOMATED 397 k/mm3 (150-450); RED CELL DISTRIBUTION WIDTH 14.4 % (11.5-14.5); WHITE BLOOD COUNT 16.4 K/mm3 (4.0-10.0)
[2016-08-24] VITALS (7 sets, daily range): BP systolic 106–117; BP diastolic 55–69
[2016-08-24 00:06] LABS: ANION GAP 7 MEQ/L (8-16); BLOOD UREA NITROGEN 17 MG/DL (7-18); CALCIUM LEVEL 8.9 MG/DL (8.5-10.1); CARBON DIOXIDE LEVEL 30 MEQ/L (21-32); CHLORIDE LEVEL 105 MEQ/L (98-107); CREATININE FOR GFR 0.64 MG/DL (0.70-1.30); GLOMERULAR FILTRATION RATE > 60.0 (>60); GLUCOSE, FASTING 68 MG/DL (70-105); SODIUM LEVEL 142 MEQ/L (136-145)
[2016-08-24 00:10] LABS: POTASSIUM SERUM 4.5 MEQ/L (3.5-5.1)
[2016-08-24] MEDS ORDERED: ACETAMINOPHEN 325 MG TAB PO ONE (00:15)
[2016-08-24] MEDS ORDERED: MEROPENEM INJ 1 GM in D5W MINI-BAG PLUS 100 ML IV ONE (00:15)
[2016-08-24] MEDS ORDERED: IBUP60TA PO (01:10)
[2016-08-24] MEDS ORDERED: [UNRECOGNIZED DRUG - CODE] PO (01:14)
[2016-08-24] MEDS ORDERED: IBUPROFEN 600 MG TAB PO PRN (01:45)
[2016-08-24] MEDS ORDERED: ACETAMINOPHEN TAB 650MG DOSE (2X325MG) PO PRN (01:45)
[2016-08-24] MEDS ORDERED: ONDANSETRON 4MG/2ML VIAL (J2405) IV PRN (01:45)
[2016-08-24] MEDS ORDERED: ALBUTEROL 90 MCG/ACT 8GM HFA INHALER INH PRN (01:45)
[2016-08-24 01:46] LABS: ALBUMIN 3.2 GM/DL (3.2-5.2); ALBUMIN/GLOBULIN RATIO 0.91 (1.00-1.93); ALKALINE PHOSPHATASE 95 U/L (45-117); ALT/SGPT 22 U/L (12-78); AST/SGOT 20 U/L (15-37); BILIRUBIN,DIRECT < 0.1 MG/DL (0.0-0.2); BILIRUBIN,TOTAL 0.2 MG/DL (0.2-1.0); FERRITIN 61 NG/ML (26-388); MAGNESIUM LEVEL 2.1 MG/DL (1.8-2.4); PERCENT SATURATION 5.6 % (19.7-37.4); TOTAL IRON BINDING CAPACITY 378 UG/DL (250-450); TOTAL PROTEIN 6.7 GM/DL (6.4-8.2)
[2016-08-24 01:52] LABS: ERYTHROCYTE SEDIMENTATION RATE 52 mm/hr (0-15)
[2016-08-24] MEDS ORDERED: ISOVUE-370 76% 100ML VIAL (Q9967) As Ordered ONE (01:55)
[2016-08-24] MEDS: NS 1,000 ML IV SCH ×3 (02:26→20:23)
--- NOTE | 2016-08-24 03:10 | REPUSA ---
CT of the lumbar spine without contrast Clinical history: Pain. Technique: Multiple axial CT images were obtained through the lumbar spine without administration of contrast. Coronal and sagittal 3-D reconstructed images were also obtained. Findings: The lumbar vertebral bodies are in satisfactory positioning and alignment. No fractures or dislocatio ns are demonstrated. Intervertebral disc spaces are well-maintained. There is no evidence of facet hobson bluxation. The neural foramen appear grossly patent. The spinal canal demonstrates normal caliber and contour without evidence of spinal stenosis. The surrounding soft tissues are within normal limits. Impression: Unremarkable CT examination of the lumbar spine.
--- NOTE | 2016-08-24 03:10 | REPUSA ---
CT of the thoracic spine without contrast Clinical history: Pain. Technique: Multiple axial CT images were obtained through the thoracic spine without administration o f contrast. Coronal and sagittal 3-D reconstructed images were also obtained. Findings: The vertebral bodies are in satisfactory positioning and alignment. No fractures or dislocations are demonstrated. Intervertebral disc spaces are well-maintained. There is no evidence of facet subluxati on. The neural foramen appear grossly patent. The spinal canal demonstrates normal caliber and contou r without evidence of spinal stenosis. The surrounding soft tissues are within normal limits. Impression: No acute traumatic injury
--- NOTE | 2016-08-24 03:20 | REPUSA ---
CT of the abdomen and pelvis with contrast Clinical statement: Pain. Technique: Multiple axial CT images were obtained from the base of the lungs through the floor of the pelvis utilizing 5 mm axial slices after administration of nonionic intravenous contrast. Coronal an d sagittal reconstructions were also obtained. Comparison: 01/05/2016. Findings: Chest: The visualized lung bases are clear. Abdomen: The spleen, pancreas, kidneys, and adrenal glands are unremarkable. Numerous tiny gallstones are seen within the gallbladder. No pericholecystic inflammatory changes are seen however. The liver is enlarged, measuring 28.8 cm. The biliary ductal prominence has resolved. The aorta is within norm al limits. There is no evidence of abdominal lymphadenopathy or ascites. Pelvis: Moderate amount of stool fills the colon. The bowel is otherwise unremarkable, with no obstru ctive or inflammatory changes. The urinary bladder is catheterized. There appears to be circumferenti al bladder wall thickening measuring approximately 11 mm in diameter. A 1.4 cm stone is seen within t he right posterior urinary bladder. The other pelvic structures appear grossly intact. There is no ev idence of pelvic lymphadenopathy or ascites. Bones: There are no suspicious osseous abnormalities seen. Impression: 1. Hepatomegaly. 2. Cholelithiasis, without evidence of acute cholecystitis. 3. Moderate constipation. 4. Urinary bladder is catheterized and contracted, but there appears to be circumferential bladder wa ll thickening. A 1.4 cm stone is seen within the urinary bladder, and is grossly stable. If there is further clinical concern, cystoscopy could be performed.
[2016-08-24 03:58] LABS: BASO % 0.3 % (0.0-1.0); EOS # 0.2 K/mm3 (0.0-0.50); EOS % 1.7 % (0.0-3.0); LARGE UNSTAINED CELL # 0.2 K/mm3 (0.0-0.4); LARGE UNSTAINED CELL % 1.4 % (0.0-4.0); LYMPH # 3.7 K/mm3 (1.5-4.5); LYMPH % 26.5 % (24.0-44.0); MEAN CORPUSCULAR HEMOGLOBIN 28.2 pg (27.0-33.0); MEAN CORPUSCULAR HGB CONC 32.1 g/dl (32.0-36.5); MONO # 0.7 K/mm3 (0.0-0.8); MONO % 4.9 % (0.0-5.0); NEUTROPHILS # 8.7 K/mm3 (1.8-7.7); NEUTROPHILS % 65.2 % (36.0-66.0); PLATELET COUNT, AUTOMATED 410 k/mm3 (150-450); RED CELL DISTRIBUTION WIDTH 14.5 % (11.5-14.5); WHITE BLOOD COUNT 13.3 K/mm3 (4.0-10.0)
[2016-08-24 04:10] LABS: VENOUS BASE EXCESS 1.9 (-2.0-2.0); VENOUS PARTIAL PRESSURE CO2 42.6 mmHg (38.0-50.0); VENOUS PARTIAL PRESSURE O2 73.3 mmHg (30.0-50.0); VENOUS STANDARD HCO3 26.1 MEQ/L
[2016-08-24 04:20] LABS: ANION GAP 7 MEQ/L (8-16); BLOOD UREA NITROGEN 13 MG/DL (7-18); CALCIUM LEVEL 8.1 MG/DL (8.5-10.1); CARBON DIOXIDE LEVEL 27 MEQ/L (21-32); CHLORIDE LEVEL 109 MEQ/L (98-107); CREATININE FOR GFR 0.56 MG/DL (0.70-1.30); GLOMERULAR FILTRATION RATE > 60.0 (>60); GLUCOSE, FASTING 80 MG/DL (70-105); POTASSIUM SERUM 3.9 MEQ/L (3.5-5.1); SODIUM LEVEL 143 MEQ/L (136-145)
[2016-08-24] MEDS ORDERED: oxyCODONE 5MG TAB PO ONE (04:45)
--- NOTE | 2016-08-24 05:19 | HPE ---
DATE OF ADMISSION: 08/24/2016 TIME PATIENT WAS SEEN: 01:00. PRIMARY CARE PROVIDER: Dr. Ernie Diane CHIEF COMPLAINT: Severe back pain that radiates to the leg. HISTORY OF PRESENT ILLNESS: 36-year-old male with past medical history of intractable back pain, multiple sclerosis (MS), urinary retention with neurogenic bladder and chronic indwelling Coburn, frequent urinary tract infections, malnutrition, chronic constipation, insomnia and sacral ulcer presented with severe back pain that got worse during the day. Per patient, it was 9/10, starting at mid back and radiated to bilateral legs. It has been worse than his normal days. Patient was recently here between August 11 and August 15, received five days of IV Solu-Medrol as recommended by neurology for his MS flareup. Patient stated that he did not feel any better after the Solu-Medrol and the patient stated that the pain felt like it was stabbing like and he was unable to feel his legs or his which appears to be his baseline. However, the pain has been getting worse. In addition, the patient has a fever of 100.8 in the emergency room. Patient denies any discomfort any where else besides some lower abdominal pain. However, patient denies any nausea or vomiting, any chest pain, trouble breathing, Denies any sick contacts. ALLERGIES: Patient is allergic is CYCLOBENZAPRINE, which makes him spasm, and LATEX gives him a rash. HOME MEDICATIONS: Includes: - albuterol two puffs inhalation every four hours as needed - diazepam 10 mg one tablet by mouth three times a day as needed - gabapentin 600 mg one tablet by mouth three times a day - ibuprofen 600 mg one tablet by mouth every six hours as needed - levetiracetam (Keppra) 750 mg one tablet by mouth twice a day - oxycodone extended-release 36 mg by mouth twice a day - Ambien 5 mg by mouth at bedtime as needed for sleep PAST MEDICAL HISTORY: 1. Intractable back pain. 2. MS. 3. Sacral ulcer. 4. Urinary retention with neurogenic bladder and chronic indwelling Coburn. 5. Malnutrition. 6. Chronic constipation. 7. Insomnia. PAST SURGICAL HISTORY: None. SOCIAL HISTORY: Patient lives by himself has a home care worker come to help him six hours a day. Denies any smoking, drinking, or recreational drug use. FAMILY HISTORY: MS runs in his family including his mother. REVIEW OF SYSTEMS: Patient admits to weight loss over time at least 50 pounds over the past several years. Denies any recent traveling. Admits to recent admission in the hospital. Denies any fever or chills; however, patient has a measured fever of 100.8 in the emergency room. HEENT: Denies any changes with vision, smell, hearing, or taste. CARDIOVASCULAR: Denies any chest pain or trouble breathing. PULMONARY: Denies any trouble breathing. ABDOMEN: Admits to some lower abdominal discomfort. Denies any nausea, vomiting. Admits to chronic constipation. Denies any diarrhea. Patient's last bowel movement patient stated was about three weeks ago when he had an enema, which he receives roughly once every three weeks. MUSCULOSKELETAL: Patient has chronic back pain. Last time patient had back pain was 08/11/2016. Patient also is in wheelchair due to MS. ENDOCRINE: Denies any heat or cold intolerance, any diabetes. HEMATOLOGY/ONCOLOGY: Denies any easy bruising or any bleeding any where. NEUROLOGICAL: Patient has MS. Cannot feel his lower extremities. Does not move his arms well either. Could not feel his stool. However, patient does not have any trouble swallowing. Admits to increased pain in his back that radiates to bilateral lower extremities. However, no other change of sensation. PSYCH: Patient does feel depressed; however, he refuses to take any medication for it. PHYSICAL EXAMINATION: VITAL SIGNS: Temperature at 8:25 p.m. last night was 100.8, repeat temperature was 98.6 during the interview, pulse 78, respirations 18, blood pressure 103/59, oxygen was satting at 98% on room air. GENERAL: Patient is cachectic looking young male who was alert, awake, oriented times three, appears to be in mild distress lying comfortably in bed with head elevated at 45 degree angle. Patient also appears to be having paralysis of bilateral lower extremities. HEENT: Normocephalic, atraumatic. Extraocular motors are intact. Mucous membranes moist. NECK: Supple. No neck lymphadenopathy. CARDIOVASCULAR: Regular rate and rhythm, S1, S2. No murmurs, rubs, or gallops. LUNGS: Clear to auscultation bilaterally. No wheezes, rales, or rhonchi. ABDOMEN: Mildly tender to palpation in the lower abdomen and suprapubic region. Otherwise, no peritoneal signs. No ecchymosis. Positive bowel sounds. EXTREMITIES: No edema, clubbing, or cyanosis. However, patient was unable to move the lower extremities, was moving upper extremities against gravity. Strength was poor in bilateral upper extremities. Patient only has minimal gripping strength. SKIN: Warm and dry. NEURO: Cranial nerves II-XII intact. Patient has MS. Patient does not have sensation in the lower extremities. Patient has minimal feeling in the feet bilaterally. He was unable to move his lower extremities. Patient was only moving upper extremities against gravity. Gripping strength was poor. Speech appears to be sluggish. However, no asymmetry on examination. LABS: WBC 16.4, hemoglobin 12.6, hematocrit 40.3 with platelet count of 397. Sodium 142, potassium 4.5, chloride 105, bicarbonate 30, BUN 17, creatinine 0.64, GFR greater than 60, calcium 8.9, magnesium 2.1, iron 21, TIBC 378, transferrin percentage was 5.6, total bilirubin was 0.2, direct bilirubin 0.1, AST 20, ALT 22, alkaline phosphatase 95, CRP was 1.89, total protein 6.7, albumin 3.2, B12 and folate are pending. Patient's urinalysis appears to be cloudy, 1+ protein, 3+ leukocyte esterase, WBC was too many to count, 82 RBC, 2+ bacteria, small amorphous sediment. Patient had a KUB in the emergency room today. Preliminary result is pending, but it does show constipation. CT of abdomen and pelvis and also CT of the lumbar and thoracic spine are pending. ASSESSMENT AND PLAN: 36-year-old male with past medical history of intractable back pain, multiple sclerosis (MS), asthma, sacral ulcer, urinary retention with neurogenic bladder and chronic Coburn, malnutrition, chronic constipation, insomnia, presented with sepsis likely secondary to urinary tract infection likely secondary to complicated urinary tract infection from indwelling Coburn. He has a WBC of 16.4, temperature 100.8 as well as he was tachycardic with a pulse of 100. Patient received meropenem 1 gram times one. His last urinalysis does show Enterococcus E. Coli which was sensitive to meropenem. At this point, we will continue meropenem one gram every eight hours and followup with a urine culture as well as ESR and CRP. 2. Intractable back pain [id number]. Patient was recently hospitalized on August 11 for intractable back pain. At that time, he was believed to be secondary to MS flareup. However, at this time, patient appears to be septic. We will treat patient's sepsis first and continue to monitor for patient's symptoms. 3. Normocytic anemia with MCV of 89, hemoglobin of 12.6. Patient does appear to be severely iron deficient with a iron of 21, TIBC of 378, transferrin percentage was only 4.6, and ferritin level was only 61. We will obtain fecal occult blood. Due to patient being septic, we will start supplementation after patient improves, possibly outpatient. Continue to monitor. B12 and folate is pending as well. 4. MS. Patient did receive five days of IV Solu-Medrol. According to past medical records patient refused immunotherapy which could have helped him in the past. Patient currently follows at neurology with Dr. Boles. 5. Chronic asthma. Continue home nebulizer. 6. Sacral ulcer. Appears to be healed. Continue to monitor. We will turn patient every two hours due to patient could not move himself. 7. Urinary retention with neurogenic bladder and chronic Coburn and also frequent urinary tract infection. Continue to monitor. Continue antibiotics. Treat patient's sepsis. 8. Malnutrition. We will supplement patient with Ensure. 9. Chronic constipation. We will also consider post enema once patient's CT of abdomen and pelvis has been done. 10. Insomnia. Continue home Ambien. 11. Deep vein thrombosis (DVT) prophylaxis. Continue subcutaneous Lovenox. DISPOSITION: Patient is here for intractable back pain, however, he was found to be in sepsis, due to complicated urinary tract infection. We will followup with CT abdomen and pelvis as well, and also CT of lumbar and thoracic spine. Continue Ambien, antibiotics, and patient will possibly need enema for constipation. Patient has been discussed with attending doctor, Dr. Arriaza.
[2016-08-24] MEDS: GABAPENTIN 300 MG CAP PO SCH ×3 (08:18→20:25)
[2016-08-24] MEDS: SENOKOT S TAB PO SCH ×2 (08:18→20:23)
[2016-08-24] MEDS: MEROPENEM INJ 1 GM in D5W MINI-BAG PLUS 100 ML IV SCH ×3 (08:18→23:52)
[2016-08-24] MEDS: levETIRAcetam 250MG TABLET (KEPPRA) PO SCH ×2 (08:18→20:24)
[2016-08-24] MEDS: ENOXAPARIN 30 MG/0.3 ML SYR (J1650) SC SCH (08:19)
[2016-08-24] MEDS: oxyCODONE 40 MG CR TAB PO SCH ×2 (08:20→20:24)
--- NOTE | 2016-08-24 08:54 | REP ---
Clinical: Fever and abdominal distension. Technique: Supine view of the chest, abdomen and pelvis along with cross-table lateral view of the abdomen. Findings: Frontal view of the chest demonstrates chronic stable changes. Supine and cross-table lateral views of the abdomen and pelvis demonstrate nonspecific bowel gas pattern without evidence for obstruction or perforation. Fecal stasis and constipation cannot be excluded. No organomegaly. No abnormal calcifications. Skeletal structures are intact. Impression: Nonspecific bowel gas pattern. Possible fecal stasis and constipation. Signed by Brandon Doss MD 08/24/2016 08:45 A
[2016-08-24] MEDS: ALBUTEROL SULFATE 2.5 MG/0.5 ML INH NEB SOLN NEB SCH ×2 (09:18→16:36)
[2016-08-24] MEDS ORDERED: MOM 30ML SUSPENSION UDC PO PRN (09:45)
--- NOTE | 2016-08-24 11:22 | IPN ---
DATE: 08/24/2016 SUBJECTIVE: The patient tells me that he has continued back pain with back spasm as well as left extremity spasticity. He did come in with subjective fevers at home. He tells me that he does not feel significantly different this morning. Denies chest pain, shortness of breath, nausea, vomiting, or diarrhea. OBJECTIVE: VITAL SIGNS: T-max 100.8, temperature current 99, pulse 75, respiratory rate 18, blood pressure 110/55, oxygen saturation 95% on room air. GENERAL: He is a frail, young, pale, man lying flat in bed at 30-degree angle. He does not appear to be in any acute distress. He is somewhat disheveled. HEENT: He has moist mucous membranes. No elevation of central venous pressure (CVP). CARDIOVASCULAR: S1, S2, regular. RESPIRATORY EXAM: Clear. ABDOMEN: Diffusely tender to palpation. EXTREMITIES: No clubbing, cyanosis, or edema. LABORATORY STUDIES: WBC 13.3 down from 16.4, hemoglobin 11.6, hematocrit 36.2, platelet count 410. Chemistry panel: Sodium 143,potassium 3.9, chloride 109, bicarbonate 27, BUN 13, creatinine 0.5. Folate and B12 levels are pending. UA was cloudy, 1+ protein, 3+ leukocyte esterase, too numerous to count WBC, 82 RBC, 2+bacteria. Microbiology: Blood cultures are pending. No urine culture has been drawn. IMAGING: Patient had an abdominal x-ray that revealed nonspecific gas pattern, possible fecal stasis with constipation. Patient had thoracic spine CT that revealed no traumatic injury. A lumbar spine CT was unremarkable CT scan. Abdominal CT that revealed hepatomegaly, cholelithiasis without evidence of acute cholecystitis and moderate constipation and a contracted urinary bladder with circumferential wall thickening and a 1.4 cm stone that is grossly stable. ASSESSMENT AND PLAN: This is a 36-year-old man who was readmitted following a recent discharge after being treated for flare of multiple sclerosis (MS) as well as urinary tract infection. 1. Urinary tract infection. The patient was recently discharged approximately 12 days ago. At the time he was discharged, it was 10 days of ampicillin. Now, upon completing his course, his symptoms did recur quickly. His back spasms increased and he started have subjective fevers prompting him to return to the emergency room. During his last stay, Dr. Perry exchange his Coburn catheter. I did reach out to Dr. Conti today who suggested that the catheter should be changed once again even though it has not been four weeks because he previously was using an 18 Turkish Silicone Coburn Coude catheter. His urinalysis (UA) is not surprisingly looking abnormal given his previous catheter had been there for [address] Conti suggested obtaining a repeat culture from the new catheter, which we will collect after his catheter has been changed. Given his baseline history of Enterococcus and Pseudomonas in the past, for the time being he is on meropenem which appears to cover both organisms. Given that he has had so many recurrences, I did bring up the possibility of suprapubic catheter, which he adamantly refused. The suprapubic catheter could be reversed or if it would actually decrease the frequency of his urinary tract infection. The patient continues to have urinary tract infections exacerbating his multiple sclerosis, he may benefit from infectious disease consultation. 2. Multiple sclerosis. Likely acute exacerbation secondary to acute febrile illness. For the time being, we will continue with Neurontin, Keppra, OxyContin and Valium. 3. Sacral ulcers. Continue with chronic wound care. 4. Chronic constipation. Patient is on narcotic pain medication. We will provide him with bowel regimen. 5. Normocytic anemia. Followup Dr. Valdivia's suggested started the patient on iron after his acute infection is resolved. 6. Chronic asthma. Continue home nebulizers. 7. Protein calorie malnutrition. Continue with Ensure. 8. Insomnia. Continue Ambien. 9. Deep vein thrombosis (DVT) prophylaxis. The patient is on Lovenox. DISPOSITION: The patient is likely medically stable for transfer to the medical-surgical floor.
[2016-08-25] MEDS: zolPIDEM TARTRATE 5 MG TAB PO PRN ×2 (00:03→20:32)
[2016-08-25] MEDS: ALBUTEROL SULFATE 2.5 MG/0.5 ML INH NEB SOLN NEB SCH ×3 (00:06→15:03)
[2016-08-25 05:43] LABS: BASO % 0.2 % (0.0-1.0); EOS # 0.2 K/mm3 (0.0-0.50); EOS % 2.6 % (0.0-3.0); LARGE UNSTAINED CELL # 0.1 K/mm3 (0.0-0.4); LARGE UNSTAINED CELL % 1.7 % (0.0-4.0); LYMPH # 3.3 K/mm3 (1.5-4.5); LYMPH % 42.5 % (24.0-44.0); MEAN CORPUSCULAR HEMOGLOBIN 28.4 pg (27.0-33.0); MEAN CORPUSCULAR HGB CONC 32.4 g/dl (32.0-36.5); MEAN CORPUSCULAR VOLUME 87.8 fl (80.0-96.0); MONO # 0.5 K/mm3 (0.0-0.8); MONO % 6.6 % (0.0-5.0); NEUTROPHILS # 3.6 K/mm3 (1.8-7.7); NEUTROPHILS % 46.4 % (36.0-66.0); PLATELET COUNT, AUTOMATED 322 k/mm3 (150-450); RED CELL DISTRIBUTION WIDTH 14.3 % (11.5-14.5); WHITE BLOOD COUNT 7.6 K/mm3 (4.0-10.0)
[2016-08-25 05:54] LABS: ANION GAP 8 MEQ/L (8-16); BLOOD UREA NITROGEN 12 MG/DL (7-18); CALCIUM LEVEL 8.2 MG/DL (8.5-10.1); CARBON DIOXIDE LEVEL 28 MEQ/L (21-32); CHLORIDE LEVEL 106 MEQ/L (98-107); CREATININE FOR GFR 0.58 MG/DL (0.70-1.30); GLOMERULAR FILTRATION RATE > 60.0 (>60); GLUCOSE, FASTING 87 MG/DL (70-105); POTASSIUM SERUM 3.7 MEQ/L (3.5-5.1); SODIUM LEVEL 142 MEQ/L (136-145)
[2016-08-25 06:00] VITALS: BP 114/58
[2016-08-25] MEDS: BISACODYL 5 MG TAB PO PRN (08:48)
[2016-08-25] MEDS: levETIRAcetam 250MG TABLET (KEPPRA) PO SCH ×2 (08:48→20:32)
[2016-08-25] MEDS: MEROPENEM INJ 1 GM in D5W MINI-BAG PLUS 100 ML IV SCH ×2 (08:49→16:26)
[2016-08-25] MEDS: GABAPENTIN 300 MG CAP PO SCH ×3 (08:49→20:32)
[2016-08-25] MEDS: SENOKOT S TAB PO SCH ×2 (08:49→20:33)
[2016-08-25] MEDS: oxyCODONE 40 MG CR TAB PO SCH ×2 (08:51→20:33)
[2016-08-25] MEDS: ENOXAPARIN 30 MG/0.3 ML SYR (J1650) SC SCH (08:51)
--- NOTE | 2016-08-25 13:02 | IPN ---
DATE OF EXAM: 08/25/2016 SUBJECTIVE: The patient reports that he feels the same as he did yesterday. He denies any specific complaints. He tells me that they did change his catheter yesterday. He denies chest pain, shortness of breath, fevers, chills, nausea, vomiting, or diarrhea. OBJECTIVE: VITAL SIGNS: Temperature current 97.3, pulse 67, respiratory rate 17, blood pressure 114/58, oxygen saturation 97% on room air. GENERAL: He is a pale man, middle aged, lying flat in bed, in no distress, sleeping peacefully when I enter the room. Easily arousable to verbal stimuli. HEENT: Cranial nerves II through XII are grossly intact. He has moist mucous membranes. No elevation of central venous pressure (CVP). CARDIOVASCULAR: S1, S2, regular. RESPIRATORY EXAM: Clear. ABDOMINAL EXAM: Benign. He has numerous tattoos. EXTREMITIES: No clubbing, cyanosis, or edema. He does exhibit spontaneously tonic clonic movements of the lower extremities during my exam. LABORATORY STUDIES: WBC 7.6, hemoglobin 11.1, hematocrit 34.2, platelet count 322. Chemistry panel: Sodium 142,potassium 3.7, chloride 106, bicarbonate 28, BUN 12, creatinine 0.5. Microbiology: Urine culture is pending from a new clean catheter. Blood cultures are negative thus far. No new imaging. ASSESSMENT/PLAN: This is a 36-year-old man who was readmitted following a recent discharge after being treated for flare of multiple sclerosis (MS) as well as urinary tract infection. 1. Urinary tract infection. Recently discharged approximately 12 days ago with a quick recurrence of his symptoms two days after completing his course if ampicillin. He is now on meropenem. I did speak with Dr. Conit who suggested a catheter exchange and a repeat urine culture which has been collected and completed. I have contacted Dr. Zepeda of infectious disease to help for the duration of therapy and also to assess the benefits of receiving a suprapubic catheter. The patient does have frequent urinary tract infections which would lead to MS flares. 2. Multiple sclerosis. Likely pseudo exacerbation secondary to acute febrile illness. We will continue him on Neurontin, Keppra, OxyContin and Valium. He was having significant pain this morning and as such I will place a pain management consult. He is well known to their service. 3. Sacral ulcers. Continue with chronic wound care. 4. Chronic constipation. Patient is on narcotic pain medication. Continue to provide bowel regimen. 5. Normocytic anemia. Will consider starting iron supplementation prior to discharge after his acute infection is resolved. 6. Chronic asthma. Continue home nebulizers. 7. Protein calorie malnutrition. Continue with Ensure. 8. Insomnia. Continue with Ambien. 9. Deep vein thrombosis (DVT) prophylaxis. The patient is on Lovenox. DISPOSITION: Physical therapy (PT) states the patient is not safe. He wishes to have increased stretching and activity with PT. He is a DO NOT RESUSCITATE.
[2016-08-25 14:00] VITALS: BP 114/66
[2016-08-25] MEDS: NS 1,000 ML IV SCH ×2 (15:19→20:34)
[2016-08-25] MEDS ORDERED: FLEET ENEMA PR PRN (15:45)
[2016-08-25] MEDS ORDERED: FLEET ENEMA PR ONE (16:15)
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
[2016-08-25] MEDS: oxyCODONE 5MG TAB PO PRN (20:32)
[2016-08-25] MEDS: LACTOBACILLUS ACIDOPHILUS CAP (BACID) PO SCH (20:32)
[2016-08-25 22:00] VITALS: BP 119/67
--- NOTE | 2016-08-25 23:33 | CR ---
DATE OF CONSULTATION: 08/25/2016 REASON FOR CONSULTATION: I was asked to consult by hospitalist for evaluation of recurrent urinary tract infection and sepsis. HISTORY OF PRESENT ILLNESS: Mr. Faith is a 36-year-old gentleman with a history of intractable back pain, multiple sclerosis, urinary retention and neurogenic bladder with chronic indwelling Coburn catheter. The patient has recurrent bladder infections and was hospitalized on 08/09, discharged on 08/15 after he was treated for urinary tract infection with culture positive for Enterococcus faecalis and Pseudomonas. He was treated with vancomycin and meropenem for five days until day of discharge when he was given ampicillin 500 mg three times a day for 10 days. The patient was back in the emergency room on 08/17 with severe back pain and discharged home. He came back on the 08/24 with severe back pain, fever of 100.8, lower back pain and muscle spasm radiating to his legs. The patient feels like his bladder infection was never completely treated last admission. He states that usually when he has a bladder infection, he has a lot of spasm down to his legs. He had no nausea, vomiting, chest pain, shortness of breath. ALLERGIES: CYCLOBENZAPRINE, LATEX. PAST MEDICAL HISTORY: Chronic low back pain, multiple sclerosis, history of sacral decubitus ulcer that is healed, urinary retention with neurogenic bladder, chronic Coburn catheter and recurrent UTI, malnutrition, chronic constipation and insomnia. PAST SURGICAL HISTORY: Negative. SOCIAL HISTORY: Lives by himself. He has a caregiver who comes to help him six hours a venessa. FAMILY HISTORY: Multiple sclerosis in his mother. REVIEW OF SYSTEMS: He does have weight loss of 50 pounds in the past years. He denies any nausea, vomiting or abdominal pain. He has severe low back pain radiating to both legs. He has generalized weakness of upper or lower extremities and lot of muscle spasms. MEDICATIONS: - Ambien 5 mg by mouth at bedtime as needed - Priobiotic one tablet by mouth twice a day - Dulcolax 5 mg twice a day as needed - Fleet's enema as needed. The patient asked for an order today from myself. - Keppra 750 mg by mouth twice a day - Lovenox 30 mg subcu daily - milk of magnesia as needed - gabapentin 600 mg by mouth three times a day - OxyContin 40 mg by mouth twice a day - albuterol nebs every eight hours as needed - oxycodone 30 mg by mouth every eight hours as needed - Senokot one tablet by mouth twice a day - diazepam 10 mg by mouth three times a day as needed for anxiety - Zofran 4 mg IV as needed LABORATORY DATA: White count on 08/17 was 11 and 0n 08/23 was 16.4 the day of admission, down to 13.3 and currently 7.6, hemoglobin 11.1, hematocrit 34.2, platelets 320, 46% neutrophils, 42% lymphocytes, 6% monocytes. ESR was 52. Sodium 142, potassium 3.7, chloride 106, bicarb 28, BUN 12, creatinine 0.58, glucose 87, calcium 8.2, vitamin B12 and folate are pending. Microbiology: Blood cultures two sets were drawn on 08/24 were negative. Urine culture is still pending. Urine culture from previous hospitalization on 08/09 had E. Faecalis and Pseudomonas. Urinalysis had too many white cells and 82 red cells. IMAGING STUDIES: CT of the abdomen and pelvis showed circumferential bladder wall thickening measuring about 4 cm. Stone was seen in the urinary bladder as well. This was done with contrast. There is cholelithiasis, but no cholecystitis and there is hepatomegaly. IMPRESSION: This is a 36-year-old gentleman who was admitted with fever, leukocytosis, abdominal pain with muscle spasm, severe multiple sclerosis and chronic catheter for urinary retention. The patient had a catheter associated UTI most likely same pathogen as previous admission. He was treated with IV meropenem with improvement of his symptoms, resolution of his fever and normalization of his white count. PLAN: Continue IV meropenem 1 gram every eight hours. The patient depending on results of culture may need home IV antibiotic if Pseudomonas is resistant to oral Levaquin. If that is the case, we could switch him to a dose of 2 grams every 12 hours or continuous infusion pump to be treated for 10-14 days. Also, discussed the case with Dr. Conti who is his urologist, so he can review the imaging of the CT abdomen and if the patient keeps having recurrences, he may benefit from cystoscopy.
[2016-08-26] MEDS: MEROPENEM INJ 1 GM in D5W MINI-BAG PLUS 100 ML IV SCH ×2 (00:19→09:34)
[2016-08-26] MEDS: oxyCODONE 5MG TAB PO PRN ×2 (05:54→15:01)
[2016-08-26 06:00] VITALS: BP 112/57
[2016-08-26 06:19] LABS: BASO % 0.3 % (0.0-1.0); EOS # 0.3 K/mm3 (0.0-0.50); EOS % 4.6 % (0.0-3.0); LARGE UNSTAINED CELL # 0.1 K/mm3 (0.0-0.4); LARGE UNSTAINED CELL % 2.2 % (0.0-4.0); LYMPH # 3.1 K/mm3 (1.5-4.5); LYMPH % 47.1 % (24.0-44.0); MEAN CORPUSCULAR HEMOGLOBIN 28.3 pg (27.0-33.0); MEAN CORPUSCULAR HGB CONC 32.4 g/dl (32.0-36.5); MEAN CORPUSCULAR VOLUME 87.6 fl (80.0-96.0); MONO # 0.5 K/mm3 (0.0-0.8); MONO % 7.3 % (0.0-5.0); NEUTROPHILS # 2.5 K/mm3 (1.8-7.7); NEUTROPHILS % 38.5 % (36.0-66.0); PLATELET COUNT, AUTOMATED 328 k/mm3 (150-450); RED CELL DISTRIBUTION WIDTH 14.3 % (11.5-14.5); WHITE BLOOD COUNT 6.6 K/mm3 (4.0-10.0)
[2016-08-26 06:29] LABS: ANION GAP 8 MEQ/L (8-16); BLOOD UREA NITROGEN 11 MG/DL (7-18); CALCIUM LEVEL 8.4 MG/DL (8.5-10.1); CARBON DIOXIDE LEVEL 29 MEQ/L (21-32); CHLORIDE LEVEL 105 MEQ/L (98-107); CREATININE FOR GFR 0.61 MG/DL (0.70-1.30); GLOMERULAR FILTRATION RATE > 60.0 (>60); GLUCOSE, FASTING 88 MG/DL (70-105); POTASSIUM SERUM 3.8 MEQ/L (3.5-5.1); SODIUM LEVEL 142 MEQ/L (136-145)
[2016-08-26] MEDS: ALBUTEROL SULFATE 2.5 MG/0.5 ML INH NEB SOLN NEB SCH ×4 (08:09→23:55)
[2016-08-26] MEDS: GABAPENTIN 300 MG CAP PO SCH ×3 (09:33→20:38)
[2016-08-26] MEDS: oxyCODONE 40 MG CR TAB PO SCH ×2 (09:33→20:39)
[2016-08-26] MEDS: levETIRAcetam 250MG TABLET (KEPPRA) PO SCH ×2 (09:33→20:39)
[2016-08-26] MEDS: LACTOBACILLUS ACIDOPHILUS CAP (BACID) PO SCH ×2 (09:33→20:38)
[2016-08-26] MEDS: ENOXAPARIN 30 MG/0.3 ML SYR (J1650) SC SCH (09:34)
[2016-08-26] MEDS: SENOKOT S TAB PO SCH ×2 (09:34→20:38)
--- NOTE | 2016-08-26 10:47 | IPNPDOC ---
Text Note Date of Service The patient was seen on 08/26/16. NOTE Subjective: Patient is a 36 year old male with a PMHx of Multiple Sclerosis, Intractable back pain, Sacral decubitus ulcers, Urinary retention, Chronic constipation and Insomnia who presented to the ED with fever. He was found to have a urinary tract infection and admitted. Patient has been seen and examined at the bedside. Currently he does not note any problems Objective: Vitals (See below) General: Lying in bed, no acute distress, comfortable, AAOx3 HEENT: NC, AT CVS: RRR, +S1S2 Lungs: Fair air entry b/l, -w/r/r Abdomen: Soft, ND, NT, +BSx4 Extremities: +PPx4, - Edema, - Calf tenderness Assessment and plan: 1. Fever - likely 2/2 urinary tract infection - Patient has a history of multiple recurrent urinary tract infections - Has a chronic indwelling Coburn catheter; was replaced during this hospital course - Leukocytosis has been improving - UA consistent with urinary tract infection - Urine culture 08/24 remains pending - c/w Meropenem given his history of Pseudomonas UTI in the past - Dr. Zepeda (Infectious disease) has been consulted; if his Urine culture shows resistance to Levaquin; will require Meropenem IV 2. Multiple sclerosis; - Pseudo-exacerbation given acute infection at this time - c/w Gabapentin, Keppra, Oxycodone and Diazepam - Pain management has been consulted; recommended increasing dose of Oxycodone to 30mg q6-8 hours 3. Sacral decubitus ulcers - c/w wound care 4. Chronic constipation - likely 2/2 narcotic pain medications - c/w bowel regimen 5. Normocytic anemia - likely 2/2 iron deficiency anemia - will require ferrous sulfate supplementation 6. Chronic asthma - c/w inhaled therapy 7. Protein calorie malnutrition - c/w supplementation with Ensure 8. Insomnia - c/w Zolpidem 9. DVT prophylaxis - c/w Lovenox VS,Fishbone, I+O VS, Fishbone, I+O Laboratory Tests 08/26/16 05:57 Calcium Level 8.4 L, Red Blood Count 4.10 L, Mean Corpuscular Volume 87.6, Mean Corpuscular Hemoglobin 28.3, Mean Corpuscular Hemoglobin Concent 32.4, Red Cell Distribution Width 14.3, Neutrophils (%) (Auto) 38.5, Lymphocytes (%) (Auto) 47.1 H, Monocytes (%) (Auto) 7.3 H, Eosinophils (%) (Auto) 4.6 H, Basophils (%) (Auto) 0.3, Neutrophils # (Auto) 2.5, Lymphocytes # (Auto) 3.1, Monocytes # ( Auto) 0.5, Eosinophils # (Auto) 0.3, Basophils # (Auto) 0.0 Vital Signs Date Time Temp Pulse Resp B/P Pulse Ox O2 Delivery O2 Flow Rate FiO2 08/26/16 09:33 18 Room Air 08/26/16 06:00 98.5 73 112/57 97 I&O- Last 24 Hours up to 6 AM 08/26/16 05:59 Intake Total 2540 ml Output Total 4050 ml Balance -1510 ml MAAME ANGEL MD Aug 26, 2016 10:47
[2016-08-26 14:00] VITALS: BP 123/72
--- NOTE | 2016-08-26 15:36 | IPNPDOC ---
Text Note Date of Service The patient was seen on 08/26/16. NOTE Subjective: Seth is seen today at bedside sitting comfortably. He states that he is still having some mild abdominal pain, severe back pain and is quite drowsy today. He denies any fevers or chills. He says that overall he is feeling a little bit better since yesterday. Objective: Vitals: Temp: 98.9 Pulse: 79 RR: 16 BP: 123/72 Pulse oximetry: 96 on room air Physical exam: GENERAL: alert, awake, oriented x3. Sitting comfortably in bed. HEENT: Normocephalic, atraumatic. Mucous membranes moist. NECK: Supple. No neck lymphadenopathy. CARDIOVASCULAR: Regular rate and rhythm, S1, S2. No murmurs, rubs, or gallops. LUNGS: Clear to auscultation bilaterally. No wheezes, rales, or rhonchi. ABDOMEN: Mildly tender to palpation in the lower abdomen and suprapubic region. No rigidity, no rebound. EXTREMITIES: No edema, clubbing, or cyanosis. Patient was unable to move the lower extremities, which is consistent with his baseline. Severe muscle atrophy present in lower limbs. He is able to move upper extremities against gravity. Laboratory: WBC: 6.6 Hgb: 11.6 Hct: 35.9 Platelets: 328 Na: 142 K: 3.8 Cl: 105 CO2: 29 BUN: 11 Creatinine: 0.61 glucose: 88 Urine Culture showed multidrug resistant Pseudomonas. This did show intermediate resistance to cefepime and ceftazidime. KB testing is being performed to further evaluate the resistance of the organism. Blood Culture negative at 48 hours. Assessment/plan: 1: Catheter associated multidrug resistant pseudomonas UTI: Overall improving. Patient has been afebrile and his WBC is back to normal. Will change to Ceftazidime 2g Q8 IV given the new resistance profile. Pharmacy was called and is trying to obtain Avycaz (Ceftazidime/avibactam) for better coverage this bacteria. Ceftazidime will be continued until this is obtained for a total treatment period of 14 days. Will await further KB resistance testing to see if further changes are necessary. GME ATTESTATION GME ATTESTATION My preceptor for this patient encounter was physically present in the building during the encounter and was fully available. As needed, all aspects of the patient interview, examination, medical decision making process, and medical care plan development were reviewed and approved by the preceptor. Preceptor is aware and concurs with the plan as stated in the body of this note and will attest to such by his/her cosignature. SHANNAN RAMESH DO Aug 26, 2016 15:36
[2016-08-26] MEDS: NS 1,000 ML IV SCH ×2 (16:21→20:40)
[2016-08-26] MEDS: cefTAZidime 2 GM in D5W MINI-BAG PLUS 100 ML IV SCH (18:37)
[2016-08-26 22:00] VITALS: BP 125/74
[2016-08-27] MEDS: zolPIDEM TARTRATE 5 MG TAB PO PRN ×2 (00:08→20:16)
[2016-08-27] MEDS: oxyCODONE 5MG TAB PO PRN ×2 (00:09→14:35)
[2016-08-27] MEDS: cefTAZidime 2 GM in D5W MINI-BAG PLUS 100 ML IV SCH ×3 (01:49→17:07)
[2016-08-27 06:00] VITALS: BP 129/67
[2016-08-27 06:13] LABS: ANION GAP 5 MEQ/L (8-16); BLOOD UREA NITROGEN 12 MG/DL (7-18); CALCIUM LEVEL 8.5 MG/DL (8.5-10.1); CARBON DIOXIDE LEVEL 31 MEQ/L (21-32); CHLORIDE LEVEL 104 MEQ/L (98-107); CREATININE FOR GFR 0.58 MG/DL (0.70-1.30); GLOMERULAR FILTRATION RATE > 60.0 (>60); GLUCOSE, FASTING 103 MG/DL (70-105); POTASSIUM SERUM 3.9 MEQ/L (3.5-5.1); SODIUM LEVEL 140 MEQ/L (136-145)
[2016-08-27 06:20] LABS: BASO % 0.3 % (0.0-1.0); EOS # 0.4 K/mm3 (0.0-0.50); EOS % 5.1 % (0.0-3.0); LARGE UNSTAINED CELL # 0.1 K/mm3 (0.0-0.4); LARGE UNSTAINED CELL % 1.4 % (0.0-4.0); LYMPH # 3.1 K/mm3 (1.5-4.5); LYMPH % 35.9 % (24.0-44.0); MEAN CORPUSCULAR HEMOGLOBIN 28.6 pg (27.0-33.0); MEAN CORPUSCULAR HGB CONC 32.8 g/dl (32.0-36.5); MEAN CORPUSCULAR VOLUME 87.2 fl (80.0-96.0); MONO # 0.4 K/mm3 (0.0-0.8); MONO % 5.1 % (0.0-5.0); NEUTROPHILS # 4.4 K/mm3 (1.8-7.7); NEUTROPHILS % 52.3 % (36.0-66.0); PLATELET COUNT, AUTOMATED 336 k/mm3 (150-450); RED CELL DISTRIBUTION WIDTH 14.5 % (11.5-14.5); WHITE BLOOD COUNT 8.4 K/mm3 (4.0-10.0)
[2016-08-27] MEDS: ALBUTEROL SULFATE 2.5 MG/0.5 ML INH NEB SOLN NEB SCH ×3 (08:13→23:17)
[2016-08-27] MEDS: SENOKOT S TAB PO SCH ×2 (08:44→20:07)
[2016-08-27] MEDS: LACTOBACILLUS ACIDOPHILUS CAP (BACID) PO SCH ×2 (08:44→20:07)
[2016-08-27] MEDS: levETIRAcetam 250MG TABLET (KEPPRA) PO SCH ×2 (08:44→20:05)
[2016-08-27] MEDS: oxyCODONE 40 MG CR TAB PO SCH ×2 (08:44→20:07)
[2016-08-27] MEDS: GABAPENTIN 300 MG CAP PO SCH ×3 (08:44→20:05)
[2016-08-27] MEDS: ENOXAPARIN 30 MG/0.3 ML SYR (J1650) SC SCH (08:45)
[2016-08-27] MEDS: BISACODYL 5 MG TAB PO PRN (08:45)
[2016-08-27] MEDS: NS 1,000 ML IV SCH (08:45)
[2016-08-27 09:13] LABS: VITAMIN B12 LEVEL 322 PG/ML
[2016-08-27 09:14] LABS: FOLATE 20.9 NG/ML
--- NOTE | 2016-08-27 11:05 | IPNPDOC ---
Text Note Date of Service The patient was seen on 08/27/16. NOTE Subjective: Patient is a 36 year old male with a PMHx of Multiple Sclerosis, Intractable back pain, Sacral decubitus ulcers, Urinary retention, Chronic constipation and Insomnia who presented to the ED with fever. He was found to have a urinary tract infection and admitted. Patient has been seen and examined at the bedside. He noted that he was having some pain of his left 4th and 5th digits of his foot. He also notes some constipation. Objective: Vitals (See below) General: Lying in bed, no acute distress, comfortable, AAOx3 HEENT: NC, AT CVS: RRR, +S1S2 Lungs: Fair air entry b/l, -w/r/r Abdomen: Soft, ND, NT, +BSx4 Extremities: +PPx4, - Edema, - Calf tenderness Assessment and plan: 1. Fever - likely 2/2 urinary tract infection - Patient has a history of multiple recurrent urinary tract infections - Has a chronic indwelling Coburn catheter; was replaced during this hospital course - Leukocytosis has been improving - UA consistent with urinary tract infection - Urine culture 08/24 remains pending - Abx changed to Ceftazidime given resistance to all other antibiotics - Dr. Zepeda (Infectious disease) has been consulted; will require 14 day course of antibiotics - Will look into sub-acute options; as patient is unwilling to take IV medications at home 2. Multiple sclerosis; - Pseudo-exacerbation given acute infection at this time - c/w Gabapentin, Keppra, Oxycodone and Diazepam - Pain management has been consulted; recommended increasing dose of Oxycodone to 30mg q6-8 hours 3. Sacral decubitus ulcers - c/w wound care 4. Chronic constipation - likely 2/2 narcotic pain medications - c/w bowel regimen - Will give Fleet enema at this time 5. Normocytic anemia - likely 2/2 iron deficiency anemia - will require ferrous sulfate supplementation 6. Chronic asthma - c/w inhaled therapy 7. Protein calorie malnutrition - c/w supplementation with Ensure 8. Insomnia - c/w Zolpidem 9. DVT prophylaxis - c/w Lovenox VS,Fishbone, I+O VS, Fishbone, I+O Laboratory Tests 08/27/16 05:24 Calcium Level 8.5, Red Blood Count 4.12 L, Mean Corpuscular Volume 87.2, Mean Corpuscular Hemoglobin 28.6, Mean Corpuscular Hemoglobin Concent 32.8, Red Cell Distribution Width 14.5, Neutrophils (%) (Auto) 52.3, Lymphocytes (%) (Auto) 35.9, Monocytes (%) (Auto) 5.1 H, Eosinophils (%) (Auto) 5.1 H, Basophils (%) ( Auto) 0.3, Neutrophils # (Auto) 4.4, Lymphocytes # (Auto) 3.1, Monocytes # (Auto ) 0.4, Eosinophils # (Auto) 0.4, Basophils # (Auto) 0.0 Vital Signs Date Time Temp Pulse Resp B/P Pulse Ox O2 Delivery O2 Flow Rate FiO2 08/27/16 08:44 18 Room Air 08/27/16 06:00 99.1 69 129/67 96 I&O- Last 24 Hours up to 6 AM 08/27/16 06:00 Intake Total 2360 ml Output Total 2600 ml Balance -240 ml MAAME ANGEL MD Aug 27, 2016 11:05
--- NOTE | 2016-08-27 11:21 | REP ---
Clinical: Trauma. Rule out fracture. Technique: AP and lateral views of the left foot. Findings: Diffuse osteopenia is appreciated. There is a nondisplaced fracture involving the fifth toe proximal phalanx. Evaluation of the second through fourth proximal phalanges is limited due to positioning and angulation. Impression: 1. Nondisplaced fracture of the fifth toe proximal phalanx. 2. Diffuse osteopenia out of proportion to age. Signed by Brandon Doss MD 08/27/2016 11:12 A
[2016-08-27 14:00] VITALS: BP 120/50
[2016-08-27] MEDS: FLEET ENEMA PR PRN (16:00)
[2016-08-27 22:00] VITALS: BP 126/64
[2016-08-27] MEDS: diazePAM 10 MG TAB PO PRN (23:09)
[2016-08-28] MEDS: cefTAZidime 2 GM in D5W MINI-BAG PLUS 100 ML IV SCH ×3 (02:12→17:36)
[2016-08-28] MEDS: NS 1,000 ML IV SCH ×2 (02:13→16:52)
[2016-08-28 06:00] VITALS: BP 125/68
[2016-08-28 06:57] LABS: BASO % 0.5 % (0.0-1.0); EOS # 0.4 K/mm3 (0.0-0.50); EOS % 5.9 % (0.0-3.0); LARGE UNSTAINED CELL # 0.2 K/mm3 (0.0-0.4); LARGE UNSTAINED CELL % 3.3 % (0.0-4.0); LYMPH # 2.6 K/mm3 (1.5-4.5); LYMPH % 38.9 % (24.0-44.0); MEAN CORPUSCULAR HEMOGLOBIN 28.1 pg (27.0-33.0); MEAN CORPUSCULAR HGB CONC 32.1 g/dl (32.0-36.5); MEAN CORPUSCULAR VOLUME 87.4 fl (80.0-96.0); MONO # 0.5 K/mm3 (0.0-0.8); MONO % 7.2 % (0.0-5.0); NEUTROPHILS # 2.9 K/mm3 (1.8-7.7); NEUTROPHILS % 44.1 % (36.0-66.0); PLATELET COUNT, AUTOMATED 347 k/mm3 (150-450); RED CELL DISTRIBUTION WIDTH 14.3 % (11.5-14.5); WHITE BLOOD COUNT 6.7 K/mm3 (4.0-10.0)
[2016-08-28 07:14] LABS: ANION GAP 5 MEQ/L (8-16); BLOOD UREA NITROGEN 11 MG/DL (7-18); CALCIUM LEVEL 9.1 MG/DL (8.5-10.1); CARBON DIOXIDE LEVEL 32 MEQ/L (21-32); CHLORIDE LEVEL 104 MEQ/L (98-107); CREATININE FOR GFR 0.58 MG/DL (0.70-1.30); GLOMERULAR FILTRATION RATE > 60.0 (>60); GLUCOSE, FASTING 90 MG/DL (70-105); POTASSIUM SERUM 4.1 MEQ/L (3.5-5.1); SODIUM LEVEL 141 MEQ/L (136-145)
[2016-08-28] MEDS: ALBUTEROL SULFATE 2.5 MG/0.5 ML INH NEB SOLN NEB SCH ×2 (07:59→15:12)
[2016-08-28] MEDS: GABAPENTIN 300 MG CAP PO SCH ×3 (09:20→20:41)
[2016-08-28] MEDS: levETIRAcetam 250MG TABLET (KEPPRA) PO SCH ×2 (09:21→20:41)
[2016-08-28] MEDS: oxyCODONE 40 MG CR TAB PO SCH ×2 (09:21→20:40)
[2016-08-28] MEDS: diazePAM 10 MG TAB PO PRN ×2 (09:21→20:56)
[2016-08-28] MEDS: LACTOBACILLUS ACIDOPHILUS CAP (BACID) PO SCH ×2 (09:21→20:41)
[2016-08-28] MEDS: SENOKOT S TAB PO SCH ×3 (09:21→21:00)
[2016-08-28] MEDS: BISACODYL 5 MG TAB PO PRN (09:21)
[2016-08-28] MEDS: ENOXAPARIN 30 MG/0.3 ML SYR (J1650) SC SCH (09:22)
--- NOTE | 2016-08-28 11:21 | IPNPDOC ---
Text Note Date of Service The patient was seen on 08/28/16. NOTE Subjective: Patient is a 36 year old male with a PMHx of Multiple Sclerosis, Intractable back pain, Sacral decubitus ulcers, Urinary retention, Chronic constipation and Insomnia who presented to the ED with fever. He was found to have a urinary tract infection and admitted. Patient has been seen and examined at the bedside. Discussed with patient about placement options. Patient absolutely refused to have manager terminal placement options, however did not completely exclude the idea of short term facility for continued antibiotics. Objective: Vitals (See below) General: Lying in bed, no acute distress, comfortable, AAOx3 HEENT: NC, AT CVS: RRR, +S1S2 Lungs: Fair air entry b/l, -w/r/r Abdomen: Soft, ND, NT, +BSx4 Extremities: +PPx4, - Edema, - Calf tenderness Assessment and plan: 1. Fever - likely 2/2 urinary tract infection - Patient has a history of multiple recurrent urinary tract infections - Has a chronic indwelling Coburn catheter; was replaced during this hospital course - Leukocytosis has been improving - UA consistent with urinary tract infection - Urine culture 08/24: + Pseudomonas aeruginosa - Abx changed to Ceftazidime (Day #3 of 14) given resistance to all other antibiotics - Dr. Zepeda (Infectious disease) has been consulted; will require 14 day course of antibiotics - Will look into sub-acute options; as patient is unwilling to take IV medications at home 2. Multiple sclerosis; - Pseudo-exacerbation given acute infection at this time - c/w Gabapentin, Keppra, Oxycodone and Diazepam - Pain management has been consulted; recommended increasing dose of Oxycodone to 30mg q6-8 hours 3. Sacral decubitus ulcers - c/w wound care 4. Chronic constipation - likely 2/2 narcotic pain medications - c/w bowel regimen 5. Normocytic anemia - likely 2/2 iron deficiency anemia - will require ferrous sulfate supplementation 6. Chronic asthma - c/w inhaled therapy 7. Protein calorie malnutrition - c/w supplementation with Ensure 8. Insomnia - c/w Zolpidem 9. DVT prophylaxis - c/w Lovenox VS,Fishbone, I+O VS, Fishbone, I+O Laboratory Tests 08/28/16 06:07 Calcium Level 9.1, Red Blood Count 4.22 L, Mean Corpuscular Volume 87.4, Mean Corpuscular Hemoglobin 28.1, Mean Corpuscular Hemoglobin Concent 32.1, Red Cell Distribution Width 14.3, Neutrophils (%) (Auto) 44.1, Lymphocytes (%) (Auto) 38.9, Monocytes (%) (Auto) 7.2 H, Eosinophils (%) (Auto) 5.9 H, Basophils (%) ( Auto) 0.5, Neutrophils # (Auto) 2.9, Lymphocytes # (Auto) 2.6, Monocytes # (Auto ) 0.5, Eosinophils # (Auto) 0.4, Basophils # (Auto) 0.0 Vital Signs Date Time Temp Pulse Resp B/P Pulse Ox O2 Delivery O2 Flow Rate FiO2 08/28/16 09:21 18 Room Air 08/28/16 06:00 97.9 89 125/68 95 I&O- Last 24 Hours up to 6 AM 08/28/16 05:59 Intake Total 3865 ml Output Total 5400 ml Balance -1535 ml MAAME ANGEL MD Aug 28, 2016 11:21
[2016-08-28 14:00] VITALS: BP 126/67
[2016-08-28] MEDS: oxyCODONE 5MG TAB PO PRN (16:52)
[2016-08-28 20:50] VITALS: BP 111/80
[2016-08-28] MEDS: zolPIDEM TARTRATE 5 MG TAB PO PRN (20:56)
[2016-08-29] MEDS: cefTAZidime 2 GM in D5W MINI-BAG PLUS 100 ML IV SCH ×3 (01:19→18:23)
[2016-08-29] MEDS: oxyCODONE 5MG TAB PO PRN ×3 (01:39→20:27)
[2016-08-29 06:00] VITALS: BP 111/62
[2016-08-29] MEDS: ALBUTEROL SULFATE 2.5 MG/0.5 ML INH NEB SOLN NEB SCH ×4 (07:12→23:51)
[2016-08-29 07:34] LABS: BASO % 0.5 % (0.0-1.0); EOS # 0.4 K/mm3 (0.0-0.50); EOS % 5.8 % (0.0-3.0); LARGE UNSTAINED CELL # 0.2 K/mm3 (0.0-0.4); LARGE UNSTAINED CELL % 2.3 % (0.0-4.0); LYMPH # 3.2 K/mm3 (1.5-4.5); MEAN CORPUSCULAR HEMOGLOBIN 28.6 pg (27.0-33.0); MEAN CORPUSCULAR HGB CONC 33.2 g/dl (32.0-36.5); MEAN CORPUSCULAR VOLUME 86.3 fl (80.0-96.0); MONO # 0.4 K/mm3 (0.0-0.8); MONO % 5.3 % (0.0-5.0); NEUTROPHILS # 3.3 K/mm3 (1.8-7.7); NEUTROPHILS % 45.1 % (36.0-66.0); PLATELET COUNT, AUTOMATED 311 k/mm3 (150-450); RED CELL DISTRIBUTION WIDTH 14.3 % (11.5-14.5); WHITE BLOOD COUNT 7.4 K/mm3 (4.0-10.0)
[2016-08-29 08:10] LABS: ALBUMIN 2.8 GM/DL (3.2-5.2); ALBUMIN/GLOBULIN RATIO 0.68 (1.00-1.93); ALKALINE PHOSPHATASE 95 U/L (45-117); ALT/SGPT 35 U/L (12-78); ANION GAP 7 MEQ/L (8-16); AST/SGOT 25 U/L (15-37); BILIRUBIN,TOTAL 0.2 MG/DL (0.2-1.0); BLOOD UREA NITROGEN 14 MG/DL (7-18); CALCIUM LEVEL 8.7 MG/DL (8.5-10.1); CARBON DIOXIDE LEVEL 30 MEQ/L (21-32); CHLORIDE LEVEL 104 MEQ/L (98-107); CREATININE FOR GFR 0.49 MG/DL (0.70-1.30); GLOMERULAR FILTRATION RATE > 60.0 (>60); GLUCOSE, FASTING 74 MG/DL (70-105); MAGNESIUM LEVEL 2.1 MG/DL (1.8-2.4); POTASSIUM SERUM 4.1 MEQ/L (3.5-5.1); SODIUM LEVEL 141 MEQ/L (136-145); TOTAL PROTEIN 6.9 GM/DL (6.4-8.2)
[2016-08-29] MEDS: ENOXAPARIN 30 MG/0.3 ML SYR (J1650) SC SCH (09:05)
[2016-08-29] MEDS: LACTOBACILLUS ACIDOPHILUS CAP (BACID) PO SCH ×2 (09:05→20:25)
[2016-08-29] MEDS: levETIRAcetam 250MG TABLET (KEPPRA) PO SCH ×2 (09:07→20:26)
[2016-08-29] MEDS: GABAPENTIN 300 MG CAP PO SCH ×3 (09:07→20:25)
[2016-08-29] MEDS: SENOKOT S TAB PO SCH ×2 (09:08→20:25)
[2016-08-29] MEDS: NS 1,000 ML IV SCH ×2 (09:08→20:28)
[2016-08-29] MEDS: oxyCODONE 40 MG CR TAB PO SCH ×2 (09:10→20:27)
--- NOTE | 2016-08-29 10:26 | IPNPDOC ---
Text Note Date of Service The patient was seen on 08/29/16. NOTE Subjective: Patient is a 36 year old male with a PMHx of Multiple Sclerosis, Intractable back pain, Sacral decubitus ulcers, Urinary retention, Chronic constipation and Insomnia who presented to the ED with fever. He was found to have a urinary tract infection and admitted. Patient has been seen and examined at the bedside. Upon asking him about options for continued treatment; he absolutely refused the idea of leaving the hospital for treatment anywhere else. He noted that unless he can go home and receive IV antibiotics, he wouldn't leave. He denied any abdominal pain or events overnight. Objective: Vitals (See below) General: Lying in bed, no acute distress, comfortable, AAOx3 HEENT: NC, AT CVS: RRR, +S1S2 Lungs: Fair air entry b/l, -w/r/r Abdomen: Soft, ND, NT, +BSx4 Extremities: +PPx4, - Edema, - Calf tenderness Assessment and plan: 1. s/p Fever - likely 2/2 urinary tract infection - Patient has a history of multiple recurrent urinary tract infections - Has a chronic indwelling Coburn catheter; was replaced during this hospital course - Leukocytosis has resolved - UA consistent with urinary tract infection - Urine culture 08/24: + Pseudomonas aeruginosa - Abx changed to Ceftazidime (Day #4 of 14) given resistance to all other antibiotics - Dr. Zepeda (Infectious disease) on consult - Patient may have to remain inpatient for completion of antibiotic course 2. Multiple sclerosis; - Pseudo-exacerbation given acute infection at this time - c/w Gabapentin, Keppra, Oxycodone and Diazepam - Pain management was consulted - appreciate their input 3. Sacral decubitus ulcers - c/w wound care 4. Chronic constipation - likely 2/2 narcotic pain medications - c/w bowel regimen 5. Normocytic anemia - likely 2/2 iron deficiency anemia - will start ferrous sulfate today 6. Chronic asthma - c/w inhaled therapy 7. Protein calorie malnutrition - c/w supplementation with Ensure 8. Insomnia - c/w Zolpidem 9. DVT prophylaxis - c/w Lovenox Disposition: - He is refusing to go to any subacute center for continued antibiotics at the risk that he will be held their against his will - Advised that the only way he would leave is if he got IV antibiotics at home - At this time; outpatient services are not available to him - Will remain inpatient for antibiotic course VS,Dave, I+O VS, Dave, I+O Laboratory Tests 08/29/16 07:11 Calcium Level 8.7, Aspartate Amino Transf (AST/SGOT) 25, Alanine Aminotransferase (ALT/SGPT) 35, Alkaline Phosphatase 95, Total Bilirubin 0.2, Total Protein 6.9, Albumin 2.8 L, Red Blood Count 4.04 L, Mean Corpuscular Volume 86.3, Mean Corpuscular Hemoglobin 28.6, Mean Corpuscular Hemoglobin Concent 33.2, Red Cell Distribution Width 14.3, Neutrophils (%) (Auto) 45.1, Lymphocytes (%) (Auto) 41.0, Monocytes (%) (Auto) 5.3 H, Eosinophils (%) (Auto) 5.8 H, Basophils (%) (Auto) 0.5, Neutrophils # (Auto) 3.3, Lymphocytes # (Auto) 3.2, Monocytes # (Auto) 0.4, Eosinophils # (Auto) 0.4, Basophils # (Auto) 0.0 Vital Signs Date Time Temp Pulse Resp B/P Pulse Ox O2 Delivery O2 Flow Rate FiO2 08/29/16 10:15 20 Room Air 08/29/16 06:00 98.4 69 111/62 96 I&O- Last 24 Hours up to 6 AM 08/29/16 06:00 Intake Total 2628 ml Output Total 2575 ml Balance 53 ml MAAME ANGEL MD Aug 29, 2016 10:26
[2016-08-29] MEDS: diazePAM 10 MG TAB PO PRN ×2 (13:12→20:27)
[2016-08-29] MEDS: FERROUS SULFATE 325MG TAB PO SCH ×2 (13:12→20:26)
[2016-08-29 14:00] VITALS: BP 112/70
[2016-08-29 22:00] VITALS: BP 104/66
[2016-08-30] MEDS: NS 1,000 ML IV SCH ×2 (01:25→17:27)
[2016-08-30] MEDS: zolPIDEM TARTRATE 5 MG TAB PO PRN ×2 (01:25→22:51)
[2016-08-30] MEDS: cefTAZidime 2 GM in D5W MINI-BAG PLUS 100 ML IV SCH ×3 (01:25→17:32)
[2016-08-30] MEDS: oxyCODONE 5MG TAB PO PRN ×2 (05:57→17:34)
[2016-08-30 06:23] LABS: BASO % 0.8 % (0.0-1.0); EOS # 0.4 K/mm3 (0.0-0.50); EOS % 7.4 % (0.0-3.0); LARGE UNSTAINED CELL # 0.2 K/mm3 (0.0-0.4); LARGE UNSTAINED CELL % 2.7 % (0.0-4.0); LYMPH # 2.9 K/mm3 (1.5-4.5); LYMPH % 47.9 % (24.0-44.0); MEAN CORPUSCULAR HEMOGLOBIN 29.6 pg (27.0-33.0); MEAN CORPUSCULAR HGB CONC 34.4 g/dl (32.0-36.5); MEAN CORPUSCULAR VOLUME 86.1 fl (80.0-96.0); MONO # 0.3 K/mm3 (0.0-0.8); MONO % 4.8 % (0.0-5.0); NEUTROPHILS # 2.2 K/mm3 (1.8-7.7); NEUTROPHILS % 36.5 % (36.0-66.0); PLATELET COUNT, AUTOMATED 316 k/mm3 (150-450); RED CELL DISTRIBUTION WIDTH 13.9 % (11.5-14.5)
[2016-08-30 06:43] LABS: ALBUMIN 2.9 GM/DL (3.2-5.2); ALBUMIN/GLOBULIN RATIO 0.73 (1.00-1.93); ALKALINE PHOSPHATASE 92 U/L (45-117); ALT/SGPT 33 U/L (12-78); ANION GAP 5 MEQ/L (8-16); AST/SGOT 22 U/L (15-37); BILIRUBIN,TOTAL 0.2 MG/DL (0.2-1.0); BLOOD UREA NITROGEN 15 MG/DL (7-18); CARBON DIOXIDE LEVEL 33 MEQ/L (21-32); CHLORIDE LEVEL 106 MEQ/L (98-107); CREATININE FOR GFR 0.47 MG/DL (0.70-1.30); GLOMERULAR FILTRATION RATE > 60.0 (>60); GLUCOSE, FASTING 92 MG/DL (70-105); MAGNESIUM LEVEL 2.1 MG/DL (1.8-2.4); POTASSIUM SERUM 3.7 MEQ/L (3.5-5.1); SODIUM LEVEL 144 MEQ/L (136-145); TOTAL PROTEIN 6.9 GM/DL (6.4-8.2)
[2016-08-30] MEDS: ALBUTEROL SULFATE 2.5 MG/0.5 ML INH NEB SOLN NEB SCH ×3 (07:25→23:54)
[2016-08-30] MEDS: GABAPENTIN 300 MG CAP PO SCH ×3 (08:08→20:08)
[2016-08-30] MEDS: LACTOBACILLUS ACIDOPHILUS CAP (BACID) PO SCH ×2 (08:08→20:07)
[2016-08-30] MEDS: FERROUS SULFATE 325MG TAB PO SCH ×2 (08:08→20:07)
[2016-08-30] MEDS: SENOKOT S TAB PO SCH ×2 (08:08→20:06)
[2016-08-30] MEDS: levETIRAcetam 250MG TABLET (KEPPRA) PO SCH ×2 (08:08→20:07)
[2016-08-30] MEDS: ENOXAPARIN 30 MG/0.3 ML SYR (J1650) SC SCH (08:09)
[2016-08-30] MEDS: oxyCODONE 40 MG CR TAB PO SCH ×2 (08:09→20:07)
--- NOTE | 2016-08-30 11:07 | IPNPDOC ---
Text Note Date of Service The patient was seen on 08/30/16. NOTE Subjective: Patient is a 36 year old male with a PMHx of Multiple Sclerosis, Intractable back pain, Sacral decubitus ulcers, Urinary retention, Chronic constipation and Insomnia who presented to the ED with fever. He was found to have a urinary tract infection and admitted. Patient has been seen and examined at the bedside. Patient noted that he was in more pain yesterday. He noted he had cramping of his legs last night that caused them to be "behind his head." He was asking for his pain medications to be adjusted. Objective: Vitals (See below) General: Lying in bed, no acute distress, comfortable, AAOx3 HEENT: NC, AT CVS: RRR, +S1S2 Lungs: Fair air entry b/l, -w/r/r Abdomen: Soft, ND, NT, +BSx4 Extremities: +PPx4, - Edema, - Calf tenderness Assessment and plan: 1. s/p Fever - likely 2/2 urinary tract infection - Patient has a history of multiple recurrent urinary tract infections - Has a chronic indwelling Coburn catheter; was replaced during this hospital course - s/p Leukocytosis - UA consistent with infection; Urine culture 08/24: + Pseudomonas aeruginosa - Abx changed to Ceftazidime (Day #5 of 14) given resistance to all other antibiotics - Dr. Zepeda (Infectious disease) on consult 2. Multiple sclerosis; - Pseudo-exacerbation given acute infection at this time - c/w Gabapentin, Keppra, Oxycodone and Diazepam - Pain management was consulted - appreciate their input - will continue with existing regimen 3. Sacral decubitus ulcers - c/w wound care 4. Chronic constipation - likely 2/2 narcotic pain medications - c/w bowel regimen 5. Normocytic anemia - likely 2/2 iron deficiency anemia - c/w ferrous sulfate 6. Chronic asthma - c/w inhaled therapy 7. Protein calorie malnutrition - c/w supplementation with Ensure 8. Insomnia - c/w Zolpidem 9. DVT prophylaxis - c/w Lovenox Disposition: - At this time outpatient services are not available to him and he will remain inpatient for completion o fantibiotic course VS,Fishbone, I+O VS, Fishbone, I+O Laboratory Tests 08/30/16 05:31 Calcium Level 9.0, Aspartate Amino Transf (AST/SGOT) 22, Alanine Aminotransferase (ALT/SGPT) 33, Alkaline Phosphatase 92, Total Bilirubin 0.2, Total Protein 6.9, Albumin 2.9 L, Red Blood Count 3.97 L, Mean Corpuscular Volume 86.1, Mean Corpuscular Hemoglobin 29.6, Mean Corpuscular Hemoglobin Concent 34.4, Red Cell Distribution Width 13.9, Neutrophils (%) (Auto) 36.5, Lymphocytes (%) (Auto) 47.9 H, Monocytes (%) (Auto) 4.8, Eosinophils (%) (Auto) 7.4 H, Basophils (%) (Auto) 0.8, Neutrophils # (Auto) 2.2, Lymphocytes # (Auto) 2.9, Monocytes # (Auto) 0.3, Eosinophils # (Auto) 0.4, Basophils # (Auto) 0.0 Vital Signs Date Time Temp Pulse Resp B/P Pulse Ox O2 Delivery O2 Flow Rate FiO2 08/30/16 08:09 18 08/29/16 22:00 98.0 79 104/66 98 Room Air I&O- Last 24 Hours up to 6 AM 08/30/16 06:00 Intake Total 2305 ml Output Total 2650 ml Balance -345 ml MAAME ANGEL MD Aug 30, 2016 11:06
[2016-08-30 14:00] VITALS: BP 108/57
[2016-08-30] MEDS: diazePAM 10 MG TAB PO PRN (21:33)
[2016-08-30 22:00] VITALS: BP 113/78
[2016-08-31] MEDS ORDERED: NICOTINE POLACRILEX 2 MG GUM PO PRN (00:45)
[2016-08-31] MEDS: cefTAZidime 2 GM in D5W MINI-BAG PLUS 100 ML IV SCH ×3 (01:23→17:53)
[2016-08-31 05:38] VITALS: BP 123/65
[2016-08-31 05:55] LABS: BASO % 0.7 % (0.0-1.0); EOS # 0.4 K/mm3 (0.0-0.50); EOS % 5.4 % (0.0-3.0); LARGE UNSTAINED CELL # 0.2 K/mm3 (0.0-0.4); LARGE UNSTAINED CELL % 2.9 % (0.0-4.0); LYMPH # 3.2 K/mm3 (1.5-4.5); LYMPH % 47.2 % (24.0-44.0); MEAN CORPUSCULAR HEMOGLOBIN 28.7 pg (27.0-33.0); MEAN CORPUSCULAR HGB CONC 32.8 g/dl (32.0-36.5); MEAN CORPUSCULAR VOLUME 87.4 fl (80.0-96.0); MONO # 0.4 K/mm3 (0.0-0.8); NEUTROPHILS # 2.4 K/mm3 (1.8-7.7); NEUTROPHILS % 37.7 % (36.0-66.0); PLATELET COUNT, AUTOMATED 324 k/mm3 (150-450); RED CELL DISTRIBUTION WIDTH 14.2 % (11.5-14.5); WHITE BLOOD COUNT 6.4 K/mm3 (4.0-10.0)
[2016-08-31 06:10] LABS: ALBUMIN 2.8 GM/DL (3.2-5.2); ALBUMIN/GLOBULIN RATIO 0.74 (1.00-1.93); ALKALINE PHOSPHATASE 85 U/L (45-117); ALT/SGPT 29 U/L (12-78); ANION GAP 7 MEQ/L (8-16); AST/SGOT 15 U/L (15-37); BILIRUBIN,TOTAL 0.1 MG/DL (0.2-1.0); BLOOD UREA NITROGEN 13 MG/DL (7-18); CALCIUM LEVEL 8.8 MG/DL (8.5-10.1); CARBON DIOXIDE LEVEL 30 MEQ/L (21-32); CHLORIDE LEVEL 105 MEQ/L (98-107); CREATININE FOR GFR 0.53 MG/DL (0.70-1.30); GLOMERULAR FILTRATION RATE > 60.0 (>60); GLUCOSE, FASTING 88 MG/DL (70-105); MAGNESIUM LEVEL 2.2 MG/DL (1.8-2.4); POTASSIUM SERUM 4.1 MEQ/L (3.5-5.1); SODIUM LEVEL 142 MEQ/L (136-145); TOTAL PROTEIN 6.6 GM/DL (6.4-8.2)
[2016-08-31] MEDS: ALBUTEROL SULFATE 2.5 MG/0.5 ML INH NEB SOLN NEB SCH ×3 (08:23→23:10)
[2016-08-31] MEDS: SENOKOT S TAB PO SCH ×2 (09:03→20:11)
[2016-08-31] MEDS: oxyCODONE 40 MG CR TAB PO SCH ×2 (09:03→20:11)
[2016-08-31] MEDS: LACTOBACILLUS ACIDOPHILUS CAP (BACID) PO SCH ×2 (09:04→20:10)
[2016-08-31] MEDS: levETIRAcetam 250MG TABLET (KEPPRA) PO SCH ×2 (09:04→20:11)
[2016-08-31] MEDS: GABAPENTIN 300 MG CAP PO SCH ×3 (09:04→20:11)
[2016-08-31] MEDS: FERROUS SULFATE 325MG TAB PO SCH ×2 (09:04→20:11)
[2016-08-31] MEDS: ENOXAPARIN 30 MG/0.3 ML SYR (J1650) SC SCH (09:05)
[2016-08-31] MEDS: NICOTINE POLACRILEX 2 MG GUM PO PRN ×2 (09:19→20:24)
--- NOTE | 2016-08-31 10:31 | IPNPDOC ---
Text Note Date of Service The patient was seen on 08/31/16. NOTE Subjective: Patient is a 36 year old male with a PMHx of Multiple Sclerosis, Intractable back pain, Sacral decubitus ulcers, Urinary retention, Chronic constipation and Insomnia who presented to the ED with fever. He was found to have a urinary tract infection and admitted. Patient has been seen and examined at the bedside. He denied any problems today and reported that he just wanted to sleep. Objective: Vitals (See below) General: Lying in bed, no acute distress, comfortable, AAOx3 HEENT: NC, AT CVS: RRR, +S1S2 Lungs: Fair air entry b/l, -w/r/r Abdomen: Soft, ND, NT, +BSx4 Extremities: +PPx4, - Edema, - Calf tenderness Assessment and plan: 1. s/p Fever - likely 2/2 urinary tract infection - Patient has a history of multiple recurrent urinary tract infections - Has a chronic indwelling Cob[place] catheter; was replaced during this hospital course - s/p Leukocytosis - UA consistent with infection; Urine culture 08/24: + Pseudomonas aeruginosa - Abx changed to Ceftazidime (Day #6 of 14) given resistance to all other antibiotics - Dr. Zepeda (Infectious disease) on consult 2. Multiple sclerosis; - Pseudo-exacerbation given acute infection at this time - c/w Gabapentin, Keppra, Oxycodone and Diazepam - Pain management was consulted - appreciate their input - will continue with existing regimen and avoid changing pain medications 3. Sacral decubitus ulcers - c/w wound care 4. Chronic constipation - likely 2/2 narcotic pain medications - c/w bowel regimen 5. Normocytic anemia - likely 2/2 iron deficiency anemia - c/w ferrous sulfate 6. Chronic asthma - c/w inhaled therapy 7. Protein calorie malnutrition - c/w supplementation with Ensure 8. Insomnia - c/w Zolpidem 9. DVT prophylaxis - c/w Lovenox Disposition: - Will remain inpatient for completion of antibiotic course - No subacute or outpatient services are available to him at this time VS,Dave, I+O VS, Dave, I+O Laboratory Tests 08/31/16 05:01 Calcium Level 8.8, Aspartate Amino Transf (AST/SGOT) 15, Alanine Aminotransferase (ALT/SGPT) 29, Alkaline Phosphatase 85, Total Bilirubin 0.1 L, Total Protein 6.6, Albumin 2.8 L 08/31/16 05:02 Red Blood Count 3.91 L, Mean Corpuscular Volume 87.4, Mean Corpuscular Hemoglobin 28.7, Mean Corpuscular Hemoglobin Concent 32.8, Red Cell Distribution Width 14.2, Neutrophils (%) (Auto) 37.7, Lymphocytes (%) (Auto) 47.2 H, Monocytes (%) (Auto) 6.0 H, Eosinophils (%) (Auto) 5.4 H, Basophils (%) (Auto) 0.7, Neutrophils # (Auto) 2.4, Lymphocytes # (Auto) 3.2, Monocytes # ( Auto) 0.4, Eosinophils # (Auto) 0.4, Basophils # (Auto) 0.0 Vital Signs Date Time Temp Pulse Resp B/P Pulse Ox O2 Delivery O2 Flow Rate FiO2 08/31/16 09:03 18 08/31/16 05:38 98.3 70 123/65 97 Room Air I&O- Last 24 Hours up to 6 AM 08/31/16 06:00 Intake Total 1200 ml Output Total 3300 ml Balance -2100 ml MAAME ANGEL MD Aug 31, 2016 10:31
[2016-08-31] MEDS: diazePAM 10 MG TAB PO PRN ×2 (10:54→20:18)
[2016-08-31] MEDS: NS 1,000 ML IV SCH (12:07)
[2016-08-31 14:00] VITALS: BP 121/70
[2016-08-31] MEDS: oxyCODONE 5MG TAB PO PRN (15:56)
[2016-08-31] MEDS: zolPIDEM TARTRATE 5 MG TAB PO PRN (20:11)
[2016-08-31 22:00] VITALS: BP 121/76
[2016-09-01] MEDS: cefTAZidime 2 GM in D5W MINI-BAG PLUS 100 ML IV SCH ×3 (01:18→17:32)
[2016-09-01] MEDS: oxyCODONE 5MG TAB PO PRN ×3 (01:19→23:36)
[2016-09-01] MEDS: NS 1,000 ML IV SCH ×2 (01:19→15:33)
[2016-09-01 06:00] VITALS: BP 124/75
[2016-09-01 06:39] LABS: BASO % 0.6 % (0.0-1.0); EOS # 0.4 K/mm3 (0.0-0.50); EOS % 6.4 % (0.0-3.0); LARGE UNSTAINED CELL # 0.2 K/mm3 (0.0-0.4); LARGE UNSTAINED CELL % 3.7 % (0.0-4.0); LYMPH # 3.1 K/mm3 (1.5-4.5); LYMPH % 52.9 % (24.0-44.0); MEAN CORPUSCULAR HEMOGLOBIN 28.4 pg (27.0-33.0); MEAN CORPUSCULAR HGB CONC 32.7 g/dl (32.0-36.5); MONO # 0.3 K/mm3 (0.0-0.8); MONO % 5.7 % (0.0-5.0); NEUTROPHILS # 1.7 K/mm3 (1.8-7.7); NEUTROPHILS % 30.7 % (36.0-66.0); PLATELET COUNT, AUTOMATED 300 k/mm3 (150-450); RED CELL DISTRIBUTION WIDTH 14.1 % (11.5-14.5); WHITE BLOOD COUNT 5.5 K/mm3 (4.0-10.0)
[2016-09-01 06:58] LABS: ALBUMIN 2.8 GM/DL (3.2-5.2); ALBUMIN/GLOBULIN RATIO 0.74 (1.00-1.93); ALKALINE PHOSPHATASE 86 U/L (45-117); ALT/SGPT 24 U/L (12-78); ANION GAP 5 MEQ/L (8-16); AST/SGOT 12 U/L (15-37); BILIRUBIN,TOTAL 0.1 MG/DL (0.2-1.0); BLOOD UREA NITROGEN 12 MG/DL (7-18); CALCIUM LEVEL 8.6 MG/DL (8.5-10.1); CARBON DIOXIDE LEVEL 32 MEQ/L (21-32); CHLORIDE LEVEL 103 MEQ/L (98-107); GLOMERULAR FILTRATION RATE > 60.0 (>60); GLUCOSE, FASTING 81 MG/DL (70-105); MAGNESIUM LEVEL 2.1 MG/DL (1.8-2.4); POTASSIUM SERUM 3.8 MEQ/L (3.5-5.1); SODIUM LEVEL 140 MEQ/L (136-145); TOTAL PROTEIN 6.6 GM/DL (6.4-8.2)
[2016-09-01] MEDS: ALBUTEROL SULFATE 2.5 MG/0.5 ML INH NEB SOLN NEB SCH ×3 (07:02→23:05)
[2016-09-01] MEDS: FERROUS SULFATE 325MG TAB PO SCH ×2 (08:57→20:58)
[2016-09-01] MEDS: LACTOBACILLUS ACIDOPHILUS CAP (BACID) PO SCH ×2 (08:57→20:58)
[2016-09-01] MEDS: levETIRAcetam 250MG TABLET (KEPPRA) PO SCH ×2 (08:57→21:00)
[2016-09-01] MEDS: GABAPENTIN 300 MG CAP PO SCH ×3 (08:57→21:00)
[2016-09-01] MEDS: SENOKOT S TAB PO SCH ×2 (08:58→20:58)
[2016-09-01] MEDS: oxyCODONE 40 MG CR TAB PO SCH ×2 (08:58→20:59)
[2016-09-01] MEDS: ENOXAPARIN 30 MG/0.3 ML SYR (J1650) SC SCH (08:59)
[2016-09-01] MEDS: NICOTINE POLACRILEX 2 MG GUM PO PRN (09:09)
--- NOTE | 2016-09-01 10:56 | IPNPDOC ---
Subjective Date Seen The patient was seen on 09/01/16. Subjective Chief Complaint/HPI The patient is a 36-year-old male admitted with a reason for visit of Sepsis Due To Uti. General: Denies: Chills, Night Sweats Constitutional: Reports: Malaise, Denies: Chills, Night Sweats Eyes: Denies: Conjunctivae inflammation, Eyelid inflammation, Redness, Vision change ENT: Denies: Head Aches Skin: Denies: Jaundice, Lesions, Rash Pulmonary: Denies: Cough, Dyspnea Cardiovascular: Denies: Edema, Palpitations Gastrointestinal: Denies: Nausea, Vomiting Genitourinary: Denies: Dysuria Musculoskeletal: Reports: Other Symptoms (complains of b/l leg pain- sharp pain radiating down both legs, front and back. ) Neurological: Reports: Numbness (b/l LE), Weakness (b/l LE) Psych: Reports: Mood Normal, Denies: Anxiety, Depression Objective Physical Examination General Exam: Positive: Alert, Cooperative, Mild Distress Eye Exam: Positive: Conjunctiva & lids normal, EOMI, Negative: Ptosis, Sclera icteric ENT Exam: Positive: Atraumatic, Mucous membr. moist/pink, Nares Patent, Tongue Midline Neck Exam: Positive: Supple Chest Exam: Positive: Clear to auscultation, Normal air movement, Negative: Rales, Rhonchi, Wheezing Heart Exam: Positive: Normal S1, Normal S2, Rate Normal, Negative: Bradycardic, Gallops, Murmurs, Rubs, Tachycardic Abdomen Exam: Positive: Normal bowel sounds, Soft, Negative: Hepatospenomegaly, Tenderness Extremity Exam: Positive: Normal pulses, Negative: Clubbing, Cyanosis, Edema Skin Exam: Positive: Nl turgor and temperature, Negative: Breakdown, Rash Psych Exam: Positive: Mental status NL Assessment /Plan Problems (1) Urinary tract infection Status: Acute Problem Text: patient carries history of multiple recurrent UTI's has chronic indwelling caputo cath-replaced during hospital stay clear yellow urine at bedside in cath. bag s/p leukocytosis ID on consult-appreciate their recommendations urine culture positive for pseudomonas on 08-24-16- mays resistant to multiple abx., currently on ceftazidime-continue current therapy (2) Multiple sclerosis Status: Chronic Response to Treatment: Stable Problem Text: pseud-exacerbation given acute infection at this time continue gabapentin, keppra and oxycodone with diazepam medical therapy pain mgmt consulted-appreciate their input will continue with regimen at this time and avoid changing pain medications right now (3) Chronic pain Status: Chronic Problem Text: pt complains of b/l LE pain, sharp, shooting down left and right LE, chronic pain control Oxycodone, will continue current treatment and continue to monitor (4) Normocytic anemia Status: Chronic Response to Treatment: Stable Problem Text: likely 2/2 iron deficient anemia continue with ferrous sulfate (5) Sacral decubitus ulcer Status: Chronic Response to Treatment: Stable Problem Text: s/p wound care continue to monitor (6) Chronic asthma Status: Chronic Response to Treatment: Stable Problem Text: continue with inhaled therapy (7) Insomnia Status: Chronic Response to Treatment: Stable Problem Text: continue with zolpidem (8) DVT prophylaxis Status: Acute Problem Text: lovenox Plan/VTE VTE Prophylaxis Ordered?: Yes Plan/Urinary Catheter Reason for insertion/continuin: Acute obstruct/retention VS, I&O, 24H, [facility] Vital Signs/I&O Vital Signs Date Time Temp Pulse Resp B/P Pulse Ox O2 Delivery O2 Flow Rate FiO2 09/01/16 08:58 18 09/01/16 06:00 98.5 75 124/75 98 Room Air I&O- Last 24 Hours up to 6 AM 09/01/16 06:00 Intake Total 4945 ml Output Total 4225 ml Balance 720 ml Laboratory Data 24H LABS Laboratory Tests 2 09/01/16 06:07: Blood Urea Nitrogen 12, Creatinine 0.50L, Sodium Level 140, Potassium Level 3.8 , Chloride Level 103, Carbon Dioxide Level 32, Calcium Level 8.6, Aspartate Amino Transf (AST/SGOT) 12L, Alanine Aminotransferase (ALT/SGPT) 24, Alkaline Phosphatase 86, Total Bilirubin 0.1L, Total Protein 6.6, Albumin 2.8L, Albumin/ Globulin Ratio 0.74L, Anion Gap 5L, White Blood Count 5.5, Red Blood Count 3.85L , Hemoglobin 10.9L, Hematocrit 33.5L, Mean Corpuscular Volume 87.0, Mean Corpuscular Hemoglobin 28.4, Mean Corpuscular Hemoglobin Concent 32.7, Red Cell Distribution Width 14.1, Platelet Count 300, Neutrophils (%) (Auto) 30.7L, Lymphocytes (%) (Auto) 52.9H, Monocytes (%) (Auto) 5.7H, Eosinophils (%) (Auto) 6.4H, Basophils (%) (Auto) 0.6, Neutrophils # (Auto) 1.7L, Lymphocytes # (Auto) 3.1, Monocytes # (Auto) 0.3, Eosinophils # (Auto) 0.4, Basophils # (Auto) 0.0, Glomerular Filtration Rate > 60.0, Large Unclassified Cells # 0.2, Large Unclassified Cells % 3.7, Magnesium Level 2.1 CBC/BMP Laboratory Tests 09/01/16 06:07 Calcium Level 8.6, Aspartate Amino Transf (AST/SGOT) 12 L, Alanine Aminotransferase (ALT/SGPT) 24, Alkaline Phosphatase 86, Total Bilirubin 0.1 L, Total Protein 6.6, Albumin 2.8 L, Red Blood Count 3.85 L, Mean Corpuscular Volume 87.0, Mean Corpuscular Hemoglobin 28.4, Mean Corpuscular Hemoglobin Concent 32.7, Red Cell Distribution Width 14.1, Neutrophils (%) (Auto) 30.7 L, Lymphocytes (%) (Auto) 52.9 H, Monocytes (%) (Auto) 5.7 H, Eosinophils (%) (Auto ) 6.4 H, Basophils (%) (Auto) 0.6, Neutrophils # (Auto) 1.7 L, Lymphocytes # ( Auto) 3.1, Monocytes # (Auto) 0.3, Eosinophils # (Auto) 0.4, Basophils # (Auto) 0.0 Microbiology Microbiology 08/24/16 Blood Culture - Final, Complete NO GROWTH AFTER 5 DAYS 08/24/16 Blood Culture - Final, Complete NO GROWTH AFTER 5 DAYS 08/24/16 Urine Culture - Final, Complete Pseudomonas Aeruginosa GME ATTESTATION GME ATTESTATION My preceptor for this patient encounter was physically present in the building during the encounter and was fully available. As needed, all aspects of the patient interview, examination, medical decision making process, and medical care plan development were reviewed and approved by the preceptor. Preceptor is aware and concurs with the plan as stated in the body of this note and will attest to such by his/her cosignature. ALONDRA CALHOUN DO Sep 01, 2016 10:56
[2016-09-01 11:43] LABS: ERYTHROCYTE SEDIMENTATION RATE 56 mm/hr (0-15)
[2016-09-01 14:00] VITALS: BP 119/71
[2016-09-01 22:00] VITALS: BP 118/70
[2016-09-01] MEDS: diazePAM 10 MG TAB PO PRN (23:35)
[2016-09-01] MEDS: zolPIDEM TARTRATE 5 MG TAB PO PRN (23:35)
[2016-09-02] MEDS: cefTAZidime 2 GM in D5W MINI-BAG PLUS 100 ML IV SCH ×3 (01:31→18:15)
[2016-09-02] MEDS: NS 1,000 ML IV SCH ×2 (04:19→17:39)
[2016-09-02 06:00] VITALS: BP 111/58
[2016-09-02 06:25] LABS: BASO % 0.5 % (0.0-1.0); EOS # 0.4 K/mm3 (0.0-0.50); EOS % 5.3 % (0.0-3.0); LARGE UNSTAINED CELL # 0.1 K/mm3 (0.0-0.4); LARGE UNSTAINED CELL % 1.5 % (0.0-4.0); LYMPH # 3.2 K/mm3 (1.5-4.5); LYMPH % 42.4 % (24.0-44.0); MEAN CORPUSCULAR HGB CONC 33.3 g/dl (32.0-36.5); MEAN CORPUSCULAR VOLUME 87.1 fl (80.0-96.0); MONO # 0.3 K/mm3 (0.0-0.8); MONO % 4.8 % (0.0-5.0); NEUTROPHILS # 3.3 K/mm3 (1.8-7.7); NEUTROPHILS % 45.5 % (36.0-66.0); PLATELET COUNT, AUTOMATED 301 k/mm3 (150-450); RED CELL DISTRIBUTION WIDTH 14.1 % (11.5-14.5); WHITE BLOOD COUNT 7.2 K/mm3 (4.0-10.0)
[2016-09-02 06:46] LABS: ALBUMIN 3.3 GM/DL (3.2-5.2); ALBUMIN/GLOBULIN RATIO 0.94 (1.00-1.93); ALKALINE PHOSPHATASE 101 U/L (45-117); ALT/SGPT 29 U/L (12-78); ANION GAP 9 MEQ/L (8-16); AST/SGOT 18 U/L (15-37); BILIRUBIN,TOTAL 0.2 MG/DL (0.2-1.0); BLOOD UREA NITROGEN 11 MG/DL (7-18); CALCIUM LEVEL 8.6 MG/DL (8.5-10.1); CARBON DIOXIDE LEVEL 28 MEQ/L (21-32); CHLORIDE LEVEL 103 MEQ/L (98-107); CREATININE FOR GFR 0.54 MG/DL (0.70-1.30); GLOMERULAR FILTRATION RATE > 60.0 (>60); GLUCOSE, FASTING 102 MG/DL (70-105); MAGNESIUM LEVEL 2.1 MG/DL (1.8-2.4); POTASSIUM SERUM 3.9 MEQ/L (3.5-5.1); SODIUM LEVEL 140 MEQ/L (136-145); TOTAL PROTEIN 6.8 GM/DL (6.4-8.2)
[2016-09-02] MEDS: oxyCODONE 5MG TAB PO PRN ×2 (07:42→16:17)
[2016-09-02] MEDS: ALBUTEROL SULFATE 2.5 MG/0.5 ML INH NEB SOLN NEB SCH ×3 (07:50→23:57)
[2016-09-02] MEDS: SENOKOT S TAB PO SCH ×2 (09:47→20:35)
[2016-09-02] MEDS: LACTOBACILLUS ACIDOPHILUS CAP (BACID) PO SCH ×2 (09:47→20:35)
[2016-09-02] MEDS: GABAPENTIN 300 MG CAP PO SCH ×3 (09:48→20:35)
[2016-09-02] MEDS: levETIRAcetam 250MG TABLET (KEPPRA) PO SCH ×2 (09:48→20:35)
[2016-09-02] MEDS: FERROUS SULFATE 325MG TAB PO SCH ×2 (09:48→20:34)
[2016-09-02] MEDS: BISACODYL 5 MG TAB PO PRN (09:48)
[2016-09-02] MEDS: oxyCODONE 40 MG CR TAB PO SCH (09:49)
[2016-09-02] MEDS: diazePAM 10 MG TAB PO PRN ×2 (10:19→20:35)
[2016-09-02] MEDS: NICOTINE POLACRILEX 2 MG GUM PO PRN ×2 (10:20→22:15)
--- NOTE | 2016-09-02 10:33 | IPNPDOC ---
Subjective Date Seen The patient was seen on 09/02/16. Subjective Chief Complaint/HPI The patient is a 36-year-old male admitted with a reason for visit of Sepsis Due To Uti.. General: Denies: Chills, Night Sweats Constitutional: Reports: Malaise (describes continued chronic b/l LE pain/ tingling), Weakness (b/l LE chronic), Denies: Chills, Fever Eyes: Denies: Conjunctivae inflammation, Eyelid inflammation, Pain, Redness, Vision change ENT: Denies: Head Aches Skin: Denies: Jaundice, Lesions, Rash Pulmonary: Denies: Cough, Dyspnea, Pleuritic Chest Pain Cardiovascular: Denies: Chest Pain, Edema, Orthopnea, Palpitations, Paroxysmal Noc. Dyspnea Gastrointestinal: Denies: Abdominal Pain, Constipation, Diarrhea, Nausea, Vomiting Psych: Reports: Mood Normal Objective Physical Examination General Exam: Positive: Alert, Cooperative, Mild Distress Eye Exam: Positive: Conjunctiva & lids normal, EOMI, Negative: Ptosis, Sclera icteric ENT Exam: Positive: Atraumatic, Mucous membr. moist/pink, Nares Patent, Tongue Midline Neck Exam: Positive: Supple Chest Exam: Positive: Clear to auscultation, Normal air movement, Negative: Rales, Rhonchi, Wheezing Heart Exam: Positive: Normal S1, Normal S2, Rate Normal, Negative: Bradycardic, Gallops, Murmurs, Rubs, Tachycardic Abdomen Exam: Positive: Normal bowel sounds, Soft, Negative: Hepatospenomegaly, Tenderness Extremity Exam: Positive: Normal pulses, Negative: Clubbing, Cyanosis, Edema, Swelling Skin Exam: Positive: Nl turgor and temperature, Negative: Breakdown, Rash Psych Exam: Positive: Mental status NL, Oriented x 3 Assessment /Plan Problems (1) Urinary tract infection Status: Acute Problem Text: continue with ceftazidime treatment -WBC 7.2 today. patient carries history of multiple recurrent UTI's has chronic indwelling caputo cath-replaced during hospital stay s/p leukocytosis ID on consult-appreciate their recommendations urine culture positive for pseudomonas on 08-24-16- mays resistant to multiple abx., currently on ceftazidime-continue current therapy (2) Multiple sclerosis Status: Chronic Response to Treatment: Stable Problem Text: pseud-exacerbation given acute infection at this time continue gabapentin, keppra and oxycodone with diazepam medical therapy pain mgmt consulted-appreciate their input will continue with regimen at this time and avoid changing pain medications right now (3) Chronic pain Status: Chronic Problem Text: pt complains of b/l LE pain, sharp, shooting down left and right LE, chronic pain control Oxycodone will change to patients home oxycodone 30 mg q4h with max 5 per day, will d/c oxycontin (4) Normocytic anemia Status: Chronic Response to Treatment: Stable Problem Text: likely 2/2 iron deficient anemia continue with ferrous sulfate (5) Sacral decubitus ulcer Status: Chronic Response to Treatment: Stable Problem Text: s/p wound care continue to monitor (6) Chronic asthma Status: Chronic Response to Treatment: Stable Problem Text: continue with inhaled therapy (7) Insomnia Status: Chronic Response to Treatment: Stable Problem Text: continue with zolpidem (8) DVT prophylaxis Status: Acute Problem Text: lovenox Plan/VTE VTE Prophylaxis Ordered?: Yes Plan/Urinary Catheter Reason for insertion/continuin: Acute obstruct/retention VS, I&O, 24H, [facility] Vital Signs/I&O Vital Signs Date Time Temp Pulse Resp B/P Pulse Ox O2 Delivery O2 Flow Rate FiO2 09/02/16 09:49 18 Room Air 09/02/16 06:00 99.1 68 111/58 95 I&O- Last 24 Hours up to 6 AM 09/02/16 06:00 Intake Total 1845 ml Output Total 4550 ml Balance -2705 ml Laboratory Data 24H LABS Laboratory Tests 2 09/02/16 05:46: Blood Urea Nitrogen 11, Creatinine 0.54L, Sodium Level 140, Potassium Level 3.9 , Chloride Level 103, Carbon Dioxide Level 28, Calcium Level 8.6, Aspartate Amino Transf (AST/SGOT) 18, Alanine Aminotransferase (ALT/SGPT) 29, Alkaline Phosphatase 101, Total Bilirubin 0.2#, Total Protein 6.8, Albumin 3.3, Albumin/ Globulin Ratio 0.94L, Anion Gap 9, White Blood Count 7.2, Red Blood Count 3.91L , Hemoglobin 11.4L, Hematocrit 34.1L, Mean Corpuscular Volume 87.1, Mean Corpuscular Hemoglobin 29.0, Mean Corpuscular Hemoglobin Concent 33.3, Red Cell Distribution Width 14.1, Platelet Count 301, Neutrophils (%) (Auto) 45.5, Lymphocytes (%) (Auto) 42.4, Monocytes (%) (Auto) 4.8, Eosinophils (%) (Auto) 5.3H, Basophils (%) (Auto) 0.5, Neutrophils # (Auto) 3.3, Lymphocytes # (Auto) 3.2, Monocytes # (Auto) 0.3, Eosinophils # (Auto) 0.4, Basophils # (Auto) 0.0, Glomerular Filtration Rate > 60.0, Large Unclassified Cells # 0.1, Large Unclassified Cells % 1.5, Magnesium Level 2.1 CBC/BMP Laboratory Tests 09/02/16 05:46 Calcium Level 8.6, Aspartate Amino Transf (AST/SGOT) 18, Alanine Aminotransferase (ALT/SGPT) 29, Alkaline Phosphatase 101, Total Bilirubin 0.2 # , Total Protein 6.8, Albumin 3.3, Red Blood Count 3.91 L, Mean Corpuscular Volume 87.1, Mean Corpuscular Hemoglobin 29.0, Mean Corpuscular Hemoglobin Concent 33.3, Red Cell Distribution Width 14.1, Neutrophils (%) (Auto) 45.5, Lymphocytes (%) (Auto) 42.4, Monocytes (%) (Auto) 4.8, Eosinophils (%) (Auto) 5.3 H, Basophils (%) (Auto) 0.5, Neutrophils # (Auto) 3.3, Lymphocytes # (Auto) 3.2, Monocytes # (Auto) 0.3, Eosinophils # (Auto) 0.4, Basophils # (Auto) 0.0 Microbiology Microbiology 08/24/16 Blood Culture - Final, Complete NO GROWTH AFTER 5 DAYS 08/24/16 Blood Culture - Final, Complete NO GROWTH AFTER 5 DAYS 08/24/16 Urine Culture - Final, Complete Pseudomonas Aeruginosa GME ATTESTATION GME ATTESTATION My preceptor for this patient encounter was physically present in the building during the encounter and was fully available. As needed, all aspects of the patient interview, examination, medical decision making process, and medical care plan development were reviewed and approved by the preceptor. Preceptor is aware and concurs with the plan as stated in the body of this note and will attest to such by his/her cosignature. ALONDRA CALHOUN DO Sep 02, 2016 10:32
[2016-09-02] MEDS: ENOXAPARIN 30 MG/0.3 ML SYR (J1650) SC SCH (11:34)
[2016-09-02 14:00] VITALS: BP 107/70
[2016-09-02] MEDS: zolPIDEM TARTRATE 5 MG TAB PO PRN (20:34)
--- NOTE | 2016-09-02 21:19 | IPN ---
INFECTIOUS DISEASE PROGRESS NOTE: DATE OF SERVICE: 09/02/2016 Seth seems to be doing better. He has had no fever or chills. No nausea, vomiting or diarrhea. He actually does complain of being constipated and he thinks he may need an enema. He is also complaining of not having physical therapy (PT) and occupational therapy (OT) done in the hospital or at home. He would like to have that reinstated. LABORATORY DATA: White count is 7.2, hemoglobin 11.4, hematocrit 34.1, platelets 301, 45% neutrophils, 42% lymphocytes, 5% monocytes. Sodium 140, potassium 3.9, chloride 103, bicarb 28, BUN 11, creatinine 0.54, glucose 102, calcium 8.6, magnesium 2.1, AST 18, ALT 29, alkaline phosphatase 101, micro: Pseudomonas aeruginosa on urine culture which was multidrug resistant, except for ceftazidime which is very concerning even though the patient improved with meropenem. Currently he is day number 8 of meropenem. IMPRESSION: 1. Multidrug resistant Pseudomonas; on IV meropenem. The patient will continue 10 days of therapy that should finish on 09/04. 2. Multiple sclerosis, complaining of not having of the OT and PT at home. Will discuss with social work. 3. Constipation. The patient probably would benefit from fleet enema PLAN: Continue IV ceftazidime until 09/04 and the patient could be discharged home from an infectious disease standpoint. The patient is requesting change of his urinary catheter every two weeks. I asked him to discuss that with Dr. Conti who is his urologist. DORA
[2016-09-02 22:00] VITALS: BP 135/73
[2016-09-03] MEDS: cefTAZidime 2 GM in D5W MINI-BAG PLUS 100 ML IV SCH ×3 (01:45→17:03)
[2016-09-03] MEDS: oxyCODONE 5MG TAB PO PRN ×3 (01:48→20:32)
[2016-09-03 06:00] VITALS: BP 142/62
[2016-09-03] MEDS: NS 1,000 ML IV SCH ×2 (06:46→17:03)
[2016-09-03 07:12] LABS: BASO # 0.1 K/mm3 (0.0-0.2); BASO % 0.7 % (0.0-1.0); EOS # 0.4 K/mm3 (0.0-0.50); EOS % 4.5 % (0.0-3.0); LARGE UNSTAINED CELL # 0.1 K/mm3 (0.0-0.4); LARGE UNSTAINED CELL % 1.7 % (0.0-4.0); LYMPH % 35.1 % (24.0-44.0); MEAN CORPUSCULAR HEMOGLOBIN 28.8 pg (27.0-33.0); MEAN CORPUSCULAR HGB CONC 33.1 g/dl (32.0-36.5); MONO # 0.4 K/mm3 (0.0-0.8); MONO % 5.1 % (0.0-5.0); NEUTROPHILS # 4.3 K/mm3 (1.8-7.7); NEUTROPHILS % 52.9 % (36.0-66.0); PLATELET COUNT, AUTOMATED 342 k/mm3 (150-450); RED CELL DISTRIBUTION WIDTH 13.9 % (11.5-14.5); WHITE BLOOD COUNT 8.1 K/mm3 (4.0-10.0)
[2016-09-03 07:48] LABS: ALBUMIN/GLOBULIN RATIO 0.79 (1.00-1.93); ALKALINE PHOSPHATASE 90 U/L (45-117); ALT/SGPT 31 U/L (12-78); ANION GAP 4 MEQ/L (8-16); AST/SGOT 26 U/L (15-37); BILIRUBIN,TOTAL 0.2 MG/DL (0.2-1.0); BLOOD UREA NITROGEN 10 MG/DL (7-18); CARBON DIOXIDE LEVEL 33 MEQ/L (21-32); CHLORIDE LEVEL 105 MEQ/L (98-107); CREATININE FOR GFR 0.59 MG/DL (0.70-1.30); GLOMERULAR FILTRATION RATE > 60.0 (>60); GLUCOSE, FASTING 77 MG/DL (70-105); POTASSIUM SERUM 3.9 MEQ/L (3.5-5.1); SODIUM LEVEL 142 MEQ/L (136-145); TOTAL PROTEIN 6.8 GM/DL (6.4-8.2)
[2016-09-03] MEDS: ALBUTEROL SULFATE 2.5 MG/0.5 ML INH NEB SOLN NEB SCH ×2 (07:48→15:53)
[2016-09-03] MEDS: ENOXAPARIN 30 MG/0.3 ML SYR (J1650) SC SCH (09:24)
[2016-09-03] MEDS: GABAPENTIN 300 MG CAP PO SCH ×3 (09:24→20:30)
[2016-09-03] MEDS: levETIRAcetam 250MG TABLET (KEPPRA) PO SCH ×2 (09:24→20:30)
[2016-09-03] MEDS: LACTOBACILLUS ACIDOPHILUS CAP (BACID) PO SCH ×2 (09:24→20:30)
[2016-09-03] MEDS: FERROUS SULFATE 325MG TAB PO SCH ×2 (09:24→20:30)
[2016-09-03] MEDS: SENOKOT S TAB PO SCH ×2 (09:24→20:30)
--- NOTE | 2016-09-03 10:16 | IPNPDOC ---
Subjective Date Seen The patient was seen on 09/03/16. Subjective Chief Complaint/HPI The patient is a 36-year-old male admitted with a reason for visit of Sepsis Due To Uti.. General: Reports: Fatigue, Malaise (B/L LE PAIN CHRONIC), Denies: Chills, Night Sweats Constitutional: Denies: Chills, Fever Eyes: Denies: Conjunctivae inflammation, Eyelid inflammation, Pain, Redness, Vision change ENT: Denies: Head Aches Skin: Denies: Jaundice, Lesions, Rash Pulmonary: Denies: Cough, Dyspnea, Pleuritic Chest Pain Cardiovascular: Denies: Chest Pain, Edema, Orthopnea, Palpitations Gastrointestinal: Denies: Abdominal Pain, Constipation, Diarrhea, Nausea, Vomiting Neurological: Reports: Numbness (bl le chronic), Weakness (b/l le chronic) Psych: Reports: Depression (pt admits he is dealing with some "emotions" regarding his apparent negative relationship with his mother), Denies: Mood Normal Objective Physical Examination General Exam: Positive: Alert, Cooperative, Mild Distress Eye Exam: Positive: Conjunctiva & lids normal, EOMI, Negative: Ptosis, Sclera icteric ENT Exam: Positive: Atraumatic, Mucous membr. moist/pink, Nares Patent, Tongue Midline Neck Exam: Positive: Supple Chest Exam: Positive: Clear to auscultation, Normal air movement, Negative: Rales, Rhonchi, Wheezing Heart Exam: Positive: Normal S1, Normal S2, Rate Normal, Negative: Bradycardic, Gallops, Murmurs, Rubs, Tachycardic Abdomen Exam: Positive: Normal bowel sounds, Soft, Negative: Hepatospenomegaly, Tenderness Extremity Exam: Positive: Normal pulses, Negative: Clubbing, Cyanosis, Edema, Swelling Skin Exam: Positive: Nl turgor and temperature, Negative: Breakdown, Rash Psych Exam: Positive: Mental status NL, Oriented x 3, Other (pt states he is a bit sad about his relationship with his mother, but does not want to speak with psychiatry or a counselor, denies suicidal thoughts or plan) Assessment /Plan Problems (1) Urinary tract infection Status: Acute Problem Text: we will continue with ceftazidime treatment -WBC 8.1 today. patient carries history of multiple recurrent UTI's has chronic indwelling caputo cath-replaced during hospital stay s/p leukocytosis ID on consult-appreciate their recommendations-will continue IV antibiotic treatment until 09-04-16 urine culture positive for pseudomonas on 08-24-16- mays resistant to multiple abx., currently on ceftazidime-continue current therapy (2) Multiple sclerosis Status: Chronic Response to Treatment: Stable Problem Text: pseud-exacerbation given acute infection at this time we continue gabapentin, keppra and oxycodone with diazepam medical therapy pain mgmt consulted-appreciate their input will continue with regimen at this time and avoid changing pain medications right now, pt's oxycontin was d/c one day ago as he stated it gave him headaches , have put him back on his home dose of oxycodone 30 (3) Chronic pain Status: Chronic Problem Text: pt complains of b/l LE pain, sharp, shooting down left and right LE, chronic pain control Oxycodone continue patients home oxycodone 30 mg q4h with max 5 per day, will d/c oxycontin (4) Normocytic anemia Status: Chronic Response to Treatment: Stable Problem Text: likely 2/2 iron deficient anemia continue with ferrous sulfate (5) Sacral decubitus ulcer Status: Chronic Response to Treatment: Stable Problem Text: s/p wound care continue to monitor (6) Chronic asthma Status: Chronic Response to Treatment: Stable Problem Text: continue with inhaled therapy (7) Insomnia Status: Chronic Response to Treatment: Stable Problem Text: continue with zolpidem (8) DVT prophylaxis Status: Acute Problem Text: lovenox Plan/VTE VTE Prophylaxis Ordered?: Yes Plan/Urinary Catheter Reason for insertion/continuin: Acute obstruct/retention VS, I&O, 24H, [facility] Vital Signs/I&O Vital Signs Date Time Temp Pulse Resp B/P Pulse Ox O2 Delivery O2 Flow Rate FiO2 09/03/16 09:24 18 09/03/16 06:00 97.9 70 142/62 97 Room Air I&O- Last 24 Hours up to 6 AM 09/03/16 05:59 Intake Total 4160 ml Output Total 3000 ml Balance 1160 ml Laboratory Data 24H LABS Laboratory Tests 2 09/03/16 06:32: Blood Urea Nitrogen 10, Creatinine 0.59L, Sodium Level 142, Potassium Level 3.9 , Chloride Level 105, Carbon Dioxide Level 33H, Calcium Level 9.0, Aspartate Amino Transf (AST/SGOT) 26, Alanine Aminotransferase (ALT/SGPT) 31, Alkaline Phosphatase 90, Total Bilirubin 0.2, Total Protein 6.8, Albumin 3.0L, Albumin/ Globulin Ratio 0.79L, Anion Gap 4L, White Blood Count 8.1, Red Blood Count 3.99L , Hemoglobin 11.5L, Hematocrit 34.8L, Mean Corpuscular Volume 87.0, Mean Corpuscular Hemoglobin 28.8, Mean Corpuscular Hemoglobin Concent 33.1, Red Cell Distribution Width 13.9, Platelet Count 342, Neutrophils (%) (Auto) 52.9, Lymphocytes (%) (Auto) 35.1, Monocytes (%) (Auto) 5.1H, Eosinophils (%) (Auto) 4.5H, Basophils (%) (Auto) 0.7, Neutrophils # (Auto) 4.3, Lymphocytes # (Auto) 3.0, Monocytes # (Auto) 0.4, Eosinophils # (Auto) 0.4, Basophils # (Auto) 0.1, Glomerular Filtration Rate > 60.0, Large Unclassified Cells # 0.1, Large Unclassified Cells % 1.7, Magnesium Level 2.0 CBC/BMP Laboratory Tests 09/03/16 06:32 Calcium Level 9.0, Aspartate Amino Transf (AST/SGOT) 26, Alanine Aminotransferase (ALT/SGPT) 31, Alkaline Phosphatase 90, Total Bilirubin 0.2, Total Protein 6.8, Albumin 3.0 L, Red Blood Count 3.99 L, Mean Corpuscular Volume 87.0, Mean Corpuscular Hemoglobin 28.8, Mean Corpuscular Hemoglobin Concent 33.1, Red Cell Distribution Width 13.9, Neutrophils (%) (Auto) 52.9, Lymphocytes (%) (Auto) 35.1, Monocytes (%) (Auto) 5.1 H, Eosinophils (%) (Auto) 4.5 H, Basophils (%) (Auto) 0.7, Neutrophils # (Auto) 4.3, Lymphocytes # (Auto) 3.0, Monocytes # (Auto) 0.4, Eosinophils # (Auto) 0.4, Basophils # (Auto) 0.1 Microbiology Microbiology 08/24/16 Blood Culture - Final, Complete NO GROWTH AFTER 5 DAYS 08/24/16 Blood Culture - Final, Complete NO GROWTH AFTER 5 DAYS 08/24/16 Urine Culture - Final, Complete Pseudomonas Aeruginosa GME ATTESTATION GME ATTESTATION My preceptor for this patient encounter was physically present in the building during the encounter and was fully available. As needed, all aspects of the patient interview, examination, medical decision making process, and medical care plan development were reviewed and approved by the preceptor. Preceptor is aware and concurs with the plan as stated in the body of this note and will attest to such by his/her cosignature. ALONDRA CALHOUN DO Sep 03, 2016 10:16
[2016-09-03] MEDS: FLEET ENEMA PR PRN (10:57)
[2016-09-03 14:00] VITALS: BP 132/78
[2016-09-03] MEDS: diazePAM 10 MG TAB PO PRN (20:30)
[2016-09-03 22:00] VITALS: BP 118/68
[2016-09-03] MEDS: zolPIDEM TARTRATE 5 MG TAB PO PRN (23:09)
[2016-09-04] MEDS: cefTAZidime 2 GM in D5W MINI-BAG PLUS 100 ML IV SCH ×2 (01:36→09:34)
[2016-09-04] MEDS: NICOTINE POLACRILEX 2 MG GUM PO PRN ×2 (02:47→10:32)
[2016-09-04 06:00] VITALS: BP 125/70
[2016-09-04 06:11] LABS: BASO % 0.7 % (0.0-1.0); EOS # 0.3 K/mm3 (0.0-0.50); EOS % 4.9 % (0.0-3.0); LARGE UNSTAINED CELL # 0.2 K/mm3 (0.0-0.4); LARGE UNSTAINED CELL % 2.4 % (0.0-4.0); MEAN CORPUSCULAR HEMOGLOBIN 28.9 pg (27.0-33.0); MEAN CORPUSCULAR HGB CONC 33.3 g/dl (32.0-36.5); MEAN CORPUSCULAR VOLUME 86.6 fl (80.0-96.0); MONO # 0.4 K/mm3 (0.0-0.8); MONO % 6.3 % (0.0-5.0); NEUTROPHILS # 2.9 K/mm3 (1.8-7.7); NEUTROPHILS % 43.6 % (36.0-66.0); PLATELET COUNT, AUTOMATED 356 k/mm3 (150-450); RED CELL DISTRIBUTION WIDTH 14.1 % (11.5-14.5); WHITE BLOOD COUNT 6.7 K/mm3 (4.0-10.0)
[2016-09-04 06:31] LABS: ALBUMIN 2.9 GM/DL (3.2-5.2); ALBUMIN/GLOBULIN RATIO 0.88 (1.00-1.93); ALKALINE PHOSPHATASE 92 U/L (45-117); ALT/SGPT 31 U/L (12-78); ANION GAP 8 MEQ/L (8-16); AST/SGOT 26 U/L (15-37); BILIRUBIN,TOTAL 0.2 MG/DL (0.2-1.0); BLOOD UREA NITROGEN 8 MG/DL (7-18); CALCIUM LEVEL 8.6 MG/DL (8.5-10.1); CARBON DIOXIDE LEVEL 28 MEQ/L (21-32); CHLORIDE LEVEL 107 MEQ/L (98-107); CREATININE FOR GFR 0.46 MG/DL (0.70-1.30); GLOMERULAR FILTRATION RATE > 60.0 (>60); GLUCOSE, FASTING 74 MG/DL (70-105); POTASSIUM SERUM 3.7 MEQ/L (3.5-5.1); SODIUM LEVEL 143 MEQ/L (136-145); TOTAL PROTEIN 6.2 GM/DL (6.4-8.2)
[2016-09-04] MEDS: ALBUTEROL SULFATE 2.5 MG/0.5 ML INH NEB SOLN NEB SCH ×2 (07:15)
[2016-09-04] MEDS: NS 1,000 ML IV SCH (09:34)
[2016-09-04] MEDS: GABAPENTIN 300 MG CAP PO SCH (09:34)
[2016-09-04] MEDS: ENOXAPARIN 30 MG/0.3 ML SYR (J1650) SC SCH (09:34)
[2016-09-04] MEDS: levETIRAcetam 250MG TABLET (KEPPRA) PO SCH (09:35)
[2016-09-04] MEDS: SENOKOT S TAB PO SCH (09:35)
[2016-09-04] MEDS: LACTOBACILLUS ACIDOPHILUS CAP (BACID) PO SCH (09:35)
[2016-09-04] MEDS: FERROUS SULFATE 325MG TAB PO SCH (09:35)
[2016-09-04] MEDS ORDERED: BISA5TAB7 PO (09:49)
[2016-09-04] MEDS ORDERED: OXYCO5TA PO (09:49)
--- NOTE | 2016-09-04 10:05 | DS.PDOC ---
Discharge Summary General Date of Admission Aug 24, 2016 at 01:38 Date of Discharge September 02, 2016 Discharge Summary Discharge Summary PROCEDURES PERFORMED DURING STAY: None. ADMITTING DIAGNOSES: 1. Sepsis secondary to urinary tract infection secondary to chronic indwelling Coburn catheter 2. Tractable back pain acute on chronic please secondary to multiple sclerosis excaberation 3. Normocytic anemia 4. Multiple sclerosis 5. Chronic asthma 6. Sacral ulcer 7. Urinary retention with neurogenic bladder 8. Malnutrition 9. Chronic constipation DISCHARGE DIAGNOSES: 1. Sepsis likely secondary to urinary tract infection from chronic indwelling Coburn catheter 2. Intractable back pain acute on chronic 3. Multiple sclerosis COMPLICATIONS/CHIEF COMPLAINT: Sepsis Due To Uti. HISTORY OF PRESENT ILLNESS: . The patient is a 36-year-old male who presented to the emergency department on 08/24/2016 for complaints of severe back pain. HOSPITAL COURSE: During the course of the patient's stay he has received IV antibiotic therapy for his sepsis secondary to his urinary tract infection. He has complained daily of chronic low back and bilateral leg pain, due to his multiple sclerosis. He has been treated with pain medication to control this during his admission. Infectious disease was consulted to see the patient due to his history of recurrent urinary tract infections that worsened the pain of his multiple sclerosis. He was originally started on meropenem antibiotic therapy. The patient was positive for multidrug-resistant Pseudomonas thus he was changed to ceftazidime antibiotic therapy. The patient may benefit from cystoscopy from his urologist to evaluate due to recurrent urinary tract infections. He should see his urologist upon discharge to also discuss changing of urinary catheter. Of note the patient did describe a difficult life situation regarding his mother, apparently this complex relationship makes him experience feelings of sadness. Upon questioning the patient adamantly stated that he did not have intentions nor plans or thoughts to hurt himself or others , he also refused to speak to a psychiatrist or counselor inpatient. On day of discharge the patient stated that the pain in his low back and legs was still present but unchanged, he said he was ready to go home. DISCHARGE MEDICATIONS: Please see below. ALLERGIES: Please see below. PHYSICAL EXAMINATION ON DISCHARGE: VITAL SIGNS: Please see below. GENERAL: Laying at 45 incline supine, affect is somewhat flat and monotonous this seems to be his baseline, conversant. HEENT: NCAT, nares patent bilaterally, EOMI, tongue midline, moist mucous membranes. NECK: Supple CARDIOVASCULAR EXAMINATION: Normal S1, S2, no murmurs, rubs, gallops appreciated. RESPIRATORY EXAMINATION: CTA bilaterally, no wheezing, rhonchi, rales appreciated. Good air expansion bilaterally. ABDOMINAL EXAMINATION: Soft, nontender, nondistended, NABSX4, no organomegaly appreciated SKIN: Intact NEUROLOGICAL EXAMINATION: No focal deficits appreciated PSYCHIATRIC EXAMINATION: Affect is appropriate, mood is congruent. LABORATORY DATA: Please see below. IMAGING: Abdominal x-ray 08/24/2016 Nonspecific bowel gas pattern. Possible fecal stasis and constipation. Thoracic spine CT 08/24/2016 Impression: No acute traumatic injury Lumbar spine CT 08/24/2016 Impression: Unremarkable CT examination of the lumbar spine. Abdomen and pelvis CT 08/24/2016 Impression: 1. Hepatomegaly. 2. Cholelithiasis, without evidence of acute cholecystitis. 3. Moderate constipation. 4. Urinary bladder is catheterized and contracted, but there appears to be circumferential bladder wall thickening. A 1.4 cm stone is seen within the urinary bladder, and is grossly stable. If there is further clinical concern, cystoscopy could be performed. Foot x-ray 08/27/2016 Impression: 1. Nondisplaced fracture of the fifth toe proximal phalanx. 2. Diffuse osteopenia out of proportion to age. PROGNOSIS: Favorable ACTIVITY: As tolerated DIET: As Tolerated DISCHARGE PLAN: Discharge home with follow-up to PCP within one week and urology within 2 weeks. DISPOSITION: HOME DISCHARGE INSTRUCTIONS: 1. follow-up with PCP within one week of discharge 2. Follow up with urology within 1-2 weeks of discharge ITEMS TO FOLLOWUP ON ON OUTPATIENT: 1. follow-up with PCP within one week of discharge 2. Follow up with urology within 1-2 weeks of discharge DISCHARGE CONDITION: [Stable]. ITEMS TO FOLLOWUP ON ON OUTPATIENT: 1. . 2. . 3. . DISCHARGE CONDITION: [Stable]. TIME SPENT ON DISCHARGE: Greater than minutes. Vital Signs/I&Os Vital Signs Date Time Temp Pulse Resp B/P Pulse Ox O2 Delivery O2 Flow Rate FiO2 09/04/16 06:00 99.2 69 16 125/70 95 Room Air I&O- Last 24 Hours up to 6 AM 09/04/16 06:00 Intake Total 3290 ml Output Total 3100 ml Balance 190 ml Laboratory Data Labs 24H Laboratory Tests 2 09/04/16 05:41: Blood Urea Nitrogen 8, Creatinine 0.46L, Sodium Level 143, Potassium Level 3.7, Chloride Level 107, Carbon Dioxide Level 28, Calcium Level 8.6, Aspartate Amino Transf (AST/SGOT) 26, Alanine Aminotransferase (ALT/SGPT) 31, Alkaline Phosphatase 92, Total Bilirubin 0.2, Total Protein 6.2L, Albumin 2.9L, Albumin/ Globulin Ratio 0.88L, Anion Gap 8, White Blood Count 6.7, Red Blood Count 4.02L , Hemoglobin 11.6L, Hematocrit 34.8L, Mean Corpuscular Volume 86.6, Mean Corpuscular Hemoglobin 28.9, Mean Corpuscular Hemoglobin Concent 33.3, Red Cell Distribution Width 14.1, Platelet Count 356, Neutrophils (%) (Auto) 43.6, Lymphocytes (%) (Auto) 42.0, Monocytes (%) (Auto) 6.3H, Eosinophils (%) (Auto) 4.9H, Basophils (%) (Auto) 0.7, Neutrophils # (Auto) 2.9, Lymphocytes # (Auto) 3.0, Monocytes # (Auto) 0.4, Eosinophils # (Auto) 0.3, Basophils # (Auto) 0.0, Glomerular Filtration Rate > 60.0, Large Unclassified Cells # 0.2, Large Unclassified Cells % 2.4, Magnesium Level 2.0 CBC/BMP Laboratory Tests 09/04/16 05:41 Calcium Level 8.6, Aspartate Amino Transf (AST/SGOT) 26, Alanine Aminotransferase (ALT/SGPT) 31, Alkaline Phosphatase 92, Total Bilirubin 0.2, Total Protein 6.2 L, Albumin 2.9 L, Red Blood Count 4.02 L, Mean Corpuscular Volume 86.6, Mean Corpuscular Hemoglobin 28.9, Mean Corpuscular Hemoglobin Concent 33.3, Red Cell Distribution Width 14.1, Neutrophils (%) (Auto) 43.6, Lymphocytes (%) (Auto) 42.0, Monocytes (%) (Auto) 6.3 H, Eosinophils (%) (Auto) 4.9 H, Basophils (%) (Auto) 0.7, Neutrophils # (Auto) 2.9, Lymphocytes # (Auto) 3.0, Monocytes # (Auto) 0.4, Eosinophils # (Auto) 0.3, Basophils # (Auto) 0.0 Discharge Medications Scheduled Gabapentin (Gabapentin) 300 Mg Cap 600 MG PO TID (Reported) Levetiracetam (Levetiracetam) 750 Mg Tab 750 MG PO BID (Reported) Oxycodone Base (Xtampza ER) 36 Mg Cap 36 MG PO BID (Reported) Scheduled PRN Albuterol Sulfate (Ventolin Hfa) 200 Puff/8 Gm Aers 2 PUFF INH Q4H PRN PRN SHORTNESS OF BREATH (Reported) Bisacodyl (Bisacodyl EC) 5 Mg Tab 5 MG PO DAILYPRN PRN PRN CONSTIPATION Diazepam (Diazepam) 10 Mg Tab 10 MG PO TID PRN PRN ANXIETY (Reported) Ibuprofen (Ibuprofen) 600 Mg Tab 600 MG PO Q6H PRN PRN PAIN (Reported) Zolpidem Tartrate (Ambien) 5 Mg Tab 5 MG PO QHS PRN PRN SLEEP (Reported) Allergies Coded Allergies: Latex (Verified Allergy, Intermediate, RASH, 08/23/16) Cyclobenzaprine (Verified Adverse Reaction, Intermediate, MUSCLE RELAXANTS CAUSED INC SPASM, 08/23/16) GME ATTESTATION GME ATTESTATION My preceptor for this patient encounter was physically present in the building during the encounter and was fully available. As needed, all aspects of the patient interview, examination, medical decision making process, and medical care plan development were reviewed and approved by the preceptor. Preceptor is aware and concurs with the plan as stated in the body of this note and will attest to such by his/her cosignature. ALONDRA CALHOUN DO Sep 04, 2016 10:05
[2016-09-04] MEDS: diazePAM 10 MG TAB PO PRN (10:41)
[2016-09-04] MEDS ORDERED: OXYC30TA84 PO (11:38)
== END 2016-09-04 15:29 | disposition home health service (06) | DRG 698 ==
LOC: EDBD 20:15 → M ED 21:01 → M ED INP 08-24 01:38 → M PCU 08-24 03:09 → M MSPAV 08-24 13:51
PROVIDERS: ADMIT Internal Medicine; ATTEND Internal Medicine
DX: T83.511A Infection and inflammatory reaction due to indwelling urethral catheter, initial encounter (principal); A41.9 Sepsis, unspecified organism; E46 Unspecified protein-calorie malnutrition; G82.20 Paraplegia, unspecified; Y84.6 Urinary catheterization as the cause of abnormal reaction of the patient, or of later complication, without mention of misadventure at the time of the procedure; G35 Multiple sclerosis; R33.9 Retention of urine, unspecified; N31.9 Neuromuscular dysfunction of bladder, unspecified; K59.00 Constipation, unspecified; D50.9 Iron deficiency anemia, unspecified; Z66 Do not resuscitate; G47.00 Insomnia, unspecified; L89.152 Pressure ulcer of sacral region, stage 2; B96.5 Pseudomonas (aeruginosa) (mallei) (pseudomallei) as the cause of diseases classified elsewhere; G89.29 Other chronic pain; M54.5 Low back pain; J45.909 Unspecified asthma, uncomplicated; Z88.8 Allergy status to other drugs, medicaments and biological substances; Z91.040 Latex allergy status; Z79.1 Long term (current) use of non-steroidal anti-inflammatories (NSAID); Z79.891 Long term (current) use of opiate analgesic; Z79.899 Other long term (current) drug therapy; Z82.0 Family history of epilepsy and other diseases of the nervous system; Z99.3 Dependence on wheelchair

== ENCOUNTER 2016-09-15 13:26 | Emergency (ER) | payer MEDICARE, OTHER ==
[~2016-09-15] VITALS: Ht 190.5 cm; Wt 61.2 kg
[~2016-09-15 13:26] MED LIST changes: +DULC5TAB PO; +OXYCO5TA PO; +[UNRECOGNIZED DRUG - CODE] PO
[2016-09-15 13:31] VITALS: BP 112/68
[2016-09-15] MEDS ORDERED: AMOXICILLIN 500 MG CAP PO ONE (13:45)
[2016-09-15] MEDS ORDERED: AMOXICILLIN 250 MG CAP PO ONE (13:45)
[2016-09-15] MEDS ORDERED: AMOX875T PO (13:49)
== END 2016-09-15 15:15 | disposition home or self-care (01) ==
LOC: EDBD 13:26 → M ED 13:59
DX: N39.0 Urinary tract infection, site not specified (principal); B95.2 Enterococcus as the cause of diseases classified elsewhere; B96.5 Pseudomonas (aeruginosa) (mallei) (pseudomallei) as the cause of diseases classified elsewhere; J45.909 Unspecified asthma, uncomplicated; F17.200 Nicotine dependence, unspecified, uncomplicated; G35 Multiple sclerosis; Z79.899 Other long term (current) drug therapy; Z88.8 Allergy status to other drugs, medicaments and biological substances; Z91.040 Latex allergy status; F11.21 Opioid dependence, in remission

== ENCOUNTER 2016-09-18 21:38 | Emergency (ER) | payer MEDICARE, OTHER ==
[~2016-09-18] VITALS: Ht 188 cm; Wt 61.2 kg
[2016-09-18] MEDS ORDERED: PROA1AER INH (22:03)
[2016-09-18 22:30] LABS: MEAN CORPUSCULAR HEMOGLOBIN 28.4 pg (27.0-33.0); MEAN CORPUSCULAR HGB CONC 32.2 g/dl (32.0-36.5); MEAN CORPUSCULAR VOLUME 88.3 fl (80.0-96.0); RED CELL DISTRIBUTION WIDTH 14.5 % (11.5-14.5); WHITE BLOOD COUNT 13.2 K/mm3 (4.0-10.0)
[2016-09-18 23:50] VITALS: BP 94/54
== END 2016-09-19 00:29 | disposition home or self-care (01) ==
LOC: M ED 22:24
DX: R53.81 Other malaise (principal); R53.83 Other fatigue; N39.0 Urinary tract infection, site not specified; F41.9 Anxiety disorder, unspecified; Z79.899 Other long term (current) drug therapy; Z88.8 Allergy status to other drugs, medicaments and biological substances; Z91.040 Latex allergy status

== ENCOUNTER 2016-09-26 13:18 | Emergency (ER) | payer MEDICARE, OTHER ==
[~2016-09-26 13:18] MED LIST changes: +PROA1AER INH
[2016-09-26] MEDS ORDERED: ISOVUE-370 76% 100ML VIAL (Q9967) As Ordered ONE (14:09)
[2016-09-26 14:25] LABS: BASO # 0.1 K/mm3 (0.0-0.2); BASO % 0.8 % (0.0-1.0); EOS # 0.3 K/mm3 (0.0-0.50); LARGE UNSTAINED CELL # 0.2 K/mm3 (0.0-0.4); LARGE UNSTAINED CELL % 1.4 % (0.0-4.0); LYMPH # 3.4 K/mm3 (1.5-4.5); LYMPH % 29.2 % (24.0-44.0); MEAN CORPUSCULAR HEMOGLOBIN 27.9 pg (27.0-33.0); MEAN CORPUSCULAR HGB CONC 32.1 g/dl (32.0-36.5); MEAN CORPUSCULAR VOLUME 86.8 fl (80.0-96.0); MONO # 0.7 K/mm3 (0.0-0.8); MONO % 6.6 % (0.0-5.0); NEUTROPHILS # 6.7 K/mm3 (1.8-7.7); NEUTROPHILS % 59.1 % (36.0-66.0); PLATELET COUNT, AUTOMATED 373 k/mm3 (150-450); WHITE BLOOD COUNT 11.3 K/mm3 (4.0-10.0)
[2016-09-26 15:21] LABS: ANION GAP 8 MEQ/L (8-16); BLOOD UREA NITROGEN 15 MG/DL (7-18); CALCIUM LEVEL 9.3 MG/DL (8.5-10.1); CARBON DIOXIDE LEVEL 31 MEQ/L (21-32); CHLORIDE LEVEL 100 MEQ/L (98-107); CREATININE FOR GFR 0.65 MG/DL (0.70-1.30); GLOMERULAR FILTRATION RATE > 60.0 (>60); GLUCOSE, FASTING 88 MG/DL (70-105); POTASSIUM SERUM 4.1 MEQ/L (3.5-5.1); SODIUM LEVEL 139 MEQ/L (136-145)
--- NOTE | 2016-09-26 16:58 | REP ---
CT ABDOMEN: HISTORY: Soft tissue abnormality over the sacrum. COMPARISON: CT, multiple, the latest 08/24/2016. CONTRAST: 100 mL [id number]. The lung bases are essentially unchanged. There are no pleural or pericardial effusions. There are minimal bilateral dependent subsegmental atelectatic changes. The liver is within normal limits as is the spleen, pancreas, adrenal glands and kidneys. They are unchanged. Once again, note is made of cholelithiasis. There is no significant change in the appearance of the bowel loops or their mesenteries. There is no evidence of free intraperitoneal fluid or air. CT PELVIS: There is no significant change in the appearance of the bowel loops or their mesenteries. Once again, there is a catheter in the urinary bladder. There is no evidence of free fluid or free air in the pelvis. There is no evidence of a pelvic mass or adenopathy. Evaluation of the soft tissues over the region of interest indicated on the patient's synapse power jacket "sacral ulcer", shows a slight degree of indurated subcutaneous fat with thickening of the skin spanning from the level of approximately S3 to the second or third coccygeal segment. This represents a change from the prior exam. There is no abnormal air density associated with this and there is no CT evidence of a breech in the integument. Bone window technique throughout the examination shows no significant change in the appearance of the osseous structures. IMPRESSION: 1. There is edematous skin and subcutanea over the sacrococcygeal region as described above without CT evidence of a well-defined abscess at this time. 2. There is known cholelithiasis, unchanged from the prior exam. 3. Other findings and chronic changes as described above. Signed by Fareed Paul DO 09/29/2016 03:08 P
[2016-09-26] MEDS ORDERED: CLIN1CAP5 PO (18:18)
[2016-09-26 18:45] VITALS: BP 144/89
== END 2016-09-26 18:42 | disposition home or self-care (01) ==
LOC: EDBD 13:18 → M ED 13:38
DX: S31.000A Unspecified open wound of lower back and pelvis without penetration into retroperitoneum, initial encounter (principal); X58.XXXA Exposure to other specified factors, initial encounter; Y92.89 Other specified places as the place of occurrence of the external cause; Y93.89 Activity, other specified; Y99.8 Other external cause status; Z79.899 Other long term (current) drug therapy; F12.90 Cannabis use, unspecified, uncomplicated; Z72.0 Tobacco use
CPT/HCPCS: 74177; 80048; 85025; 99282; Q9967

== ENCOUNTER 2016-10-03 11:30 | Emergency (ER) | payer MEDICARE, OTHER ==
[~2016-10-03] VITALS: Ht 185.4 cm; Wt 59.0 kg
[~2016-10-03 11:30] MED LIST changes: +CLIN1CAP5 PO
[2016-10-03 14:18] VITALS: BP 110/59
== END 2016-10-03 14:20 | disposition home or self-care (01) ==
LOC: EDBD 11:30 → M ED 12:15
DX: K56.41 Fecal impaction (principal); L89.151 Pressure ulcer of sacral region, stage 1; N31.9 Neuromuscular dysfunction of bladder, unspecified; G47.00 Insomnia, unspecified; M54.9 Dorsalgia, unspecified; G89.29 Other chronic pain; G35 Multiple sclerosis; K59.00 Constipation, unspecified; Z96.0 Presence of urogenital implants; Z79.899 Other long term (current) drug therapy; R33.9 Retention of urine, unspecified; T83.091A Other mechanical complication of indwelling urethral catheter, initial encounter; Y83.1 Surgical operation with implant of artificial internal device as the cause of abnormal reaction of the patient, or of later complication, without mention of misadventure at the time of the procedure; Z91.040 Latex allergy status; Z88.8 Allergy status to other drugs, medicaments and biological substances

== ENCOUNTER 2016-10-03 19:51 | Emergency (ER) | payer MEDICARE, OTHER ==
[2016-10-03 20:06] VITALS: BP 99/59
== END 2016-10-03 22:42 | disposition home or self-care (01) ==
LOC: EDBD 19:51 → M ED 20:47
DX: R33.9 Retention of urine, unspecified (principal); T83.091A Other mechanical complication of indwelling urethral catheter, initial encounter; Y83.1 Surgical operation with implant of artificial internal device as the cause of abnormal reaction of the patient, or of later complication, without mention of misadventure at the time of the procedure; G35 Multiple sclerosis; Z88.8 Allergy status to other drugs, medicaments and biological substances; Z91.040 Latex allergy status; Z79.899 Other long term (current) drug therapy

== ENCOUNTER 2016-10-11 11:48 | Emergency (ER) | payer MEDICARE, OTHER ==
[~2016-10-11] VITALS: Ht 188 cm; Wt 60.8 kg
[2016-10-11 12:35] LABS: MEAN CORPUSCULAR HEMOGLOBIN 29.3 pg (27.0-33.0); MEAN CORPUSCULAR VOLUME 88.8 fl (80.0-96.0); RED CELL DISTRIBUTION WIDTH 14.2 % (11.5-14.5); WHITE BLOOD COUNT 10.1 K/mm3 (4.0-10.0)
[2016-10-11 12:58] LABS: ANION GAP 10 MEQ/L (8-16); BLOOD UREA NITROGEN 11 MG/DL (7-18); CALCIUM LEVEL 8.9 MG/DL (8.5-10.1); CARBON DIOXIDE LEVEL 28 MEQ/L (21-32); CHLORIDE LEVEL 104 MEQ/L (98-107); CREATININE FOR GFR 0.61 MG/DL (0.70-1.30); GLOMERULAR FILTRATION RATE > 60.0 (>60); GLUCOSE, FASTING 89 MG/DL (70-105); POTASSIUM SERUM 4.1 MEQ/L (3.5-5.1); SODIUM LEVEL 142 MEQ/L (136-145)
[2016-10-11 13:39] VITALS: BP 104/61
== END 2016-10-11 14:13 | disposition home or self-care (01) ==
LOC: EDBD 11:48 → M ED 12:39
DX: L89.152 Pressure ulcer of sacral region, stage 2 (principal); G89.4 Chronic pain syndrome; Z96.0 Presence of urogenital implants; E46 Unspecified protein-calorie malnutrition; G35 Multiple sclerosis; I51.9 Heart disease, unspecified; Z88.8 Allergy status to other drugs, medicaments and biological substances; Z91.040 Latex allergy status; Z79.899 Other long term (current) drug therapy

== ENCOUNTER 2016-10-15 14:40 | Emergency (ER) | payer MEDICARE, OTHER, MEDICAID ==
[~2016-10-15] VITALS: Ht 188 cm; Wt 61.2 kg
[2016-10-15 14:47] VITALS: BP_DIAS 80
--- NOTE | 2016-10-15 16:22 | REP ---
Clinical: Abdominal pain. Technique: Two supine views of the abdomen and pelvis. Findings: Fecal stasis and possible fecal impaction at the rectum requires correlation. No bowel obstruction. No organomegaly. Skeletal structures stable. Impression: Nonspecific bowel gas pattern. Cannot exclude fecal stasis and possible fecal impaction at the rectum. Signed by Brandon Doss MD 10/15/2016 04:14 P
[2016-10-15 16:42] LABS: CALCIUM OXALATE CRYSTALS SMALL; MEAN CORPUSCULAR HEMOGLOBIN 28.5 pg (27.0-33.0); MEAN CORPUSCULAR HGB CONC 32.9 g/dl (32.0-36.5); MEAN CORPUSCULAR VOLUME 86.6 fl (80.0-96.0); RED CELL DISTRIBUTION WIDTH 14.1 % (11.5-14.5); WHITE BLOOD COUNT 9.1 K/mm3 (4.0-10.0)
[2016-10-15 17:04] LABS: ALBUMIN 3.2 GM/DL (3.2-5.2); ALBUMIN/GLOBULIN RATIO 0.89 (1.00-1.93); ALKALINE PHOSPHATASE 108 U/L (45-117); ALT/SGPT 11 U/L (12-78); ANION GAP 6 MEQ/L (8-16); AST/SGOT 6 U/L (15-37); BILIRUBIN,TOTAL 0.2 MG/DL (0.2-1.0); BLOOD UREA NITROGEN 11 MG/DL (7-18); CALCIUM LEVEL 8.6 MG/DL (8.5-10.1); CARBON DIOXIDE LEVEL 31 MEQ/L (21-32); CHLORIDE LEVEL 105 MEQ/L (98-107); CREATININE FOR GFR 0.57 MG/DL (0.70-1.30); GLOMERULAR FILTRATION RATE > 60.0 (>60); GLUCOSE, FASTING 87 MG/DL (70-105); SODIUM LEVEL 142 MEQ/L (136-145); TOTAL PROTEIN 6.8 GM/DL (6.4-8.2)
[2016-10-15] MEDS ORDERED: FLEET ENEMA PR ONE (20:00)
[2016-10-15] MEDS ORDERED: NS 1,000 ML IV SCH (20:00)
[2016-10-15] MEDS ORDERED: METHYLNALTREXONE BROMIDE 12 MG/0.6 ML VIAL (RELISTOR) SC ONE (21:15)
[2016-10-15] MEDS ORDERED: MAGNESIUM CITRATE 300 ML BTL PO ONE (21:15)
[2016-10-16 00:13] VITALS: BP_SYST 123
== END 2016-10-16 00:16 | disposition home or self-care (01) ==
LOC: M ED 15:56
DX: K59.00 Constipation, unspecified (principal); G89.29 Other chronic pain; R10.9 Unspecified abdominal pain; M54.2 Cervicalgia; G35 Multiple sclerosis; J45.909 Unspecified asthma, uncomplicated; N31.9 Neuromuscular dysfunction of bladder, unspecified; Z96.0 Presence of urogenital implants; Z79.899 Other long term (current) drug therapy; Z88.8 Allergy status to other drugs, medicaments and biological substances; Z91.040 Latex allergy status

== ENCOUNTER 2016-10-19 15:35 | Emergency (ER) | payer MEDICARE, OTHER ==
[2016-10-19 16:49] VITALS: BP 92/51
== END 2016-10-19 16:59 | disposition home or self-care (01) ==
LOC: M ED 15:49
DX: G35 Multiple sclerosis (principal); L89.152 Pressure ulcer of sacral region, stage 2; F11.20 Opioid dependence, uncomplicated; Z87.440 Personal history of urinary (tract) infections; F17.210 Nicotine dependence, cigarettes, uncomplicated; Z79.899 Other long term (current) drug therapy; Z88.8 Allergy status to other drugs, medicaments and biological substances; Z91.040 Latex allergy status

== ENCOUNTER 2016-10-27 17:15 | Emergency (ER) | payer MEDICARE, MEDICAID ==
[~2016-10-27] VITALS: Ht 188 cm; Wt 61.2 kg
[2016-10-27] MEDS ORDERED: [UNRECOGNIZED DRUG - CODE] (17:32)
[2016-10-27] MEDS ORDERED: CLIN1CAP5 (17:32)
[2016-10-27 19:26] VITALS: BP 108/59
== END 2016-10-27 19:25 | disposition home or self-care (01) ==
LOC: M ED 17:49
DX: L89.152 Pressure ulcer of sacral region, stage 2 (principal); G35 Multiple sclerosis; F17.210 Nicotine dependence, cigarettes, uncomplicated; Z79.899 Other long term (current) drug therapy; Z79.2 Long term (current) use of antibiotics; Z88.8 Allergy status to other drugs, medicaments and biological substances; Z91.040 Latex allergy status

== ENCOUNTER → 2016-10-31 | Outpatient (REF) ==
[~2016-10-31] MED LIST changes: +CLIN1CAP5; +[UNRECOGNIZED DRUG - CODE]
== END ==
LOC: M LAB 11:33
DX: Z02.89 Encounter for other administrative examinations